=== PATIENT | female | born 1940 | race Two or more races ===

== ENCOUNTER 2020-11-12 09:21 | Outpatient (REF) | payer MEDICARE, SELFPAY ==
[2020-11-12 11:02] LABS: Alanine Aminotransferase 12 U/L (0-31); Albumin Level 4.2 g/dL (3.5-5.0); Alkaline Phosphatase 91 U/L (39-117); Anion Gap 13 (12-20); Aspartate Amino Transferase 16 U/L (5-31); Bilirubin Total 0.8 mg/dL (0.0-1.0); Blood Urea Nitrogen 17 mg/dL (9-16); Calcium 9.5 mg/dL (8.4-10.2); Carbon Dioxide 29 mmol/L (22-29); Chloride 103 mmol/L (96-108); Cholesterol 178 mg/dL; Estimated Glomerular Filt Rate > 60; Glucose Fasting 99 mg/dL (60-99); HDL Cholesterol 56 mg/dL; LDL Cholesterol Calculated 89 mg/dl; Sodium 141 mmol/L (135-145); Total Protein 7.5 g/dL (6.5-8.0); Triglycerides 167 mg/dL
[2020-11-20 20:57] LABS: Vitamin D 25-OH, D2 4 ng/mL; Vitamin D 25-OH, D3 27 ng/mL; Vitamin D 25-OH, Total 31 ng/mL (30-100)
== END 2020-11-12 09:22 | disposition home or self-care (01) ==
LOC: HO.LAB 09:21
PROVIDERS: PCP Internal Medicine; Visit Provider Internal Medicine
DX: E78.00 Pure hypercholesterolemia, unspecified (principal); E78.5 Hyperlipidemia, unspecified; E55.9 Vitamin D deficiency, unspecified
CPT/HCPCS: 36415; 80053; 80061; 82306

== ENCOUNTER 2021-02-20 21:41 | Emergency (ER) | payer MEDICARE, SELFPAY ==
[2021-02-20 21:56] VITALS: BP 227/96; PULSE 92; RESP 18; TEMP 36.8; O2SAT 93; BMI 34.5
--- NOTE | 2021-02-20 22:56 | ED_ITS ---
HPI - General Adult General Chief complaint: General Medical Stated complaint: High blood pressure Time Seen by Provider: 02/20/21 22:56 Source: patient and family (Daughter) Limitations: language barrier ([place]er speaking preferred daughter as her cell phone repair technician daughter speaks Faroese.) History of Present Illness HPI narrative: Pleasant primarily [place] Islander-speaking 80-year-old female prefers daughter as her medical esthetician who is at bedside she has a history of hyperlipidemia as well as hypertension she is currently taking lisinopril fully mg once a day and also atorvastatin she reports yesterday during routine screening she had blood pressure checked by visiting nurse through routine medical screening through insurance and found to have blood pressure that was elevated at 226/108 subsequently states she did not feel too well of feeling a little lightheaded and today she went to the pharmacy to recheck her blood pressure it was 226/118 with heart rate of 96 and this prompted her to come to the emergency room. She otherwise denies any chest pain or headache, no recent illness. States she has been compliant with her medications. She offers no other complaints. Onset (ago): day(s) Severity: moderate Pain Consistency: constant Relieving factors: none Exacerbating factors: none Associated symptoms: denies other symptoms Related Data Previous Rx's Medication Instructions Recorded loratadine 10 mg tablet 10 mg PO DAILY PRN 30 Days #30 tab 10/22/20 atorvastatin 10 mg tablet 10 mg PO DAILY #90 tab 12/04/20 lisinopril 40 mg tablet 40 mg PO DAILY #90 tab 12/04/20 hydrochlorothiazide 12.5 mg PO DAILY #14 tab 02/21/21 Allergies Allergy/AdvReac Type Severity Reaction Status Date / Time No Known Allergies Allergy Verified 02/20/21 21:56 Review of Systems Review of Systems: Constitutional: No Weight loss, No Fever, No Chills, No Night Sweats, No Fatigue, No Malaise ENT/Mouth: No Hearing loss, No Ear Pain, No Nasal Congestion, No Sinus Pain, No Hoarseness, No sore throat, No Rhinorrhea, No Swallowing Difficulty Eyes: No Eye Pain, No Swelling, No Redness, No Foreign Body, No Discharge, No Vision Changes Cardiovascular: No Chest Pain, No SOB, No Dyspnea on Exertion, No Orthopnea, No Edema, No Palpitations Respiratory: No Cough, No Sputum, No Wheezing, No Smoke Exposure, No Dyspnea Gastrointestinal: No Nausea, No Vomiting, No Diarrhea, No Constipation, No abdominal Pain, No Hematochezia, No Melena Genitourinary: no irregular bleeding, No Dysuria, No Urinary Frequency, No Hematuria, No Urinary Incontinence, No Urgency, No Flank Pain, No Urinary Flow Changes, No Hesitancy Musculoskeletal: No joint pain, No Myalgias, No Joint Swelling Skin: No Skin Lesions, No rash Neuro: No Weakness, No Numbness, No Paresthesias, No Loss of Consciousness, No Dizziness, No Headache Psych: No Social Issues Heme/Lymph: No Bruising, No Bleeding,No Lymphadenopathy Endocrine: No Polyuria, No Polydipsia, No Temperature Intolerance Yes all o ther systems are reviewed and are negative [facility] Past Medical History Medical History (Updated 02/21/21 @ 01:58 by Shivam Hollins NP) Hypertension Pure hypercholesterolemia Social History Social History Alcohol intake: never Smoked in Last 30 Days: No Use of substances other than those prescribed or required for medical reasons: No Advance Directives: No Advance Directives Information Provided: No Physical Exam Vital Signs: Vital Signs: Last Vital Signs Temp 98.3 F 02/20/21 21:56 Pulse 78 02/21/21 01:32 Resp 18 02/21/21 01:01 BP 159/69 H 02/21/21 01:32 Pulse Ox 97 02/21/21 01:32 Body Mass Index 34.5 Reviewed Const: General: cooperative and healthy appearing; No acute distress or intoxicated appearing Nutritional Appearance: average body habitus Orientation/consciousness: patient oriented x3 HENMT: Head: Yes normal to inspection Ears: hearing grossly normal bilaterally Eyes: General: appearance normal, both eyes and all related structures Visual Kirkpatrick: normal visual kirkpatrick by confrontation Neck: Neck: Yes normal visual inspection, No positive Brudzinski's sign, No positive Kernig's sign and No tender Thyroid: Thyroid normal Chest: Chest palpation & inspection: normal inspection of the chest Resp: Effort & Inspection: normal respiratory effort Auscultation: clear to auscultation bilaterally Cardio: Jugular venous distension: no JVD Rhythm: regular rhythm Heart sounds: S1 normal heart sound present and S2 normal heart sound present GI: Inspection: Yes normal to inspection Percussion: Yes normal to percussion Auscultation: normal bowel sounds : General: Yes no CVA tenderness Back/Spine/Pelvis: Back: no CVA tenderness Skin: General skin exam: no rashes or lesions noted Neuro: General: patient oriented x3 Extrem: General: Yes normal to inspection Course Reevaluation(s) Reevaluation #1: Blood pressure 227/96 on arrival Essentially no other complaints did have mild lightheadedness earlier today. Will check basic labs, EKG and she is currently on 40 mg lisinopril p.o. daily stuck in the morning I will give her 10 mg of IV labetalol and monitor. Reevaluation #2: Has been resting comfortably without complaints. Gradual decrease her blood pressure to 178/80 after 2 hours 159/69 after 3 hours with 1 dose of labetalol. I will start her on low-dose hydrochlorothiazide 12.5 which she will take at noon and in the morning she will take her lisinopril 40 mg. Her labs are otherwise reassuring. She will follow-up with her primary care doctor in 2 days. In the meantime she will keep a log of her blood pressure readings intake her primary care appointment. She feels comfortable plan as well as her daughter. Findings reviewed as well as falling low-sodium diet return and follow-up instructions. Stable for discharge. Medical Decision Making Lab Data Result diagrams: 02/20/21 23:46 02/20/21 23:45 Labs: Lab Results 02/20/21 02/20/21 02/20/21 Range/Units 23:45 23:46 23:46 WBC 9.5 (4.8-10.8) X10*3/uL RBC 4.20 (4.20-5.50) X10*6/uL Hgb 12.9 (12.0-16.0) g/dl Hct 38.0 (37-47) % MCV 90.5 (80-98) fL MCH 30.7 (27.0-33.0) pg MCHC 33.9 (31.0-35.0) g/dl RDW 12.4 (11.0-16.0) % Plt Count 252 (160-400) X10*3/uL MPV 9.6 (9.4-12.3) fL Immature Gran % (Auto) 0.2 (0.0-0.4) % Neut % (Auto) 64.3 (45-73) % Lymph % (Auto) 23.7 (20-40) % [place] % (Auto) 9.0 (2-11) % Eos % (Auto) 2.0 (0-4) % Baso % (Auto) 0.8 (0-2) % Lymph # (Auto) 2.2 (1.2-4.9) X10*3/uL [place] # (Auto) 0.9 (0.1-1.2) X10*3/uL Eos # (Auto) 0.2 (0.0-0.4) X10*3/uL Baso # (Auto) 0.1 (0.0-0.2) X10*3/uL Abs Immat Gran (auto) 0.02 (0.00-0.03) X10*3/uL Absolute Neuts (auto) 6.1 (2.0-8.3) X10*3/uL Absolute Nucleated RBC 0.000 (0.0-0.012) X10*3/uL Nucleated RBC % (auto) 0.0 (0.0-0.2) /100WBC PT 12.3 (10.8-13.0) SEC INR 1.0 (0.9-1.1) APTT 30.7 (24.1-38.0) SEC Sodium 141 (135-145) mmol/L Potassium 4.2 (3.3-5.1) mmol/L Chloride 106 (96-108) mmol/L Carbon Dioxide 28 (22-29) mmol/L Anion Gap 11 L (12-20) BUN 14 (9-16) mg/dL Creatinine 0.83 (0.5-1.4) mg/dL Estim Creat Clear Calc 65.6 Estimated GFR > 60 Random Glucose 107 (60-115) mg/dL Calcium 9.1 (8.4-10.2) mg/dL Total Bilirubin 0.4 (0.0-1.0) mg/dL AST 19 (5-31) U/L ALT 13 (0-31) U/L Alkaline Phosphatase 88 (39-117) U/L Troponin I High Sens (<3.5-17.0) ng/L Total Protein 7.1 (6.5-8.0) g/dL Albumin 4.0 (3.5-5.0) g/dL Urine Color Urine Appearance Urine pH (5.0-8.0) Ur Specific [place] (1.005-1.025) Urine Protein (NEG-TRACE) MG/DL Urine Glucose (UA) (NEG) MG/DL Urine Ketones (NEG) MG/DL Urine Blood (NEG) Urine Nitrite (NEG) Ur Leukocyte Esterase (NEG) Urine RBC (0) /HPF Urine WBC (0-4) /HPF Ur Squamous Epith Cells /LPF Urine Bacteria /LPF 02/20/21 02/21/21 Range/Units 23:46 00:19 WBC (4.8-10.8) X10*3/uL RBC (4.20-5.50) X10*6/uL Hgb (12.0-16.0) g/dl Hct (37-47) % MCV (80-98) fL MCH (27.0-33.0) pg MCHC (31.0-35.0) g/dl RDW (11.0-16.0) % Plt Count (160-400) X10*3/uL MPV (9.4-12.3) fL Immature Gran % (Auto) (0.0-0.4) % Neut % (Auto) (45-73) % Lymph % (Auto) (20-40) % [place] % (Auto) (2-11) % Eos % (Auto) (0-4) % Baso % (Auto) (0-2) % Lymph # (Auto) (1.2-4.9) X10*3/uL [place] # (Auto) (0.1-1.2) X10*3/uL Eos # (Auto) (0.0-0.4) X10*3/uL Baso # (Auto) (0.0-0.2) X10*3/uL Abs Immat Gran (auto) (0.00-0.03) X10*3/uL Absolute Neuts (auto) (2.0-8.3) X10*3/uL Absolute Nucleated RBC (0.0-0.012) X10*3/uL Nucleated RBC % (auto) (0.0-0.2) /100WBC PT (10.8-13.0) SEC INR (0.9-1.1) APTT (24.1-38.0) SEC Sodium (135-145) mmol/L Potassium (3.3-5.1) mmol/L Chloride (96-108) mmol/L Carbon Dioxide (22-29) mmol/L Anion Gap (12-20) BUN (9-16) mg/dL Creatinine (0.5-1.4) mg/dL Estim Creat Clear Calc Estimated GFR Random Glucose (60-115) mg/dL Calcium (8.4-10.2) mg/dL Total Bilirubin (0.0-1.0) mg/dL AST (5-31) U/L ALT (0-31) U/L Alkaline Phosphatase (39-117) U/L Troponin I High Sens 3.9 (<3.5-17.0) ng/L Total Protein (6.5-8.0) g/dL Albumin (3.5-5.0) g/dL Urine Color STRAW Urine Appearance CLEAR Urine pH 6.0 (5.0-8.0) Ur Specific [place] <= 1.005 (1.005-1.025) Urine Protein NEG (NEG-TRACE) MG/DL Urine Glucose (UA) NEG (NEG) MG/DL Urine Ketones NEG (NEG) MG/DL Urine Blood NEG (NEG) Urine Nitrite NEG (NEG) Ur Leukocyte Esterase 2+ H (NEG) Urine RBC 0 (0) /HPF Urine WBC 1-4 (0-4) /HPF Ur Squamous Epith Cells 2+ /LPF Urine Bacteria TRACE /LPF ECG Data Interpretation: Vent. Rate : 081 BPM Atrial Rate : 081 BPM P-R Int : 168 ms QRS Dur : 084 ms QT Int : 400 ms P-R-T Axes : 059 079 028 degrees QTc Int : 464 ms Normal sinus rhythm Normal ECG When compared with ECG of 25-DEC-2018 11:55, Premature supraventricular complexes are no longer Present Discharge Plan Discharge Clinical Impression: Hypertension Patient Disposition: Home, Self-Care Instructions: Heart Healthy Diet (ED), Low-Sodium Diet (ED), Hypertension (ED) Additional Instructions: Taking medications prescribed Keep blood pressure log of all your blood pressure Follow up with her primary care doctor in 2 days for blood pressure check Return to emergency room if any concerns or worsening symptoms Thank you Prescriptions: New hydrochlorothiazide 12.5 mg tablet 12.5 mg PO DAILY Qty: 14 RF: 0 No Action loratadine [Allergy Relief (loratadine)] 10 mg tablet 10 mg PO DAILY PRN (Reason: allergy symptoms) 30 Days Qty: 30 RF: 0 atorvastatin 10 mg tablet 10 mg PO DAILY Qty: 90 RF: 2 lisinopril 40 mg tablet 40 mg PO DAILY Qty: 90 RF: 1 Referrals: Trina Briones MD [Primary Care Provider] - 2 days
--- NOTE | 2021-02-20 23:06 | ECG_ITS ---
Test Reason : HYPERTENSION Blood Pressure : / mmHG Vent. Rate : 081 BPM Atrial Rate : 081 BPM P-R Int : 168 ms QRS Dur : 084 ms QT Int : 400 ms P-R-T Axes : 059 079 028 degrees QTc Int : 464 ms Normal sinus rhythm Normal ECG When compared with ECG of 25-DEC-2018 11:55, Premature supraventricular complexes are no longer Present Referred By: Shivam Hollins Electronically Signed By:Baldev Morejon
[2021-02-20 23:17] VITALS: BP 192/82; PULSE 79
[2021-02-20 23:32] VITALS: BP 185/84
[2021-02-20 23:51] LABS: Basophils Absolute Auto 0.1 X10*3/uL (0.0-0.2); Basophils Percent Auto 0.8 % (0-2); Eosinophils Absolute Auto 0.2 X10*3/uL (0.0-0.4); Hemoglobin 12.9 g/dl (12.0-16.0); Imm Gran Abs Auto 0.02 X10*3/uL (0.00-0.03); Imm Gran Pct Auto 0.2 % (0.0-0.4); Lymphocytes Absolute Auto 2.2 X10*3/uL (1.2-4.9); Lymphocytes Percent Auto 23.7 % (20-40); MANUAL DIFF FLAG NO; Mean Corpuscular HGB Conc 33.9 g/dl (31.0-35.0); Mean Corpuscular Hemoglobin 30.7 pg (27.0-33.0); Mean Corpuscular Volume 90.5 fL (80-98); Mean Platelet Volume 9.6 fL (9.4-12.3); Monocytes Absolute Auto 0.9 X10*3/uL (0.1-1.2); Neutrophils Absolute Auto 6.1 X10*3/uL (2.0-8.3); Neutrophils Percent Auto 64.3 % (45-73); Platelet Count 252 X10*3/uL (160-400); Red Cell Distribution Width 12.4 % (11.0-16.0); White Blood Count 9.5 X10*3/uL (4.8-10.8)
[2021-02-20 23:53] VITALS: BP 208/82; PULSE 80; RESP 18; O2SAT 93
[2021-02-20 23:54] VITALS: BP 208/82; PULSE 80
[2021-02-20] MEDS: Labetalol HCL 100 MG/20 ML VIAL 10 MG IVPUSH (23:54)
[2021-02-20 23:56] LABS: Prothrombin Time 12.3 SEC (10.8-13.0)
[2021-02-20 23:59] LABS: Partial Thromboplastin Time 30.7 SEC (24.1-38.0)
[2021-02-21] VITALS: BP 182/79; PULSE 77; RESP 18; O2SAT 87
--- NOTE | 2021-02-21 00:04 | PC.NURSE ---
pt sat dropped to 88% . pt placed on 2l nc sat improved now to 94%. pt daughter states pt has been having sob when walking. pt received both covid vac but has not been tested for covid. pt has been under stress about a travel plan her has, pt doesnt want them to go out of the country.
[2021-02-21 00:07] VITALS: BP 178/80; PULSE 69; RESP 18; O2SAT 97
[2021-02-21 00:14] LABS: Alanine Aminotransferase 13 U/L (0-31); Alkaline Phosphatase 88 U/L (39-117); Anion Gap 11 (12-20); Aspartate Amino Transferase 19 U/L (5-31); Bilirubin Total 0.4 mg/dL (0.0-1.0); Blood Urea Nitrogen 14 mg/dL (9-16); Calcium 9.1 mg/dL (8.4-10.2); Carbon Dioxide 28 mmol/L (22-29); Chloride 106 mmol/L (96-108); Creatinine Clr Calc Pharmacy 65.6; Estimated Glomerular Filt Rate > 60; Glucose Random 107 mg/dL (60-115); Potassium 4.2 mmol/L (3.3-5.1); Sodium 141 mmol/L (135-145); Total Protein 7.1 g/dL (6.5-8.0)
[2021-02-21 00:17] LABS: Troponin-I High Sensitivity 3.9 ng/L (<3.5-17.0)
[2021-02-21 00:30] LABS: Appearance Urine CLEAR; Color Urine STRAW; Glucose Urine UA NEG (NEG); Leukocyte Esterase Urine 2+ (NEG); Nitrite Urine NEG (NEG); Specific Gravity - Urine <= 1.005 (1.005-1.025); UACC Culture Trigger YES; Urine Blood NEG (NEG); Urine Ketones NEG (NEG); Urine Protein NEG (NEG-TRACE)
[2021-02-21 00:36] LABS: Bacteria Urine TRACE /LPF; RBC Urine 0 /HPF (0); Squamous Epithelial Cell Urine 2+ /LPF; UACC CULT YES
[2021-02-21 01:01] VITALS: BP 178/89; PULSE 78; RESP 18; O2SAT 98
[2021-02-21 01:05] VITALS: BP 174/91
[2021-02-21 01:32] VITALS: BP 159/69; PULSE 78; O2SAT 97
== END 2021-02-21 02:05 | disposition home or self-care (01) ==
PROVIDERS: Nurse Practitioner Primary Care; Emergency Provider Internal Medicine; PCP Internal Medicine
DX: I10 Essential (primary) hypertension (principal); Z79.899 Other long term (current) drug therapy
CPT/HCPCS: 36415; 80053; 81001; 84484; 85025; 85610; 85730; 87086; 93005; 96374; 99284; 99285

== ENCOUNTER 2021-12-14 12:20 | Outpatient (REF) | payer MEDICARE, SELFPAY ==
--- NOTE | ~2021-12-14 | XR_ITS ---
EXAMINATION: XR LUMBOSACRAL SPINE CLINICAL INFORMATION: Low back pain COMPARISON: CT abdomen pelvis 01/29/2019 TECHNIQUE: Three views of the lumbosacral spine. FINDINGS: 5 nonrib-bearing lumbar vertebral bodies are visualized. There is mild anterolisthesis of L4 and L5. Alignment is otherwise unremarkable. Lumbar vertebral body heights are maintained. There is mild narrowing of the L4/L5 and L5/S1 disc space heights. There are degenerative changes of the posterior elements of the lower lumbar spine. Sacroiliac joints are grossly symmetric. Vascular calcifications noted. XR/XR lumbar spine 2-3V IMPRESSION: Mild degenerative changes of the lower lumbar spine. No compression deformity.
== END 2021-12-14 12:21 | disposition home or self-care (01) ==
LOC: HO.XRAY 12:20
PROVIDERS: PCP Internal Medicine; Visit Provider Internal Medicine
DX: M54.50 Low back pain, unspecified (principal)
CPT/HCPCS: 72100

== ENCOUNTER 2022-01-22 09:39 | Outpatient (REF) | payer MEDICARE, SELFPAY ==
--- NOTE | ~2022-01-22 | XR_ITS ---
EXAMINATION: XR CHEST CLINICAL INFORMATION: Shortness of breath. COMPARISON: None TECHNIQUE: 2 views of the chest were obtained. FINDINGS: There is increased pulmonary vascular markings suggestive of mild CHF. The heart size is borderline enlarged. The lungs are expanded and clear. No gross bony abnormality seen. XR/XR chest 2V IMPRESSION: Mild CHF with borderline cardiomegaly.
[2022-01-22 10:55] LABS: Hematocrit 40.8 % (37.0-47.0); Hemoglobin 13.5 g/dl (12.0-16.0); Mean Corpuscular HGB Conc 33.1 g/dl (31.0-35.0); Mean Corpuscular Hemoglobin 30.9 pg (27.0-33.0); Mean Corpuscular Volume 93.4 fL (80.0-98.0); Mean Platelet Volume 9.5 fL (9.4-12.3); Platelet Count 292 X10*3/uL (160-400); Red Blood Count 4.37 X10*6/uL (4.20-5.50); Red Cell Distribution Width 12.8 % (11.0-16.0); White Blood Count 8.2 X10*3/uL (4.8-10.8)
[2022-01-22 11:05] LABS: Anion Gap 13 (12-20); Blood Urea Nitrogen 18 mg/dL (9-16); Calcium 9.7 mg/dL (8.4-10.2); Carbon Dioxide 26 mmol/L (22-29); Chloride 104 mmol/L (96-108); Estimated Glomerular Filt Rate > 60; Glucose Random 104 mg/dL (60-115); Potassium 4.2 mmol/L (3.3-5.1); Sodium 139 mmol/L (135-145)
[2022-01-22 11:25] LABS: B Type Natriuretic Peptide 52 pg/mL (<100)
== END 2022-01-22 09:40 | disposition home or self-care (01) ==
LOC: HO.XRAY 09:39
PROVIDERS: PCP Internal Medicine; Referring Provider Internal Medicine; Visit Provider Internal Medicine Cardiovascular Disease
DX: I10 Essential (primary) hypertension (principal); E78.5 Hyperlipidemia, unspecified; R06.02 Shortness of breath; Z79.899 Other long term (current) drug therapy
CPT/HCPCS: 36415; 71046; 80048; 83880; 85027; 93005; 99202

== ENCOUNTER → 2022-02-02 10:27 | Outpatient (BNVA) | payer MEDICARE, SELFPAY | PROVIDERS: PCP Internal Medicine; Visit Provider Surgery Vascular Surgery | DX: I83.11 Varicose veins of right lower extremity with inflammation (principal) | CPT/HCPCS: 99202 ==

== ENCOUNTER → 2022-02-12 10:00 | Outpatient (REF) | payer MEDICARE, SELFPAY ==
--- NOTE | ~2022-02-12 | NM_ITS ---
Myocardial perfusion study Indication: Shortness of breath evaluate for myocardial ischemia Technique: The patient was brought in for a Lexiscan perfusion study on 02/12/2022. Patient performed low-level exercise and was injected 0.4 mg of Lexiscan intravenously. Within a minute of injection, 30 mCi of sestamibi was given intravenously. Images were obtained using the SPECT gamma camera interlaced with the gating device. Images were obtained in supine position. Resting perfusion study was performed on 02/15/2022. Patient was administered 30 mCi of sestamibi intravenously at rest. Images were then obtained in supine position. Images obtained with and without CT attenuation. Total DLP 122 mGy-cm. Images were processed with the software and compared side to side in short axis, horizontal long axis and vertical long axis views. Findings: The stress perfusion study showed non attenuated and attenuated corrected images show normal uptake of radiotracer in all segments of LV myocardium.. The gated study shows normal LV systolic function with calculated LVEF of 67%. LV cavity is normal in size. The gated study shows normal systolic wall thickening and contraction of segments. Resting study shows no change in perfusion pattern compared to stress perfusion study. Gating at rest reveals normal systolic wall motion with ejection fraction at 62%. The findings are consistent with normal myocardial perfusion. NM/NM pati perf SPECT rest & str Impression: 1. Myocardial perfusion imaging study shows normal myocardial perfusion 2. Gated LVEF is 67% 3. Transient ischemic dilatation not present EKG is nondiagnostic for ischemia
--- NOTE | 2022-02-12 10:05 | CA_ITS ---
Acquisition Time: 2022-02-12 10:23:13 Total Exercise Time: 00:02:00 Test Indications: SOB Medications: AMLODIPINE ASA LISINOPRIL ATORVASTATIN Protocol: LEXISCAN Max HR: 126 BPM 89% of Pred: 141 BPM Max BP: 132/080 mmHG Max Work Load: 1.0 METS Pharmacological stress test with Lexiscan injection, while sitting and kicking her legs, without anginal symptoms, with isolated PACs, with norotensive response to injection, with nondiagnostic EKG for ischemia. In recovery she had prolonged sinus tachycardia that was treated with Aminophylline 75mg IVP to reverse lexican with improvement in heart rate. Nuclear images pending. Test reviewed with Dr Izquierdo. Referred By: Isaiah Izquierdo Overread By: LEE PERDOMO
== END ==
LOC: HO.CARD 10:00
PROVIDERS: Visit Provider Internal Medicine Cardiovascular Disease
DX: R06.02 Shortness of breath (principal)
CPT/HCPCS: 78452; 93017; A9500; J0280; J2785

== ENCOUNTER → 2022-03-09 08:02 | Outpatient (REF) | payer MEDICARE, SELFPAY ==
--- NOTE | 2022-03-09 08:10 | CA_ITS ---
Transthoracic Echocardiogram Patient (Last, First, Middle): Araseli Chávez E Gender: Female Date of : 1940 Age: 81 Procedure Date: 03/09/2022 Procedure Type: Transthoracic Echocardiogram Location: OP Height: 152.4 cm Weight: 147.87 kg BSA: 2.30 m2 Heart Rate: 96 bpm BP: 120 / 80 mmHg Business Intelligence Administrator: SENTHIL Referring MD: Isaiah Izquierdo MD Culturist: Isaiah Izquierdo MD Symptoms: R06.02 - Shortness of breath Study Quality: Adequate ECG Rhythm: Sinus Conclusions: - 1. Normal LV systolic function with impaired relaxation filling pattern and elevated filling pressures 2. Mild to moderate aortic stenosis 3. Severe mitral annular calcification 4. No gross pericardial effusion Findings Left Ventricle Normal left ventricular size, thickness, and systolic function. The visually estimated ejection fraction is between 60-65%. Regional wall motion abnormalities can not be excluded due to suboptimal endocardial definition. Spectral Doppler is indicative of an impaired relaxation filling pattern. Elevated filling pressures. E/E prime ratio is >15, consistent with elevated filling pressures. Right Ventricle Normal right ventricular cavity size and systolic function. Atria The left atrium is likely dilated. There is no evidence of interatrial shunt. The right atrium was not well visualized. Aortic Valve There is mild calcification of the aortic valve. There is mild thickening of the aortic valve. There is mild to moderate aortic valve stenosis. The mean gradient is 11 mmHg. The aortic valve area is 1.29 cm2. There is no aortic valve regurgitation. Mitral Valve There is mild anterior and severe posterior mitral leaflet thickening. There is severe mitral annular calcification. There is trace mitral valve regurgitation. There is no mitral valve stenosis. Pulmonic Valve The pulmonic valve was not well visualized. Tricuspid Valve The tricuspid valve was not well visualized. Tricuspid regurgitation envelope is inadequate for calculation of right ventricular systolic pressure. Normal right atrial pressure. Great Vessels All visible segments of the aorta are normal in size. The pulmonary artery was not well visualized. Venous The inferior vena cava is normal in size and collapses greater than 50% with inspiration. Pericardium/Pleural There is no evidence of pericardial effusion. Prior Study Comparison No prior study available for comparison. Measurements 2D Linear Measurements IVSd: 1.10 0.6-0.9/0.6-1.0 cm LVIDd: 4.85 3.9-5.3/4.2-5.9 cm LVIDs: 2.74 2.0-3.6 cm LVPWd: 0.75 0.7-1.1 cm LA Diam: 3.90 2.7-3.8/3.0-4.0 cm LV Mass: 193.59 67-162/88-224 g LVOT Diam: 1.90 3.0+(-)1.3 cm 2D Systolic Function EF 4C: 59.60 >55% EF 2C: 71.80 >55% EF BiP: 64.60 >55% Mitral Valve MV Pk E: 1.09 MV PK A: 1.34 MV Decel Time: 194.00 E/A: 0.80 E'Lateral: 5.66 E'Medial: 3.05 E/E' Med: 35.70 E/E' Lat: 19.30 PHT: 57.00 MVA PHT: 3.86 Decel [place]: 5.61 Aortic Valve AoV Pk Jono: 2.25 AoV Mn Jono: 1.55 AoV VTI: 0.50 AoV Pk Grad: 20.00 Aov Mn Grad: 11.00 ANSLEY Cont.VTI: 1.29 LVOT LVOT Pk Jono: 0.96 LVOT Mn Jono: 0.67 LVOT VTI: 0.23 LVOT Pk Grad: 4.00 LVOT Mn Grad: 2.00 LVOT Diam: 1.90 LVOT Area: 2.84 Diastolic Function MV Pk E: 1.09 MV Pk A: 1.34 E/A: 0.80 E'Medial: 3.05 E/E' Med: 35.70 E' Laterial: 5.66 E/E' Lat: 19.30 Right Ventricle TAPSE (mm): 20.70 TVS' Jono: 11.10 Tricuspid Valve RA Press: 3.00 Great Vessels Aorta Sinus of Valsalva: 2.90 2.0-3.5 cm Ao Asc: 3.30 2.1-3.4 cm Pulmonary Valve PV Pk Jono: 1.13 Peak PV Grad: 5.00 Updated in Other Vendor System with Status of Final Isaiah Izquierdo MD electronically signed on 03/10/2022 2:34:00 PM with status of Final
[2022-03-09 09:52] LABS: Alanine Aminotransferase 12 U/L (0-31); Albumin Level 4.1 g/dL (3.5-5.0); Alkaline Phosphatase 99 U/L (39-117); Anion Gap 15 (12-20); Aspartate Amino Transferase 15 U/L (5-31); Bilirubin Total 0.6 mg/dL (0.0-1.0); Blood Urea Nitrogen 20 mg/dL (9-16); Calcium 9.3 mg/dL (8.4-10.2); Carbon Dioxide 24 mmol/L (22-29); Chloride 104 mmol/L (96-108); Cholesterol 167 mg/dL; Estimated Glomerular Filt Rate > 60; Glucose Fasting 106 mg/dL (60-99); HDL Cholesterol 61 mg/dL; LDL Cholesterol Calculated 82 mg/dl; Potassium 4.2 mmol/L (3.3-5.1); Sodium 139 mmol/L (135-145); Total Protein 7.5 g/dL (6.5-8.0); Triglycerides 120 mg/dL
== END ==
LOC: HO.CARD 08:02
PROVIDERS: Absent Provider Internal Medicine; PCP Internal Medicine; Visit Provider Internal Medicine Cardiovascular Disease
DX: R06.02 Shortness of breath (principal); E78.5 Hyperlipidemia, unspecified; I10 Essential (primary) hypertension
CPT/HCPCS: 36415; 80053; 80061; 93306

== ENCOUNTER → 2022-03-23 15:03 | Outpatient (BNVA) | payer MEDICARE, SELFPAY | PROVIDERS: PCP Internal Medicine; Referring Provider Internal Medicine; Visit Provider Internal Medicine Cardiovascular Disease | DX: R06.02 Shortness of breath (principal); I35.0 Nonrheumatic aortic (valve) stenosis | CPT/HCPCS: 99212 ==

== ENCOUNTER 2022-05-27 13:05 | Outpatient (REF) | payer MEDICARE, SELFPAY | END 2022-05-27 13:06 | disposition home or self-care (01) | LOC: HO.US 13:05 | PROVIDERS: Visit Provider Surgery Vascular Surgery | DX: I83.11 Varicose veins of right lower extremity with inflammation (principal); I83.12 Varicose veins of left lower extremity with inflammation | CPT/HCPCS: 93970 ==

== ENCOUNTER → 2022-06-01 13:06 | Outpatient (BNVA) | payer MEDICARE, SELFPAY | PROVIDERS: PCP Internal Medicine; Visit Provider Surgery Vascular Surgery | DX: I83.11 Varicose veins of right lower extremity with inflammation (principal) | CPT/HCPCS: 99212 ==

== ENCOUNTER 2023-01-24 11:27 | Inpatient (IN) | payer MEDICARE, SELFPAY ==
[2023-01-24] VITALS (15 sets, daily range): BP systolic 119–152; BP diastolic 60–71; PULSE 85–107; RESP 16–22; TEMP 36.1–37.2; O2SAT 79–97; BMI 32.6
--- NOTE | ~2023-01-24 | CT_ITS ---
EXAMINATION: CT ANGIOGRAM OF THE CHEST WITH AND WITHOUT CONTRAST (CT PULMONARY ANGIOGRAM FOR PE) CLINICAL INFORMATION: Reason for Exam hypoxia COMPARISON: Previous chest x-ray most recent from yesterday TECHNIQUE: Prior to contrast administration, noncontrast localization images were obtained. Subsequently, multidetector volumetric imaging was performed from the thoracic inlet to below the diaphragms following the administration of 65 mL Omnipaque 350 intravenous contrast. No contrast reaction reported Sagittal, coronal, and MIP oblique sagittal reformatted images were obtained on the CT workstation, uploaded to PACS, and reviewed. This CT examination was performed using dose optimization techniques as appropriate, variously including the following: *Automated exposure control *Adjustment of mA and/or kV according to patient size (this includes techniques or standardized protocols for targeted exams where dose is matched to indication/reason for exam; i.e. extremities or head) *Use of iterative reconstruction technique Total exam dose-length product 317 mGy-cm FINDINGS: QUALITY OF STUDY/CONTRAST BOLUS: Satisfactory. PULMONARY ARTERIES: No pulmonary emboli. Pulmonary arteries are prominent, main pulmonary artery measuring 3.6 cm questionable for pulmonary artery hypertension. THORACIC AORTA: No aneurysm. LUNG: There is atelectasis/small infiltrate seen in the left upper lobe and left lower lobes and right lower lobe. There are scattered areas of groundglass attenuation and increased interstitial markings seen in the right upper, middle and right lower lobes probably representing pneumonitis. PLEURA: No pleural effusion or pneumothorax. MEDIASTINUM: Upper normal heart size. No pericardial effusion. No hilar or mediastinal lymphadenopathy. No evidence of septal bowing or right heart strain. CORONARY ARTERY CALCIFICATION: Mild CHEST WALL/AXILLA: No axillary or internal mammary lymphadenopathy. OSSEOUS STRUCTURES: No acute or suspicious osseous abnormality. Degenerative changes of the spine. UPPER ABDOMEN: Unremarkable. No reflux of contrast into the hepatic veins to suggest elevated right heart pressures. CT/CT angio chest PE protocol IMPRESSION: Left upper and left lower lobe and right lower lobe atelectasis/small infiltrates and scattered areas of probable pneumonitis in the right lung. No evidence of pulmonary embolism. Enlarged pulmonary arteries questionable for pulmonary artery hypertension. VTE: negative
--- NOTE | ~2023-01-24 | XR_ITS ---
EXAMINATION: XR CHEST CLINICAL INFORMATION: Reason for Exam SOB COMPARISON: Chest radiograph 01/22/2022 TECHNIQUE: One view of the chest FINDINGS: Lines and tubes: None. Patchy left greater than right bibasilar airspace opacities. Possible trace bilateral pleural effusions. No pneumothorax. Unchanged cardiomediastinal silhouette. XR/XR chest 1V IMPRESSION: 1. Patchy left greater than right bibasilar airspace opacities which may reflect infection or aspiration. 2. Possible trace bilateral pleural effusions.
--- NOTE | 2023-01-24 11:37 | ECG_ITS ---
Test Reason : SOB Blood Pressure : / mmHG Vent. Rate : 086 BPM Atrial Rate : 086 BPM P-R Int : 168 ms QRS Dur : 082 ms QT Int : 368 ms P-R-T Axes : 064 079 040 degrees QTc Int : 440 ms Normal sinus rhythm Normal ECG When compared with ECG of 20-FEB-2021 23:42, No significant change was found Referred By: Jung Mendoza Electronically Signed By:JUAN A CLEMENT MD
--- NOTE | 2023-01-24 11:39 | ED_ITS ---
HPI - General Adult General Chief complaint: Upper Respiratory Symptoms Stated complaint: SOB/Cough/Dizziness Time Seen by Provider: 01/24/23 11:47 Source: patient and family Mode of arrival: ambulatory Limitations: no limitations History of Present Illness HPI narrative: 82-year-old [place]-speaking female with history of PEs on Xarelto, HTN, HLD, mild to moderate aortic stenosis, PVD, asthma who presents to the ER from home complaining of 6 days of worsening chest congestion, productive cough, shortness of breath associated with generalized malaise, body aches and headache. No known sick contacts at home. Patient has been taking Tylenol for her body aches and has been compliant with her pulmonary inhalers. She states she has been bringing up yellow phlegm when she coughs. Her symptoms have been worsening over the last week. She denies any chest pain, nausea, vomiting, diarrhea or abdominal pain. No fever but she has been having chills all week. MD complaint: Cough and shortness of breath Onset (ago): day(s) () Location: head, chest and back Radiation: non-radiation Severity: moderate Quality: aching Pain Consistency: constant Relieving factors: medication Exacerbating factors: none Associated symptoms: cough, fever/chills, headaches, loss of appetite, malaise, shortness of breath and weakness Treatments prior to arrival: none Related Data Home Medications Medication Instructions Recorded Confirmed cholecalciferol (vitamin D3) 25 25 mcg PO DAILY 01/22/22 12/29/22 mcg (1,000 unit) capsule omega 7-fbw-bzc-fish oil 300 1 cap PO DAILY 01/22/22 12/29/22 mg-1,000 mg capsule (Fish Oil) Previous Rx's Medication Instructions Recorded atorvastatin 10 mg tablet 10 mg PO DAILY #90 tabs 08/05/22 amlodipine 5 mg tablet 5 mg PO DAILY 90 days #90 tabs 11/22/22 lisinopril 40 mg tablet 40 mg PO DAILY 90 days #90 tabs 11/22/22 furosemide 20 mg tablet 20 mg PO DAILY 90 days #90 tabs 12/15/22 beclomethasone dipropionate 40 2 inh inhalation Q12H 30 days 12/29/22 mcg/actuation HFA breath activated #10.6 grams aerosol (Qvar RediHaler) rivaroxaban 20 mg tablet 20 mg PO DAILY 90 days #90 tabs 12/29/22 fluticasone propionate 44 1 puff inhalation BID 30 days 12/30/22 mcg/actuation HFA aerosol inhaler #10.6 grams (Flovent HFA) Allergies Allergy/AdvReac Type Severity Reaction Status Date / Time No Known Allergies Allergy Verified 01/24/23 11:35 Review of Systems Review of Systems: Yes all other systems are reviewed and are negative [facility] Past Medical History Medical History Aortic stenosis Dyspepsia Hypertension Lumbar pain Mitral regurgitation Pulmonary emboli Pure hypercholesterolemia Venous (peripheral) insufficiency Surgical History History of abdominoplasty History of tubal ligation Hx of cardiac cath Family History Family History Father Stroke Mother Stroke Social History Social History Housing: Apartment Alcohol intake: never Patient Tobacco Use Status: Never used Tobacco e-Cigarette/Vaping Use: Never Used Second Hand Smoke Exposure: No Use of substances other than those prescribed or required for medical reasons: No Advance Directives: No Advance Directives Information Provided: Yes service: No Current occupational status: disabled Cognitive needs: No Hearing needs: No Vision needs: No Physical Exam ED Vital Signs: Vital Signs - 24 hr 01/24/23 11:36 01/24/23 12:18 01/24/23 12:18 Temperature 99 F Pulse Rate 105 H 96 Respiratory Rate 22 H 18 18 Blood Pressure 152/71 H Pulse Oximetry 79 L Oxygen Delivery Method Room Air Oxygen Flow Rate 01/24/23 12:00 01/24/23 11:50 01/24/23 12:31 Temperature Pulse Rate 92 Respiratory Rate 16 Blood Pressure 132/69 Pulse Oximetry 95 81 L 89 L Oxygen Delivery Method High Flow Nasal Cannula Room Air Nasal Cannula Oxygen Flow Rate 9 01/24/23 13:15 Temperature Pulse Rate Respiratory Rate Blood Pressure Pulse Oximetry 91 L Oxygen Delivery Method High Flow Nasal Cannula Oxygen Flow Rate BMI result Body Mass Index 32.6 Appearance: Alert. Oriented X3. No acute distress. Head: normocephalic, atraumatic. Eyes: Pupils equal, round and reactive to light. ENT: Pharynx normal. No tonsillar swelling or exudate. Neck: Normal inspection. Neck supple. CVS: Normal heart rate and rhythm. Pulses normal. Respiratory: No respiratory distress. Breath sounds end-expiratory wheeze at the bilateral bases only, otherwise slightly coarse throughout without any rhonchi or rales appreciated. Breathing comfortably. Abdomen: Soft and nontender. +BS x4 Skin: Skin warm and dry. Normal skin color. Normal skin turgor. No rashes. Extremities: No lower extremity edema. No joint swelling. Neuro/psych: Oriented X 3. No motor deficit. No sensory deficit. CN II-XII intact. Normal speech and cognition. Course Course Course Narrative: RME: 82 yold female with pmh of PE presents to the ED for cough, SOB, headache, and sore throat for 5 days. 02 sat on room air 79%. negative for leg swelling or calf pain. EKG and labs ordered. Charged nurse called by Triage Nurse Delvin and patient was brought into the ED immediatley Reevaluation(s) Reevaluation #1: Patient saturating 89 90% on 6 L nasal cannula. No respiratory distress. She was transitioned to high-flow nasal cannula 50% FiO2, 50 liters/minute. Saturating 96% on this. Chest x-ray is showing left greater than right patchy opacities. Given IV Rocephin and azithromycin for community-acquired pneumonia. Will also give a dose of steroids for pneumonia and slight wheezing on examination. She is getting an albuterol treatment now. Will reassess. Will plan for admission. Time: 12:30 Medications Administered Discontinued Medications Generic Name Dose Route Start Last Admin Trade Name Michaelq PRN Reason Stop Dose Admin Albuterol Sulfate 5 mg 01/24/23 11:55 01/24/23 12:17 Albuterol Sulfate (0.083%) 2.5 Mg/3 Ml Vial.Neb INHALE 01/24/23 11:56 5 mg ONCE ONE Administration Ceftriaxone Sodium 1 gm/ 50 mls @ 100 mls/hr 01/24/23 12:20 01/24/23 13:43 Sodium Chloride IV 01/24/23 12:49 Infused ONCE ONE Infusion Azithromycin 500 mg/ Sodium 250 mls @ 125 mls/hr 01/24/23 12:20 01/24/23 13:10 Chloride IV 01/24/23 14:19 125 mls/hr ONCE ONE Administration Methylprednisolone Sodium Succinate 40 mg 01/24/23 12:24 01/24/23 12:40 Methylprednisolone Sod Succ 40 Mg/Ml Vial IVPUSH 01/24/23 12:25 40 mg ONCE ONE Administration Medical Decision Making Medical Decision Making [facility] [place] Narrative: 82-year-old [place]-speaking female with history of PEs on Xarelto, HTN, HLD, mild to moderate aortic stenosis, PVD, asthma who presents to the ER from home complaining of 6 days of worsening chest congestion, productive cough, shortness of breath associated with generalized malaise, body aches and headache. Patient was hypoxic to 79% on arrival to the emergency department. She was ultimately placed on 50% high-flow nasal cannula with improvement in her oxygen saturations. She was not in any respiratory distress, lung sounds revealed course miss and end-expiratory wheezes at the bases only. She was given albuterol, IV Solu-Medrol. Chest x-ray reviewed, looks like left lower lobe pneumonia, possible infiltrate on the right as well. There is small pleural effusions. Her BNP is normal, doubt acute CHF. Will treat for community- acquired pneumonia with Rocephin and azithromycin. Will admit to the hospital. Patient and family updated on plan of care. Differential Diagnosis Differential Diagnoses: The differential diagnosis associated with the presentation includes Acute hypoxic respiratory failure due to pneumonia, viral syndrome, CHF exacerbation, asthma exacerbation, less likely pulmonary embolism given that she is already anticoagulated Admission/Observation Consideration of admission/observation: Escalation of care including admission/observation considered Hypoxic requiring significant amount of oxygen, will require admission Consult Healthcare Provider Management of the patient was discussed with: Hospitalist Lab Data [facility] [place] Lab Attestation statement: I reviewed the patient's lab results. 01/24/23 12:13 01/24/23 12:13 Labs: Lab Results 01/24/23 01/24/23 01/24/23 Range/Units 12:13 12:13 12:13 WBC 12.0 H (4.8-10.8) X10*3/uL RBC 4.32 (4.20-5.50) X10*6/uL Hgb 13.2 (12.0-16.0) g/dl Hct 39.4 (37.0-47.0) % MCV 91.2 (80.0-98.0) fL MCH 30.6 (27.0-33.0) pg MCHC 33.5 (31.0-35.0) g/dl RDW 12.8 (11.0-16.0) % Plt Count 277 (160-400) X10*3/uL MPV 9.5 (9.4-12.3) fL Immature Gran % (Auto) 0.2 (0.0-0.4) % Neut % (Auto) 74.8 H (45-73) % Lymph % (Auto) 12.3 L (20-40) % Cache % (Auto) 11.5 H (2-11) % Eos % (Auto) 0.7 (0-4) % Baso % (Auto) 0.5 (0-2) % Lymph # (Auto) 1.5 (1.2-4.9) X10*3/uL [place] # (Auto) 1.4 H (0.1-1.2) X10*3/uL Eos # (Auto) 0.1 (0.0-0.4) X10*3/uL Baso # (Auto) 0.1 (0.0-0.2) X10*3/uL Abs Immat Gran (auto) 0.03 (0.00-0.03) X10*3/uL Absolute Neuts (auto) 9.0 H (2.0-8.3) x10*3/uL Absolute Nucleated RBC 0.000 (0.0-0.012) X10*3/uL Nucleated RBC % (auto) 0.0 (0.0-0.2) /100WBC PT 13.7 H (10.0-13.1) SEC INR 1.2 H (0.9-1.1) APTT 29.2 (26.0-36.4) SEC Sodium 134 L (135-145) mmol/L Potassium 4.2 (3.3-5.1) mmol/L Chloride 99 (96-108) mmol/L Carbon Dioxide 24 (22-29) mmol/L Anion Gap 15 (12-20) BUN 13 (9-16) mg/dL Creatinine 0.73 (0.5-1.4) mg/dL Estim Creat Clear Calc 65.3 Estimated GFR > 60 Random Glucose 114 (60-115) mg/dL Lactic Acid (0.5-2.0) mmol/L Calcium 9.5 (8.4-10.2) mg/dL Total Bilirubin 0.8 (0.0-1.0) mg/dL AST 14 (5-31) U/L ALT 11 (0-31) U/L Alkaline Phosphatase 102 (39-117) U/L Troponin I High Sens (<3.5-17.0) ng/L B-Natriuretic Peptide (<100) pg/mL Total Protein 8.1 H (6.5-8.0) g/dL Albumin 4.0 (3.5-5.0) g/dL Procalcitonin 0.02 ng/mL Influenza Type A (PCR) (Negative) Influenza Type B (PCR) (Negative) RSV RNA Qual (PCR) (Negative) SARS-CoV-2 RNA (RT-PCR) (Negative) 01/24/23 01/24/23 01/24/23 Range/Units 12:13 12:13 12:13 WBC (4.8-10.8) X10*3/uL RBC (4.20-5.50) X10*6/uL Hgb (12.0-16.0) g/dl Hct (37.0-47.0) % MCV (80.0-98.0) fL MCH (27.0-33.0) pg MCHC (31.0-35.0) g/dl RDW (11.0-16.0) % Plt Count (160-400) X10*3/uL MPV (9.4-12.3) fL Immature Gran % (Auto) (0.0-0.4) % Neut % (Auto) (45-73) % Lymph % (Auto) (20-40) % [place] % (Auto) (2-11) % Eos % (Auto) (0-4) % Baso % (Auto) (0-2) % Lymph # (Auto) (1.2-4.9) X10*3/uL [place] # (Auto) (0.1-1.2) X10*3/uL Eos # (Auto) (0.0-0.4) X10*3/uL Baso # (Auto) (0.0-0.2) X10*3/uL Abs Immat Gran (auto) (0.00-0.03) X10*3/uL Absolute Neuts (auto) (2.0-8.3) x10*3/uL Absolute Nucleated RBC (0.0-0.012) X10*3/uL Nucleated RBC % (auto) (0.0-0.2) /100WBC PT (10.0-13.1) SEC INR (0.9-1.1) APTT (26.0-36.4) SEC Sodium (135-145) mmol/L Potassium (3.3-5.1) mmol/L Chloride (96-108) mmol/L Carbon Dioxide (22-29) mmol/L Anion Gap (12-20) BUN (9-16) mg/dL Creatinine (0.5-1.4) mg/dL Estim Creat Clear Calc Estimated GFR Random Glucose (60-115) mg/dL Lactic Acid 1.2 (0.5-2.0) mmol/L Calcium (8.4-10.2) mg/dL Total Bilirubin (0.0-1.0) mg/dL AST (5-31) U/L ALT (0-31) U/L Alkaline Phosphatase (39-117) U/L Troponin I High Sens 4.7 (<3.5-17.0) ng/L B-Natriuretic Peptide 44 (<100) pg/mL Total Protein (6.5-8.0) g/dL Albumin (3.5-5.0) g/dL Procalcitonin ng/mL Influenza Type A (PCR) (Negative) Influenza Type B (PCR) (Negative) RSV RNA Qual (PCR) (Negative) SARS-CoV-2 RNA (RT-PCR) (Negative) 01/24/23 Range/Units 12:14 WBC (4.8-10.8) X10*3/uL RBC (4.20-5.50) X10*6/uL Hgb (12.0-16.0) g/dl Hct (37.0-47.0) % MCV (80.0-98.0) fL MCH (27.0-33.0) pg MCHC (31.0-35.0) g/dl RDW (11.0-16.0) % Plt Count (160-400) X10*3/uL MPV (9.4-12.3) fL Immature Gran % (Auto) (0.0-0.4) % Neut % (Auto) (45-73) % Lymph % (Auto) (20-40) % [place] % (Auto) (2-11) % Eos % (Auto) (0-4) % Baso % (Auto) (0-2) % Lymph # (Auto) (1.2-4.9) X10*3/uL [place] # (Auto) (0.1-1.2) X10*3/uL Eos # (Auto) (0.0-0.4) X10*3/uL Baso # (Auto) (0.0-0.2) X10*3/uL Abs Immat Gran (auto) (0.00-0.03) X10*3/uL Absolute Neuts (auto) (2.0-8.3) x10*3/uL Absolute Nucleated RBC (0.0-0.012) X10*3/uL Nucleated RBC % (auto) (0.0-0.2) /100WBC PT (10.0-13.1) SEC INR (0.9-1.1) APTT (26.0-36.4) SEC Sodium (135-145) mmol/L Potassium (3.3-5.1) mmol/L Chloride (96-108) mmol/L Carbon Dioxide (22-29) mmol/L Anion Gap (12-20) BUN (9-16) mg/dL Creatinine (0.5-1.4) mg/dL Estim Creat Clear Calc Estimated GFR Random Glucose (60-115) mg/dL Lactic Acid (0.5-2.0) mmol/L Calcium (8.4-10.2) mg/dL Total Bilirubin (0.0-1.0) mg/dL AST (5-31) U/L ALT (0-31) U/L Alkaline Phosphatase (39-117) U/L Troponin I High Sens (<3.5-17.0) ng/L B-Natriuretic Peptide (<100) pg/mL Total Protein (6.5-8.0) g/dL Albumin (3.5-5.0) g/dL Procalcitonin ng/mL Influenza Type A (PCR) NEGATIVE (Negative) Influenza Type B (PCR) NEGATIVE (Negative) RSV RNA Qual (PCR) NEGATIVE (Negative) SARS-CoV-2 RNA (RT-PCR) NEGATIVE (Negative) Independent Interpretation I performed an independent interpretation of an: EKG and Plain X-Ray Interpretation: CXR with patchy infiltrate of LLL, loss of costovertebral angle. Agree with radiologist's read. EKG Radiology Impression Discussion of test interpretation with radiology: I have reviewed the radiologist's reading. Radiologist Impression: EXAMINATION: XR CHEST CLINICAL INFORMATION: Reason for Exam SOB COMPARISON: Chest radiograph? 01/22/2022 TECHNIQUE: One view of the chest FINDINGS: Lines and tubes: None. Patchy left greater than right bibasilar airspace opacities. Possible trace bilateral pleural effusions. No pneumothorax. Unchanged cardiomediastinal silhouette. XR/XR chest 1V IMPRESSION: 1.? Patchy left greater than right bibasilar airspace opacities which may reflect infection or aspiration. 2.? Possible trace bilateral pleural effusions. Independent Historian Clinical information obtained from an independent historian. History obtained from or confirmed by: Other (Adult daughters were at the bedside) External Record Review External record reviewed: Office record, Outpatient record, Prior outpatient labs and Prior outpatient radiology Tests considered The following testing was considered but not selected: CT angio of the chest was considered however patient is already anticoagulated, would not change care. Prescription Management I considered prescription management with: Antibiotic Chronic Conditions Patient?s care impacted by: Hypertension and Other (Asthma, pulmonary embolism) Critical Care Time Critical Care Time Critical Care Time: Yes Total Critical Care Time: 49 Attestation: I have personally provided critical care time exclusive of time spent on separately billable procedures. Time includes review of lab data, radiology results, discussion with consultants, and monitoring for potential decompensation. Intervention performed as documented. Discharge Plan Discharge Clinical Impression: Acute respiratory failure with hypoxia, CAP (community acquired pneumonia) Patient Disposition: Admitted As Inpatient
[2023-01-24] MEDS: Albuterol Sulfate (0.083%) 2.5 MG/3 ML VIAL.NEB 5 MG INHALE (12:17)
[2023-01-24 12:19] LABS: MANUAL DIFF FLAG NO
[2023-01-24 12:21] LABS: Basophils Absolute Auto 0.1 X10*3/uL (0.0-0.2); Basophils Percent Auto 0.5 % (0-2); Eosinophils Absolute Auto 0.1 X10*3/uL (0.0-0.4); Eosinophils Percent Auto 0.7 % (0-4); Hematocrit 39.4 % (37.0-47.0); Hemoglobin 13.2 g/dl (12.0-16.0); Imm Gran Abs Auto 0.03 X10*3/uL (0.00-0.03); Imm Gran Pct Auto 0.2 % (0.0-0.4); Lymphocytes Absolute Auto 1.5 X10*3/uL (1.2-4.9); Lymphocytes Percent Auto 12.3 % (20-40); Mean Corpuscular HGB Conc 33.5 g/dl (31.0-35.0); Mean Corpuscular Hemoglobin 30.6 pg (27.0-33.0); Mean Corpuscular Volume 91.2 fL (80.0-98.0); Mean Platelet Volume 9.5 fL (9.4-12.3); Monocytes Absolute Auto 1.4 X10*3/uL (0.1-1.2); Monocytes Percent Auto 11.5 % (2-11); Neutrophils Percent Auto 74.8 % (45-73); Platelet Count 277 X10*3/uL (160-400); Red Blood Count 4.32 X10*6/uL (4.20-5.50); Red Cell Distribution Width 12.8 % (11.0-16.0)
[2023-01-24 12:26] LABS: INTERNATIONAL NORM RATIO 1.2 (0.9-1.1); Prothrombin Time 13.7 SEC (10.0-13.1)
[2023-01-24 12:28] LABS: Partial Thromboplastin Time 29.2 SEC (26.0-36.4)
[2023-01-24 12:29] LABS: Lactic Acid 1.2 mmol/L (0.5-2.0)
[2023-01-24 12:38] LABS: Alanine Aminotransferase 11 U/L (0-31); Alkaline Phosphatase 102 U/L (39-117); Anion Gap 15 (12-20); Aspartate Amino Transferase 14 U/L (5-31); Bilirubin Total 0.8 mg/dL (0.0-1.0); Blood Urea Nitrogen 13 mg/dL (9-16); Calcium 9.5 mg/dL (8.4-10.2); Carbon Dioxide 24 mmol/L (22-29); Chloride 99 mmol/L (96-108); Creatinine Clr Calc Pharmacy 65.3; Estimated Glomerular Filt Rate > 60; Glucose Random 114 mg/dL (60-115); Potassium 4.2 mmol/L (3.3-5.1); Sodium 134 mmol/L (135-145); Total Protein 8.1 g/dL (6.5-8.0)
[2023-01-24 12:39] LABS: Troponin-I High Sensitivity 4.7 ng/L (<3.5-17.0)
[2023-01-24] MEDS: methylPREDNISolone Sod Succ 40 MG/ML VIAL IVPUSH ×2 (12:40→22:28)
[2023-01-24 12:45] LABS: B Type Natriuretic Peptide 44 pg/mL (<100)
[2023-01-24 13:04] LABS: Influenza A PCR NEGATIVE (Negative); Influenza B PCR NEGATIVE (Negative); Resp Syncy Virus RNA Qual PCR NEGATIVE (Negative); SARS COV2 PCR INHOUSE NEGATIVE (Negative)
[2023-01-24] MEDS: cefTRIAXone sodium 1 GM in 0.9 % Sodium Chloride 50 ML IV (13:04)
[2023-01-24] MEDS: Azithromycin 500 MG in 0.9 % Sodium Chloride 250 ML 125 MG IV (13:10)
--- NOTE | 2023-01-24 13:25 | PM.IMHP ---
History of Present Illness Date of Service: 01/24/23 Attending physician on admission: Tomi Mccain Chief Complaint: sob, productive cough 82 year old female with history of pulmonary embolism compliant with xarelto, aortic stenosis, hld, htn, MR, chronic low back pain, and venous insufficiency presents to the ED for evaluation of malaise, weakness, chest congestion, sore throat, cough with yellow sputum production, headache, and chills ongoing for 6 days and worsening. There has been shortness of breath more recently. No fevers reported. No known sick contacts. No abd pain, n/v/d, lightheadedness, palpitations, or chest pain. She has been noted to slightly choke occasionally when eating and drinking. No recent illness or hospitalization. On arrival, pt hypoxic to 79% improved to 89% on NC and was transitioned to high flow O2 at 50%, initially tachypneic to 22 and tachycardic to 106 which have imrpoved. Patient now breathing comfortably and denies distress. There is a mild leukocytosis of 12.0, no bandemia. Renal function and electrolytes normal except for mild hyponatremia 134. Hepatic panel normal. Negative for COVID-19, influenza, RSV. CXR showing patchy left greater than right bibasilar airspace opacities which may reflect infection or aspiration. In the ED, given 1g IV ceftriaxone and 500mg IV azithromycin. Review of Systems Review of Systems: General: +generalized weakness, +chills, +malaise. No fevers, unintentional weight loss HEENT: +sore throat No nasal congestion, rhinorrhea, sinus pain, ear pain Cardiovascular: No chest pain, palpitations, or leg edema Respiratory: +cough. No shortness of breath, wheezing GI: No abdominal pain, nausea, vomiting, diarrhea, constipation, melena, hematochezia : No dysuria, hematuria, increased urinary frequency, decreased urinary output MSK: No myalgia, back pain Neuro: +headache. No focal weakness, paresthesias Skin: No rashes or lesions [facility] Medical History Aortic stenosis Dyspepsia Hypertension Lumbar pain Mitral regurgitation Pulmonary emboli Pure hypercholesterolemia Venous (peripheral) insufficiency Family History Father Stroke Mother Stroke Surgical History History of abdominoplasty History of tubal ligation Hx of cardiac cath Social History Housing: Apartment Alcohol intake: never Patient Tobacco Use Status: Never used Tobacco e-Cigarette/Vaping Use: Never Used Second Hand Smoke Exposure: No Use of substances other than those prescribed or required for medical reasons: No Advance Directives: No Advance Directives Information Provided: Yes service: No Current occupational status: disabled Cognitive needs: No Hearing needs: No Vision needs: No Meds Allergies Allergy/AdvReac Type Severity Reaction Status Date / Time No Known Allergies Allergy Verified 01/24/23 11:35 Active Medications: Current Medications Azithromycin 500 mg/ Sodium (Chloride) 250 mls @ 125 mls/hr IV ONCE ONE Stop: 01/24/23 14:19 Last Admin: 01/24/23 13:10 Dose: 125 mls/hr Pharmacy Consult (Consult Rx Perform Med Rec) 1 each MISCELLANE ONCE PRN PRN Reason: Consult order Home Medications Medication Instructions Recorded Confirmed Last Taken Type cholecalciferol (vitamin D3) 25 25 mcg PO DAILY 01/22/22 12/29/22 Unknown History mcg (1,000 unit) capsule omega 2-oyg-wgz-fish oil 300 1 cap PO DAILY 01/22/22 12/29/22 Unknown History mg-1,000 mg capsule (Fish Oil) Physical Exam Vital Signs and Narrative: Vital Signs: Last Vital Signs Temp 99 F 01/24/23 11:36 Pulse 96 01/24/23 12:18 Resp 18 01/24/23 12:18 BP 132/69 01/24/23 12:00 Pulse Ox 91 L 01/24/23 13:15 O2 Del Method High Flow Nasal C annula 01/24/23 13:15 O2 Flow Rate 9 01/24/23 12:00 Oxygen Flow Rate 8 01/24/23 13:15 BMI result Body Mass Index 32.6 Constitutional - Awake and Alert, No apparent distress Eyes - PERRLA, EOMI Cardiovascular - S1S2, RRR, No edema Respiratory - Normal lung expansion, Normal respiratory effort, No respiratory distress, rhonchi bilaterally no wheezes or rales Gastrointestinal - NT / ND; +BS; No rebound or guarding Extremities - no calf tenderness bilaterally, no swelling Skin - Warm/Dry Neurological - Alert & oriented x3, 5/5 strength BUE and BLE Psychological - Appropriate affect Results Labs 01/24/23 12:13 01/24/23 12:13 Labs: Laboratory Results - last 24 hr 01/24/23 01/24/23 01/24/23 12:13 12:13 12:13 MCV 91.2 MCH 30.6 MCHC 33.5 RDW 12.8 Plt Count 277 MPV 9.5 Immature Gran % (Auto) 0.2 Neut % (Auto) 74.8 H Lymph % (Auto) 12.3 L [place] % (Auto) 11.5 H Eos % (Auto) 0.7 Baso % (Auto) 0.5 Lymph # (Auto) 1.5 [place] # (Auto) 1.4 H Eos # (Auto) 0.1 Baso # (Auto) 0.1 Abs Immat Gran (auto) 0.03 Absolute Neuts (auto) 9.0 H Absolute Nucleated RBC 0.000 Nucleated RBC % (auto) 0.0 PT 13.7 H INR 1.2 H APTT 29.2 Anion Gap 15 Estim Creat Clear Calc 65.3 Estimated GFR > 60 Random Glucose 114 Lactic Acid Calcium 9.5 Total Bilirubin 0.8 AST 14 ALT 11 Alkaline Phosphatase 102 Troponin I High Sens B-Natriuretic Peptide Total Protein 8.1 H Albumin 4.0 Influenza Type A (PCR) Influenza Type B (PCR) RSV RNA Qual (PCR) SARS-CoV-2 RNA (RT-PCR) 01/24/23 01/24/23 01/24/23 12:13 12:13 12:13 MCV MCH MCHC RDW Plt Count MPV Immature Gran % (Auto) Neut % (Auto) Lymph % (Auto) [place] % (Auto) Eos % (Auto) Baso % (Auto) Lymph # (Auto) [place] # (Auto) Eos # (Auto) Baso # (Auto) Abs Immat Gran (auto) Absolute Neuts (auto) Absolute Nucleated RBC Nucleated RBC % (auto) PT INR APTT Anion Gap Estim Creat Clear Calc Estimated GFR Random Glucose Lactic Acid 1.2 Calcium Total Bilirubin AST ALT Alkaline Phosphatase Troponin I High Sens 4.7 B-Natriuretic Peptide 44 Total Protein Albumin Influenza Type A (PCR) Influenza Type B (PCR) RSV RNA Qual (PCR) SARS-CoV-2 RNA (RT-PCR) 01/24/23 12:14 MCV MCH MCHC RDW Plt Count MPV Immature Gran % (Auto) Neut % (Auto) Lymph % (Auto) [place] % (Auto) Eos % (Auto) Baso % (Auto) Lymph # (Auto) [place] # (Auto) Eos # (Auto) Baso # (Auto) Abs Immat Gran (auto) Absolute Neuts (auto) Absolute Nucleated RBC Nucleated RBC % (auto) PT INR APTT Anion Gap Estim Creat Clear Calc Estimated GFR Random Glucose Lactic Acid Calcium Total Bilirubin AST ALT Alkaline Phosphatase Troponin I High Sens B-Natriuretic Peptide Total Protein Albumin Influenza Type A (PCR) NEGATIVE Influenza Type B (PCR) NEGATIVE RSV RNA Qual (PCR) NEGATIVE SARS-CoV-2 RNA (RT-PCR) NEGATIVE Imaging Radiologist's Impressions: Impressions Chest X-Ray 01/24/23 11:49 IMPRESSION: 1. Patchy left greater than right bibasilar airspace opacities which may reflect infection or aspiration. 2. Possible trace bilateral pleural effusions. Assessment and Plan (1) Acute respiratory failure with hypoxia: Status: Acute (2) Aspiration pneumonia: Status: Acute Plan 82 year old female with history of pulmonary embolism on xarelto, aortic stenosis, hld, htn, MR, chronic low back pain, and venous insufficiency admitted for acute hypoxemic respiratory failure due to pneumonia. #Acute hypoxemic respiratory failure due to bilateral lower lobe pneumonia with question aspiration -Leukocytosis 12. Afebrile. Tachypena due to hypoxia. Not sepsis -CXR showing bilateral patchy opacities L>R with right bibasilar opacities which may reflect infection or aspiration. Patient's daughters do report occassional choking with liquid and food -Suspicious for aspiration. Arnulfo treat with unasyn 3g q6h (initiated 01/24) -NPO for now pending [employer] eval -Methylprednisolone 40mg BID IV to treat associated penumonitis -Albuterol prn -Continue high flow O2 to maintain oximetry >92%, titrate as appropriate -Sputum culture, legionella ag, and strep pneumo ag pending -Symptomatic management #Pulmonary embolism -Has been complant with xarelto. Low suspicion for worsening PE resulting in hypoxia given stable VS and lack of symtpoms -continue xarelto #HTN- reasonably controlled -continue home meds #HLD -continue statin DVT prophylaxis- on xarelto Full code Pt requires inpt stay at least 2 midnights for management of acute hypoxia 2/2 pneumonia requiring IV abs, high flow O2 with titration, and close monitoring. Time Spent With Patient Time: Total time managing care of this patient today ____ minutes. Quality Stroke Does the patient have a stroke diagnosis?: No VTE Prior VTE?: Yes VTE Risk Level:: Medical - moderate - high VTE Device Contraindication: Treatment Not Indicated VTE Drug Contraindication: N/A - Med Ordered
--- NOTE | 2023-01-24 13:38 | PC.NURSE ---
pt comes to the ed with c/o sob/productive cough (yellow phlegm), chest congestion, generalized weakness, all started around 6 days ago. expiratory wheezing and rhonchi present. pt has hx of PE and is on Xarelto. RT at bedside, pt placed on 50L High Flow satting 96-98%. labs drawn, 20g iv inserted LAC. meds given as ordered. daughter at bedside.
[2023-01-24 13:58] LABS: Procalcitonin 0.02 ng/mL
--- NOTE | 2023-01-24 14:34 | PHA.MEDREC ---
Pharmacy Consult ? Medication Reconciliation Pharmacy has completed the medication reconciliation. Patient is on xarelto. She has an rx on hold at [facility], but is using her supply from [facility]. She also states that she stopped the flovent but has not picked up QVAR yet. [place]
--- NOTE | 2023-01-24 15:27 | MHC.SL.SWA ---
Speech Pathologist Impression: Risk of aspiration Risk of Aspiration Due to: Weak Cough HFNC Dysphasia Diet Status: No change Liquid Consistency and Strategies for Safe Swallow: Liquid Intake Recommendation: NPO Solid Food Consistency: Dietary Recommendations: NPO Oral Medication Intake: NPO Please contact the pharmacy regarding appropriate crushable or liquid drug formulations that are available whenever modified delivery is recommended. Recommendation for Speech: Further Testing Needed Comment: Pt and family reporting globus sensation in throat, difficulty managing secretions, and episodes of choking (<1x/month). No PO trials given to pt on this date d/t respiratory status (desatting to mid 80s during TOOL AND DIE MAKER/DESIGNER visit), weak cough, and absent swallow on command. Discussed w/ RN in ED. PA, RD, and RN notified via [employer]. TOOL AND DIE MAKER/DESIGNER to re-assess tomorrow. Manager Aerospace Clinican/Clinical Fellow: No Supervisory Statement: I have reviewed and agree with the student/clinical fellow's documentation: No Speech Language Pathologist: Gali Orr M.A., TOOL AND DIE MAKER/DESIGNER
[2023-01-24] MEDS: Albuterol/Iprat 2.5/0.5MG 3 ML AMPUL.NEB INHALE (15:59)
[2023-01-24] MEDS: Ampicillin Sodium/Sulbactam Na 3 GM in 0.9 % Sodium Chloride 100 ML IV ×2 (16:48→22:26)
--- NOTE | 2023-01-24 17:13 | PC.NURSE ---
RN to RN report given Hema. pt aware of plan to transfer to room 445. daughter at bedside.
--- NOTE | 2023-01-24 17:30 | PC.NURSE ---
pt transferred to 445 by transporter and Respiratory Therapist. pt switched to Non-rebreather for transfer.
[2023-01-24] MEDS: Rivaroxaban 20 MG TABLET PO (17:56)
[2023-01-24] MEDS: Albuterol Sulfate (0.083%) 2.5 MG/3 ML VIAL.NEB INHALE (18:43)
[2023-01-24] MEDS: Atorvastatin Calcium 10 MG TABLET PO (22:28)
[2023-01-24] MEDS: 0.9 % Sodium Chloride Flush 3 ML SYRINGE IVFLUSH (22:29)
[2023-01-24] MEDS: Acetaminophen 325 MG TABLET 650 MG PO (22:39)
[2023-01-25] VITALS (11 sets, daily range): BP systolic 120–143; BP diastolic 54–73; PULSE 78–108; RESP 16–22; TEMP 36.3–37.2; O2SAT 90–96
[2023-01-25] MEDS: Ampicillin Sodium/Sulbactam Na 3 GM in 0.9 % Sodium Chloride 100 ML IV ×3 (04:47→18:45)
[2023-01-25 06:27] LABS: Basophils Percent Auto 0.3 % (0-2); Hematocrit 37.7 % (37.0-47.0); Hemoglobin 12.3 g/dl (12.0-16.0); Imm Gran Abs Auto 0.07 X10*3/uL (0.00-0.03); Imm Gran Pct Auto 0.5 % (0.0-0.4); Lymphocytes Absolute Auto 0.7 X10*3/uL (1.2-4.9); MANUAL DIFF FLAG SCAN; Mean Corpuscular HGB Conc 32.6 g/dl (31.0-35.0); Mean Corpuscular Hemoglobin 30.1 pg (27.0-33.0); Mean Corpuscular Volume 92.2 fL (80.0-98.0); Mean Platelet Volume 9.8 fL (9.4-12.3); Monocytes Absolute Auto 0.2 X10*3/uL (0.1-1.2); Monocytes Percent Auto 1.4 % (2-11); Neutrophils Absolute Auto 13.5 x10*3/uL (2.0-8.3); Neutrophils Percent Auto 92.8 % (45-73); Platelet Count 282 X10*3/uL (160-400); Red Blood Count 4.09 X10*6/uL (4.20-5.50); Red Cell Distribution Width 12.8 % (11.0-16.0); SCAN SMEAR FLAG 1; White Blood Count 14.5 X10*3/uL (4.8-10.8)
[2023-01-25 06:54] LABS: Anion Gap 14 (12-20); Blood Urea Nitrogen 18 mg/dL (9-16); Calcium 9.2 mg/dL (8.4-10.2); Carbon Dioxide 25 mmol/L (22-29); Chloride 103 mmol/L (96-108); Creatinine Clr Calc Pharmacy 62.6; Estimated Glomerular Filt Rate > 60; Glucose Random 183 mg/dL (60-115); Potassium 4.7 mmol/L (3.3-5.1); Sodium 137 mmol/L (135-145)
[2023-01-25 07:04] LABS: SLIDE REVIEW VERIFIED
[2023-01-25] MEDS: Albuterol/Iprat 2.5/0.5MG 3 ML AMPUL.NEB INHALE ×4 (07:33→19:55)
--- NOTE | 2023-01-25 09:03 | MHC.CM.PN ---
CM MET WITH PT WITH [facility] [employer] PT REPORTS SHE LIVES WITH HER AND IS INDEPENDENT WITH CARE SHE DENIES HAVING SERVICES HOWEVER REPORTS SHE DOES HAVE A NURSE THROUGH HER INSURANCE COMPANY SHE CAN CALL PRN PT DOES NOT USE DME SHE DOES NOT THINK SHE HAS A HCP BUT WOULD LIKE TO DISCUSS IT WITH HER FAMILY BEFORE COMPLETING ONE PCP: SHEYLA ADEN IMM DELIVERED CURRENT DCP: HOME NO SERVICES TO TRANSPORT
[2023-01-25] MEDS: methylPREDNISolone Sod Succ 40 MG/ML VIAL IVPUSH ×2 (10:46→18:45)
[2023-01-25] MEDS: 0.9 % Sodium Chloride Flush 3 ML SYRINGE IVFLUSH ×3 (10:46→23:58)
[2023-01-25] MEDS: lisinopriL 40 MG TABLET PO (10:56)
[2023-01-25] MEDS: Cholecalciferol (Vitamin D3) 25 MCG TABLET PO (10:56)
[2023-01-25] MEDS: amLODIPine Besylate 5 MG TABLET PO (10:56)
[2023-01-25 12:02] LABS: ABG Base Excess 3.6 mmol/L; ABG HCO3 28 mmol/L (22-26); ABG pCO2 45 mmHg (32-45); ABG pO2 86 mmHg (83-108)
--- NOTE | 2023-01-25 12:11 | MHC.SL.SWA ---
Risk of Aspiration Due to: Weak Cough Dysphasia Diet Status: DOWNGRADE solids Liquid Consistency and Strategies for Safe Swallow: Liquid Intake Recommendation: Thin Liquid Intake Strategies: Small Sips No Straws Solid Food Consistency: Dietary Recommendations: Chopped/Advanced (NDD3) Additional Modifications to Solid Foods: Moisten w/ sauce/gravy Oral Medication Intake: NPO Please contact the pharmacy regarding appropriate crushable or liquid drug formulations that are available whenever modified delivery is recommended. Compensatory Strategies and Precautions to be Taken for Safe Swallow: Sitting Upright (90 deg) No Straw Small Bites and Sips Alternate Liquids/Solids Rate of Ingestion Change Avoid Specific Foods Supervision While Eating and Drinking for Safe Swallow: Intermittent Supervision Foods to Avoid: Avoid tough, sticky, hard to chew foods Swallowing Recommended Treatments: Recommendation for Speech: Inpatient speech therapy Recommend DOWNGRADE to CHOPPED/ADVANCED solids. Continue with thin liquids. Per RN, pt tolerating pills whole w/ liquid. Aspiration precautions apply. Pt at risk of aspiration on HFNC. Diet updated on pt's white board and in Expanse. MD, RN, RD notified via [employer]. Bonding Machine Tender Clinican/Clinical Fellow: No Supervisory Statement: I have reviewed and agree with the student/clinical fellow's documentation: No Speech Language Pathologist: Gali Orr M.A., COAL GETTER
--- NOTE | 2023-01-25 13:17 | PM.CNPUL ---
History of Present Illness History of Present Illness Consult date: 01/25/23 Reason for consult: dyspnea Chief complaint: aspiration pneumonia hypoxia Narrative: This is an inpatient pulmonary consultation. The patient is an 82 year old female with history of pulmonary embolism compliant with xarelto, aortic stenosis, hld, htn, MR, chronic low back pain, and venous insufficiency presents to the ED for evaluation of malaise, weakness, chest congestion, sore throat, cough with yellow sputum production, headache, and chills ongoing for 6 days and worsening. There has been shortness of breath more recently. No fevers reported. No known sick contacts. No abd pain, n/v/d, lightheadedness, palpitations, or chest pain. She has been noted to slightly choke occasionally when eating and drinking. No recent illness or hospitalization. On arrival, pt hypoxic to 79% improved to 89% on NC and was transitioned to high flow O2 at 50%, initially tachypneic to 22 and tachycardic to 106 which have imrpoved. Patient now breathing comfortably and denies distress. There is a mild leukocytosis of 12.0, no bandemia. Renal function and electrolytes normal except for mild hyponatremia 134. Hepatic panel normal. Negative for COVID-19, influenza, RSV. CXR showing patchy left greater than right bibasilar airspace opacities which may reflect infection or aspiration. In the ED, given 1g IV ceftriaxone and 500mg IV azithromycin. The patient was admitted to the intermediate medical care unit on high-flow 50% and 35 L maintaining a pulse ox in the low 90s. Denies any pleuritic discomfort. On further questioning the patient states that 2 months ago she was evaluated in a hospital in [place] for worsening respiratory symptoms. She was told per the patient's report that she has recurrent blood clots and some of them appear to be chronic. Therefore she was placed back on Xarelto. She has been on it for a couple months now. She also has some leg swelling. Review of Systems Review of Systems: General: +generalized weakness, +chills, +malaise. No fevers, unintentional weight loss HEENT: +sore throat No nasal congestion, rhinorrhea, sinus pain, ear pain Cardiovascular: No chest pain, palpitations, or leg edema Respiratory: +cough. No shortness of breath, wheezing GI: No abdominal pain, nausea, vomiting, diarrhea, constipation, melena, hematochezia : No dysuria, hematuria, increased urinary frequency, decreased urinary output MSK: No myalgia, back pain Neuro: +headache. No focal weakness, paresthesias Skin: No rashes or lesions Neurologic: Denies Abnormal speech present FOR[facility]LY [facility], [facility] Past Medical History Medical History Aortic stenosis Dyspepsia Hypertension Lumbar pain Mitral regurgitation Pulmonary emboli Pure hypercholesterolemia Venous (peripheral) insufficiency Family History Family History Father Stroke Mother Stroke Surgical History Surgical History History of abdominoplasty History of tubal ligation Hx of cardiac cath Social History Social History Household Members: Spouse Housing: House Do you presently have visiting nurse or other home services: No Alcohol intake: never Patient Tobacco Use Status: Never used Tobacco e-Cigarette/Vaping Use: Never Used Second Hand Smoke Exposure: No service: No Current occupational status: retired and disabled Cognitive needs: No Hearing needs: No Vision needs: No Meds Allergies Allergy/AdvReac Type Severity Reaction Status Date / Time No Known Allergies Allergy Verified 01/24/23 11:35 Active Medications: Current Medications Acetaminophen (Acetaminophen 325 Mg Tablet) 650 mg PO Q6H PRN PRN Reason: Pain, Mild (Pain Scale 1-3) Last Admin: 01/24/23 22:39 Dose: 650 mg Albuterol Sulfate (Albuterol Sulfate (0.083%) 2.5 Mg/3 Ml Vial.Neb) 2.5 mg INHALE Q4H PRN PRN Reason: Shortness of Breath/Wheezing Last Admin: 01/24/23 18:43 Dose: 2.5 mg Albuterol/Ipratropium (Albuterol/Iprat 2.5/0.5mg 3 Ml Ampul.Neb) 3 ml INHALE RQ4H WHILE AWAKE [facility] Last Admin: 01/25/23 11:12 Dose: 3 ml Amlodipine Besylate (Amlodipine Besylate 5 Mg Tablet) 5 mg PO DAILY [facility]; Protocol Last Admin: 01/25/23 10:56 Dose: 5 mg Atorvastatin Calcium (Atorvastatin Calcium 10 Mg Tablet) 10 mg PO BEDTIME [facility] Last Admin: 01/24/23 22:28 Dose: 10 mg Docusate Sodium (Docusate Sodium 100 Mg Capsule) 100 mg PO DAILY PRN PRN Reason: Constipation Ampicillin Sodium/Sulbactam (Sodium 3 gm/ Sodium Chloride) 100 mls @ 200 mls/hr IV Q6H [facility] Last Infusion: 01/25/23 12:17 Dose: Infused Doxycycline Hyclate 100 mg/ (Sodium Chloride) 250 mls @ 166.67 mls/hr IV BID [facility] Lisinopril (Lisinopril 40 Mg Tablet) 40 mg PO DAILY [facility]; Protocol Last Admin: 01/25/23 10:56 Dose: 40 mg Methylprednisolone Sodium Succinate (Methylprednisolone Sod Succ 40 Mg/Ml Vial) 40 mg IVPUSH Q12H [facility] Last Admin: 01/25/23 10:46 Dose: 40 mg Ondansetron HCl (Ondansetron Hcl 4 Mg/2 Ml Vial) 4 mg IVPUSH Q8H PRN PRN Reason: Nausea and Vomiting Pharmacy Consult (Consult Rx Perform Med Rec) 1 each MISCELLANE ONCE PRN PRN Reason: Consult order Rivaroxaban (Rivaroxaban 20 Mg Tablet) 20 mg PO DAILY@1730 [facility] Last Admin: 01/24/23 17:56 Dose: 20 mg Sodium Chloride (0.9 % Sodium Chloride Flush 3 Ml Syringe) 3 ml IVFLUSH QSHIFT [facility] Last Admin: 01/25/23 10:46 Dose: 3 ml Vitamin D (Cholecalciferol (Vitamin D3) 25 Mcg Tablet) 25 mcg PO DAILY [facility] Last Admin: 01/25/23 10:56 Dose: 25 mcg Home Medications Medication Instructions Recorded Confirmed Last Taken Type cholecalciferol (vitamin D3) 25 25 mcg PO DAILY 01/22/22 01/24/23 01/23/23 History mcg (1,000 unit) capsule omega 3-mgs-vvh-fish oil 300 1 cap PO DAILY 01/22/22 01/24/23 01/23/23 History mg-1,000 mg capsule (Fish Oil) atorvastatin 10 mg tablet 10 mg PO BEDTIME 01/24/23 01/24/23 01/23/23 History rivaroxaban 20 mg tablet 20 mg PO DAILY@1700 01/24/23 01/24/2301/23/23 History tiotropium 2.5 mcg-olodaterol 2.5 2 puff inhalation DAILY 01/24/23 01/24/23 01/23/23 History mcg/actuation mist for inhalation (Stiolto Respimat) Physical Exam Vital Signs: Vital Signs: Last Vital Signs Temp 99.0 F 01/25/23 11:24 Pulse 94 01/25/23 11:24 Resp 22 H 01/25/23 11:37 BP 136/60 01/25/23 11:24 Pulse Ox 91 L 01/25/23 11:24 O2 Del Method High Flow Nasal C annula 01/25/23 11:24 O2 Flow Rate 40 01/25/23 03:08 FiO2 50 01/25/23 03:08 Oxygen Flow Rate 8 01/24/23 13:15 BMI result Body Mass Index 32.6 Const: General: cooperative, comfortable, alert and awake Orientation/consciousness: patient oriented x3 HEENT: Head: Yes normocephalic and Yes atraumatic Neck: Neck: Yes trachea midline and Yes supple Chest: Chest palpation & inspection: normal inspection of the chest Resp: Effort & Inspection: normal respiratory effort Auscultation: crackles Cardio: Heart sounds: S1 normal heart sound present, S2 normal heart sound present and Murmur heart sound present systolic GI: Auscultation: normal bowel sounds Skin: General skin exam: no rashes or lesions noted Neuro: General: patient oriented x3 and no focal motor deficits Speech: No Abnormal speech present Extrem: General: Yes no clubbing, cyanosis or edema Psych: Appearance: grossly normal Results Laboratory Findings 01/25/23 05:53 01/25/23 05:53 ABG, PT/INR, D-dimer: PT/INR, D-dimer PT 13.7 SEC (10.0-13.1) H 01/24/23 12:13 INR 1.2 (0.9-1.1) H 01/24/23 12:13 Abnormal lab findings: Abnormal Labs 01/24/23 01/24/23 01/24/23 12:13 12:13 12:13 WBC 12.0 H RBC Immature Gran % (Auto) Neut % (Auto) 74.8 H Lymph % (Auto) 12.3 L [place] % (Auto) 11.5 H Lymph # (Auto) [place] # (Auto) 1.4 H Abs Immat Gran (auto) Absolute Neuts (auto) 9.0 H PT 13.7 H INR 1.2 H ABG HCO3 Sodium 134 L BUN Random Glucose Total Protein 8.1 H 01/25/23 01/25/23 01/25/23 05:53 05:53 11:53 WBC 14.5 H RBC 4.09 L Immature Gran % (Auto) 0.5 H Neut % (Auto) 92.8 H Lymph % (Auto) 5.0 L [place] % (Auto) 1.4 L Lymph # (Auto) 0.7 L [place] # (Auto) Abs Immat Gran (auto) 0.07 H Absolute Neuts (auto) 13.5 H PT INR ABG HCO3 28 H Sodium BUN 18 H Random Glucose 183 H Total Protein Microbiology: Microbiology 01/24/23 16:34 Sputum - Expectorated Gram Stain - Final 01/24/23 16:34 Sputum - Expectorated Sputum Culture - Final Assessment and Plan (1) Acute respiratory failure with hypoxia: Status: Acute (2) Pulmonary emboli: Status: Acute (3) CAP (community acquired pneumonia): Status: Acute Plan continue Unasyn Add Doxyxycline CTA r/o chronic thrombo-embolic disease Bloodwork respiratory viral panel continue HF to keep pox>90% Guarded/Full code Time Spent With Patient Time: Total time managing care of this patient today ____ minutes. Procedures Date of Service Date of Service: 01/25/23
[2023-01-25 15:13] LABS: Erythrocyte Sedimentation Rate 42 MM/HR (0-20)
[2023-01-25] MEDS: iohexoL 350 MG/ML 100 ML INFUS..BTL IV (16:28)
--- NOTE | 2023-01-25 16:54 | HO.PM.IMPN ---
Subjective Subjective Date of Service: 01/26/23 Interval History: Feeling better complaining of less shortness of breath and cough, remained hypoxic on high-flow oxygen, denies fever, no chills, no nausea, no vomiting , seen by speech therapy downgraded to chopped advanced diet continued on thin liquids, no other acute issues overnight denies urinary symptoms of urgency frequency, no musculoskeletal discomfort. Review of Systems All other systems reviewed and negative. Physical Exam Vital Signs: Vital Signs: Last Vital Signs Temp 97.8 F 01/25/23 15:36 Pulse 99 01/25/23 15:36 Resp 18 01/25/23 15:36 BP 120/54 L 01/25/23 15:36 Pulse Ox 93 01/25/23 15:36 O2 Del Method High Flow Nasal C annula 01/25/23 15:36 O2 Flow Rate 35 01/25/23 15:36 FiO2 50 01/25/23 15:36 Oxygen Flow Rate 8 01/24/23 13:15 BMI result Body Mass Index 32.6 Const: Other: General awake alert x3, resting comfortably in no acute distress. Neck ,supple no JVD. CVS regular rate rhythm, Respiratory lungs bilateral diffuse rhonchi, no respiratory distress Gastrointestinal abdomen soft, nontender, bowel sounds audible, no guarding , no rigidity. Extremities no edema. Neuro nonfocal Skin no rash Psych appropriate affect Objective Data Active Medications Acetaminophen (Acetaminophen 325 Mg Tablet) 650 mg PO Q6H PRN PRN Reason: Pain, Mild (Pain Scale 1-3) Last Admin: 01/24/23 22:39 Dose: 650 mg Documented By: MADDY Albuterol Sulfate (Albuterol Sulfate (0.083%) 2.5 Mg/3 Ml Vial.Neb) 2.5 mg INHALE Q4H PRN PRN Reason: Shortness of Breath/Wheezing Last Admin: 01/24/23 18:43 Dose: 2.5 mg Documented By: NAVJOT Albuterol/Ipratropium (Albuterol/Iprat 2.5/0.5mg 3 Ml Ampul.Neb) 3 ml INHALE RQ4H WHILE AWAKE [facility] Last Admin: 01/25/23 15:02 Dose: 3 ml Documented By: JUVE Amlodipine Besylate (Amlodipine Besylate 5 Mg Tablet) 5 mg PO DAILY [facility]; Protocol Last Admin: 01/25/23 10:56 Dose: 5 mg Documented By: HUGH Atorvastatin Calcium (Atorvastatin Calcium 10 Mg Tablet) 10 mg PO BEDTIME [facility] Last Admin: 01/24/23 22:28 Dose: 10 mg Documented By: MADDY Docusate Sodium (Docusate Sodium 100 Mg Capsule) 100 mg PO DAILY PRN PRN Reason: Constipation Ampicillin Sodium/Sulbactam (Sodium 3 gm/ Sodium Chloride) 100 mls @ 200 mls/hr IV Q6H [facility] Last Infusion: 01/25/23 12:17 Dose: 0 mls/hr Documented By: HUGH Doxycycline Hyclate 100 mg/ (Sodium Chloride) 250 mls @ 166.67 mls/hr IV BID [facility] Lisinopril (Lisinopril 40 Mg Tablet) 40 mg PO DAILY [facility]; Protocol Last Admin: 01/25/23 10:56 Dose: 40 mg Documented By: HUGH Methylprednisolone Sodium Succinate (Methylprednisolone Sod Succ 40 Mg/Ml Vial) 40 mg IVPUSH Q12H [facility] Last Admin: 01/25/23 10:46 Dose: 40 mg Documented By: HUGH Ondansetron HCl (Ondansetron Hcl 4 Mg/2 Ml Vial) 4 mg IVPUSH Q8H PRN PRN Reason: Nausea and Vomiting Pharmacy Consult (Consult Rx Perform Med Rec) 1 each MISCELLANE ONCE PRN PRN Reason: Consult order Rivaroxaban (Rivaroxaban 20 Mg Tablet) 20 mg PO DAILY@1730 [facility] Last Admin: 01/24/23 17:56 Dose: 20 mg Documented By: HUGH Sodium Chloride (0.9 % Sodium Chloride Flush 3 Ml Syringe) 3 ml IVFLUSH QSHIFT [facility] Last Admin: 01/25/23 10:46 Dose: 3 ml Documented By: HUGH Vitamin D (Cholecalciferol (Vitamin D3) 25 Mcg Tablet) 25 mcg PO DAILY [facility] Last Admin: 01/25/23 10:56 Dose: 25 mcg Documented By: HUGH Labs 01/25/23 05:53 01/25/23 05:53 Labs: Laboratory Results - last 24 hr 01/25/23 01/25/23 01/25/23 05:53 05:53 11:53 MCV 92.2 MCH 30.1 MCHC 32.6 RDW 12.8 Plt Count 282 MPV 9.8 Immature Gran % (Auto) 0.5 H Neut % (Auto) 92.8 H Lymph % (Auto) 5.0 L [place] % (Auto) 1.4 L Eos % (Auto) 0.0 Baso % (Auto) 0.3 Lymph # (Auto) 0.7 L [place] # (Auto) 0.2 Eos # (Auto) 0.0 Baso # (Auto) 0.0 Abs Immat Gran (auto) 0.07 H Absolute Neuts (auto) 13.5 H Absolute Nucleated RBC 0.000 Nucleated RBC % (auto) 0.0 Smear Tech's Comments VERIFIED ESR O2 Saturation 97.0 ABG pH at Pt Temp 7.40 ABG pCO2 at Pt Temp 45 ABG pO2 at Pt Temp 86 ABG HCO3 28 H ABG Base Excess (Actual) 3.6 Anion Gap 14 Estim Creat Clear Calc 62.6 Estimated GFR > 60 Random Glucose 183 H Calcium 9.2 01/25/23 13:52 MCV MCH MCHC RDW Plt Count MPV Immature Gran % (Auto) Neut % (Auto) Lymph % (Auto) [place] % (Auto) Eos % (Auto) Baso % (Auto) Lymph # (Auto) [place] # (Auto) Eos # (Auto) Baso # (Auto) Abs Immat Gran (auto) Absolute Neuts (auto) Absolute Nucleated RBC Nucleated RBC % (auto) Smear Tech's Comments ESR 42 H O2 Saturation ABG pH at Pt Temp ABG pCO2 at Pt Temp ABG pO2 at Pt Temp ABG HCO3 ABG Base Excess (Actual) Anion Gap Estim Creat Clear Calc Estimated GFR Random Glucose Calcium Microbiology Microbiology Results: Microbiology 01/24/23 12:52 Blood Culture - Preliminary Blood - Venous No growth after 24 hours. 01/24/23 12:13 Blood Culture - Preliminary Blood - Venous No growth after 24 hours. 01/24/23 16:34 Gram Stain - Final Sputum - Expectorated Sputum Culture - Final Assessment and Plan (1) Acute respiratory failure with hypoxia: Status: Acute (2) Pulmonary emboli: Status: Acute (3) CAP (community acquired pneumonia): Status: Acute Plan 82 year old female with history of pulmonary embolism on xarelto, aortic stenosis, hld, htn, MR, chronic low back pain, and venous insufficiency admitted for acute hypoxemic respiratory failure due to pneumonia. #Acute hypoxemic respiratory failure due to bilateral lower lobe pneumonia with question aspiration -hypoxia persist no fevers no chills, overall feels better with less shortness of breath -CXR showing bilateral patchy opacities L>R with right bibasilar opacities which may reflect infection or aspiration. -will continue unasyn 3g q6h (initiated 01/24) -Methylprednisolone 40mg BID IV to treat associated penumonitis, scheduled DuoNeb and as needed albuterol -Continue high flow O2 to maintain oximetry >92%, titrate as appropriate -legionella ag, and strep pneumo ag pending Due to persistent symptoms obtain CTA chest that showed atelectasis, small infiltrates and pneumonitis and no evidence of PE -case discussed with Dr. Cote from pulmonology recommended to add doxycycline for atypical coverage Follow clinical course #Pulmonary embolism -Has been compliant with xarelto. Low suspicion for worsening PE resulting in hypoxia given stable VS and lack of symtpoms -continue xarelto #HTN- reasonably controlled -continue home meds #HLD -continue statin DVT prophylaxis- on xarelto Full code Pt, requires continued inpatient stay for management of acute hypoxia 2/2? pneumonia requiring IV abs, high flow O2 with titration, and close monitoring. Time Spent With Patient Time: Total time managing care of this patient today ____ minutes. Quality Stroke Does the patient have a stroke diagnosis?: No VTE Prior VTE?: Yes VTE Risk Level:: Medical - moderate - high VTE Device Contraindication: Treatment Not Indicated VTE Drug Contraindication: N/A - Med Ordered
[2023-01-25] MEDS: Rivaroxaban 20 MG TABLET PO (18:43)
[2023-01-25] MEDS: Doxycycline Hyclate 100 MG in 0.9 % Sodium Chloride 250 ML 166.67 MG IV (19:42)
[2023-01-25] MEDS: Atorvastatin Calcium 10 MG TABLET PO (22:00)
[2023-01-26] VITALS (17 sets, daily range): BP systolic 119–139; BP diastolic 56–91; PULSE 82–118; RESP 18–25; TEMP 36.1–37.7; O2SAT 87–98
--- NOTE | 2023-01-26 | ECG_ITS ---
Test Reason : chest pain Blood Pressure : / mmHG Vent. Rate : 102 BPM Atrial Rate : 102 BPM P-R Int : 146 ms QRS Dur : 088 ms QT Int : 348 ms P-R-T Axes : 062 086 038 degrees QTc Int : 453 ms Sinus tachycardia Otherwise normal ECG When compared with ECG of 24-JAN-2023 11:56, No significant change was found Referred By: Martín Cote Electronically Signed By:JUAN A CLEMENT MD
[2023-01-26] MEDS: Benzonatate 100 MG CAPSULE 200 MG PO ×3 (00:31→20:10)
[2023-01-26] MEDS: Ampicillin Sodium/Sulbactam Na 3 GM in 0.9 % Sodium Chloride 100 ML IV ×2 (03:13→12:57)
[2023-01-26] MEDS: Albuterol/Iprat 2.5/0.5MG 3 ML AMPUL.NEB INHALE ×4 (07:13→19:57)
[2023-01-26] MEDS: amLODIPine Besylate 5 MG TABLET PO (09:13)
[2023-01-26] MEDS: methylPREDNISolone Sod Succ 40 MG/ML VIAL IVPUSH (09:13)
[2023-01-26] MEDS: 0.9 % Sodium Chloride Flush 3 ML SYRINGE IVFLUSH ×2 (09:13→17:33)
[2023-01-26] MEDS: lisinopriL 40 MG TABLET PO (09:13)
[2023-01-26] MEDS: Cholecalciferol (Vitamin D3) 25 MCG TABLET PO (09:13)
[2023-01-26] MEDS: Doxycycline Hyclate 100 MG in 0.9 % Sodium Chloride 250 ML 166.67 MG IV ×2 (09:13→20:10)
--- NOTE | 2023-01-26 09:30 | P.PNPL_ITS ---
Subjective Subjective Date of Service: 01/26/23 Interval history: The patient was seen on the found. Had a difficult time sleeping. Also complain of some left-sided chest discomfort overnight. She no longer has it. She was able to be weaned down on the oxygen by last night she desaturated and had a hard time she was placed on CPAP briefly and then placed back in high- flow. Apparently she was using oxygen at nighttime while she was in [place]. The patient did have a sleep study while she was in [place] which per report the patient was negative for any sleep apnea. I did review her CT scan of the chest that she had here. It appears that she has a dilated pulmonary trunk daly ggesting pulmonary hypertension. No evidence of any residual blood clots. She does have areas of ground-glass opacities and patchy airspace disease suggestive of infectious process. She is getting antibiotics. Less likely aspiration. Respiratory viral panels pending. Objective Data Labs 01/25/23 05:53 01/25/23 05:53 Labs: Laboratory Results - last 24 hr 01/25/23 01/25/23 11:53 13:52 ESR 42 H O2 Saturation 97.0 ABG pH at Pt Temp 7.40 ABG pCO2 at Pt Temp 45 ABG pO2 at Pt Temp 86 ABG HCO3 28 H ABG Base Excess (Actual) 3.6 Microbiology Microbiology Results: Microbiology 01/24/23 12:52 Blood - Venous Blood Culture - Preliminary No growth after 24 hours. 01/24/23 12:13 Blood - Venous Blood Culture - Preliminary No growth after 24 hours. 01/24/23 16:34 Sputum - Expectorated Gram Stain - Final 01/24/23 16:34 Sputum - Expectorated Sputum Culture - Final Review of Systems Review of Systems General: +generalized weakness, +chills, +malaise. No fevers, unintentional weight loss HEENT: +sore throat No nasal congestion, rhinorrhea, sinus pain, ear pain Cardiovascular: No chest pain, palpitations, or leg edema Respiratory: +cough. No shortness of breath, wheezing GI: No abdominal pain, nausea, vomiting, diarrhea, constipation, melena, hematochezia : No dysuria, hematuria, increased urinary frequency, decreased urinary output MSK: No myalgia, back pain Neuro: +headache. No focal weakness, paresthesias Skin: No rashes or lesions Physical Exam Vital Signs: Vital Signs: Last Vital Signs Temp 97.2 F 01/26/23 07:19 Pulse 96 01/26/23 07:19 Resp 20 01/26/23 07:19 BP 119/58 L 01/26/23 07:19 Pulse Ox 87 L 01/26/23 07:19 O2 Del Method Oxymask 01/26/23 07:19 O2 Flow Rate 6 01/25/23 23:57 FiO2 30 01/26/23 07:19 Oxygen Flow Rate 8 01/24/23 13:15 BMI result Body Mass Index 32.6 Const: Other: General awake alert x3, resting comfortably in no acute distress. Neck ,supple no JVD. CVS regular rate rhythm, Respiratory lungs bilateral dimished breath sounds, no respiratory distress Gastrointestinal abdomen soft, nontender, bowel sounds audible, no guarding , no rigidity. Extremities no edema. Neuro nonfocal Skin no rash Psych appropriate affect Procedures Date of Service Date of Service: 01/26/23 Assessment and Plan Assessment and plan (1) Acute respiratory failure with hypoxia: Status: Acute (2) Aspiration pneumonia: Status: Acute (3) CAP (community acquired pneumonia): Status: Acute (4) Pulmonary hypertension: Status: Acute (5) Chest pain: Status: Acute Plan decrease solumedrol lasix x 1 now titrate off High flow. Will likely need oxygen upon discharge continue doxy and unasyn, hopefully can de-escalate abx in 24-48 hours Awaiting viral panel and bloodwork continue xorelto should get EKG and trop I with chest pains from last night. Time Spent With Patient Time: Total time managing care of this patient today ____ minutes. Progress Note: Quality Stroke Does the patient have a stroke diagnosis?: No
[2023-01-26 10:01] LABS: Coronavirus 229E PCR Detected (Not Detect.)
[2023-01-26 10:02] LABS: Adenovirus PCR Not Detected (Not Detect.); Bordetella parapertussis PCR Not Detected (Not Detect.); Bordetella pertussis PCR Not Detected (Not Detect.); Chlamydia pneumoniae PCR Not Detected (Not Detect.); Coronavirus HKU1 PCR Not Detected (Not Detect.); Coronavirus NL63 PCR Not Detected (Not Detect.); Coronavirus OC43 PCR Not Detected (Not Detect.); Human metapneumovirus PCR Not Detected (Not Detect.); Influenza A PCR Not Detected (Not Detect.); Influenza B PCR Not Detected (Not Detect.); Mycoplasma pneumoniae PCR Not Detected (Not Detect.); Parainfluenza 1 PCR Not Detected (Not Detect.); Parainfluenza 2 PCR Not Detected (Not Detect.); Parainfluenza 3 PCR Not Detected (Not Detect.); Parainfluenza 4 PCR Not Detected (Not Detect.); RSV PCR Not Detected (Not Detect.); Rhino/Enterovirus PCR Not Detected (Not Detect.); SARS-CoV-2 PCR Not Detected (Not Detect.)
--- NOTE | 2023-01-26 10:13 | MHC.CM.PN ---
Per ROUNDS discussion, Patient is on high Flow O2 and is not yet medically cleared for dc. Patient may benefit from a PT eval to assist with disposition. CM will follow.
[2023-01-26 10:31] LABS: Troponin-I High Sensitivity < 2.7 ng/L (<3.5-17.0)
[2023-01-26] MEDS: Furosemide 20 MG/2 ML VIAL 10 MG IVPUSH (11:11)
--- NOTE | 2023-01-26 14:04 | PC.RT ---
Pt unable to ketty cpap, will not wear. HFNC continues standby in pts room. Currently 4 lpm n/c being ketty well. RN aware.
--- NOTE | 2023-01-26 15:13 | P.PNIM_ITS ---
Subjective Subjective Date of Service: 01/26/23 Interval History: Events from last night noted patient desaturated and was placed on CPAP briefly subsequently transitioned back to high-flow this morning, patient also had brief episode of left-sided chest pain overnight, denies chest pain this morning, no palpitation, denies nausea ,vomiting, no abdominal pain. Complaining of generalized weakness, chills, sore throat and headache. Review of Systems All other system reviewed and negative Physical Exam Vital Signs: Vital Signs: Last Vital Signs Temp 97.5 F 01/26/23 11:24 Pulse 94 01/26/23 14:59 Resp 18 01/26/23 14:59 BP 130/56 L 01/26/23 11:24 Pulse Ox 89 L 01/26/23 11:24 O2 Del Method Nasal Cannula 01/26/23 11:24 O2 Flow Rate 4 01/26/23 11:24 FiO2 30 01/26/23 07:19 Oxygen Flow Rate 8 01/24/23 13:15 BMI result Body Mass Index 32.6 Const: Other: General awake alert x3, in no acute distress.? Neck ,supple no JVD. CVS? regular rate rhythm, Respiratory lungs bilateral rhonchi, no respiratory distress Gastrointestinal abdomen soft, nontender, bowel sounds audible, no guarding , no rigidity. Extremities no? edema. Neuro non focal Skin no rash Psych appropriate affect Objective Data Active Medications Acetaminophen (Acetaminophen 325 Mg Tablet) 650 mg PO Q6H PRN PRN Reason: Pain, Mild (Pain Scale 1-3) Last Admin: 01/24/23 22:39 Dose: 650 mg Documented By: MADDY Albuterol Sulfate (Albuterol Sulfate (0.083%) 2.5 Mg/3 Ml Vial.Neb) 2.5 mg INHALE Q4H PRN PRN Reason: Shortness of Breath/Wheezing Last Admin: 01/24/23 18:43 Dose: 2.5 mg Documented By: NAVJOT Albuterol/Ipratropium (Albuterol/Iprat 2.5/0.5mg 3 Ml Ampul.Neb) 3 ml INHALE RQ4H WHILE AWAKE [facility] Last Admin: 01/26/23 14:58 Dose: 3 ml Documented By: CHAN Amlodipine Besylate (Amlodipine Besylate 5 Mg Tablet) 5 mg PO DAILY [facility]; Protocol Last Admin: 01/26/23 09:13 Dose: 5 mg Documented By: MADDIE Atorvastatin Calcium (Atorvastatin Calcium 10 Mg Tablet) 10 mg PO BEDTIME [facility] Last Admin: 01/25/23 22:00 Dose: 10 mg Documented By: SAL Benzonatate (Benzonatate 100 Mg Capsule) 200 mg PO TID PRN PRN Reason: Cough Last Admin: 01/26/23 09:13 Dose: 200 mg Documented By: MADDIE Docusate Sodium (Docusate Sodium 100 Mg Capsule) 100 mg PO DAILY PRN PRN Reason: Constipation Doxycycline Hyclate 100 mg/ (Sodium Chloride) 250 mls @ 166.67 mls/hr IV Q12H [facility] Last Infusion: 01/26/23 12:42 Dose: 0 mls/hr Documented By: MADDIE Ampicillin Sodium/Sulbactam (Sodium 3 gm/ Sodium Chloride) 100 mls @ 200 mls/hr IV Q6H [facility] Last Infusion: 01/26/23 13:31 Dose: 0 mls/hr Documented By: MADDIE Lisinopril (Lisinopril 40 Mg Tablet) 40 mg PO DAILY [facility]; Protocol Last Admin: 01/26/23 09:13 Dose: 40 mg Documented By: MADDIE Methylprednisolone Sodium Succinate (Methylprednisolone Sod Succ 40 Mg/Ml Vial) 40 mg IVPUSH DAILY [facility] Ondansetron HCl (Ondansetron Hcl 4 Mg/2 Ml Vial) 4 mg IVPUSH Q8H PRN PRN Reason: Nausea and Vomiting Pharmacy Consult (Consult Rx Perform Med Rec) 1 each MISCELLANE ONCE PRN PRN Reason: Consult order Rivaroxaban (Rivaroxaban 20 Mg Tablet) 20 mg PO DAILY@1730 [facility] Last Admin: 01/25/23 18:43 Dose: 20 mg Documented By: GRZEGORZMARafita Sodium Chloride (0.9 % Sodium Chloride Flush 3 Ml Syringe) 3 ml IVFLUSH QSHIFT [facility] Last Admin: 01/26/23 09:13 Dose: 3 ml Documented By: MADDIE Vitamin D (Cholecalciferol (Vitamin D3) 25 Mcg Tablet) 25 mcg PO DAILY [facility] Last Admin: 01/26/23 09:13 Dose: 25 mcg Documented By: MADDIE Labs 01/25/23 05:53 01/25/23 05:53 Labs: Laboratory Results - last 24 hr 01/25/23 01/25/23 01/26/23 13:52 20:42 09:54 ESR 42 H Troponin I High Sens < 2.7 Respiratory Panel Joy See Note Adenovirus (Rapid PCR) Not Detected B.pert (TEM-PCR) Not Detected B.parapertussis DNA PCR Not Detected C. pneumoniae DNA (PCR) Not Detected Coronavirus OC43 (PCR) Not Detected Coronavirus HKU1 (PCR) Not Detected Coronavirus 229E (PCR) Detected A Coronavirus NL63 (PCR) Not Detected Human Metapneumovir PCR Not Detected Influenza A (RT-PCR) Not Detected Influenza B (RT-PCR) Not Detected M. pneumoniae (PCR) Not Detected Parainfluenza 1 (PCR) Not Detected Parainfluenza 2 (PCR) Not Detected Parainfluenza 3 (PCR) Not Detected Parainfluenza 4 (PCR) Not Detected RSV (PCR) Not Detected Entero/Rhino (PCR) Not Detected SARS-CoV-2 RNA (RT-PCR) Not Detected Microbiology Microbiology Results: Microbiology 01/24/23 12:52 Blood Culture - Preliminary Blood - Venous No growth after 48 hours. 01/24/23 12:13 Blood Culture - Preliminary Blood - Venous No growth after 48 hours. Assessment and Plan (1) Acute respiratory failure with hypoxia: Status: Acute (2) Pulmonary emboli: Status: Acute (3) CAP (community acquired pneumonia): Status: Acute Plan 82 year old female with history of pulmonary embolism on xarelto, aortic stenosis, hld, htn, MR, chronic low back pain, and venous insufficiency admitted for acute hypoxemic respiratory failure due to pneumonia. #Acute hypoxemic respiratory failure due to bilateral lower lobe pneumonia likely due to coronavirus infection Continue high-flow oxygen and gradually wean, required CPAP briefly last night, patient has had sleep study done in [place] and was negative for sleep apnea -CXR showing bilateral patchy opacities L>R with right bibasilar opacities which may reflect infection or aspiration. CTA chest that showed atelectasis, small infiltrates and pneumonitis and no evidence of PE, showed finding suggestive of pulmonary hypertension likely related to PE Viral panel positive for coronavirus so likely viral URI with superadded bacterial infection -will dc unasyn and continue IV doxycycline started 01/25 -on Methylprednisolone 40mg BID IV will decrease to 20 mg IV b.i.d. to treat associated penumonitis, scheduled DuoNeb and as needed albuterol -legionella ag, and strep pneumo ag pending -being followed by pulmonology # brief episode of chest pain last night, EKG showed no acute ischemia, troponin negative #Pulmonary embolism -continue xarelto #HTN- reasonably controlled -continue home meds #HLD -continue statin DVT prophylaxis- on xarelto Full code Pt, requires continued inpatient stay for management of acute hypoxia 2/2? pneumonia requiring IV abs, high flow O2 with titration, and close monitoring. Time Spent With Patient Time: Total time managing care of this patient today ____ minutes. Quality Stroke Does the patient have a stroke diagnosis?: No VTE Prior VTE?: Yes VTE Risk Level:: Medical - moderate - high VTE Device Contraindication: Treatment Not Indicated VTE Drug Contraindication: N/A - Med Ordered
--- NOTE | 2023-01-26 17:00 | MHC.SL.SWA ---
Risk of Aspiration Due to: Weak Cough Dysphasia Diet Status: No change Liquid Consistency and Strategies for Safe Swallow: Liquid Intake Recommendation: Thin Liquid Intake Strategies: Small Sips No Straws Solid Food Consistency: Dietary Recommendations: Chopped/Advanced (NDD3) Additional Modifications to Solid Foods: Moisten w/ sauce/gravy Oral Medication Intake: Whole w/ liquid Please contact the pharmacy regarding appropriate crushable or liquid drug formulations that are available whenever modified delivery is recommended. Compensatory Strategies and Precautions to be Taken for Safe Swallow: Sitting Upright (90 deg) No Straw Small Bites and Sips Alternate Liquids/Solids Rate of Ingestion Change Avoid Specific Foods Supervision While Eating and Drinking for Safe Swallow: Intermittent Supervision Foods to Avoid: Avoid tough, sticky, hard to chew foods Recommendation for Speech: Further Testing Needed Comment: Pt denied any difficulties w/ current diet recommendations. Recommend pt continue with CHOPPED/ADVANCED solids. Continue with thin liquids (NO STRAW). Per RN, pt tolerating pills whole w/ liquid. Continue w/ aspiration precautions. Pt's diet re-written on whiteboard. Claim Manager Clinican/Clinical Fellow: No Supervisory Statement: I have reviewed and agree with the student/clinical fellow's documentation: No Speech Language Pathologist: Gali Orr M.A., HEAD BO[employer] TENNIS COACH
[2023-01-26] MEDS: Rivaroxaban 20 MG TABLET PO (17:33)
--- NOTE | 2023-01-26 18:43 | PC.NURSE ---
RN spoke with Dr Valverde , oxygen saturation goal for this patient is 90-94%
[2023-01-26] MEDS: Atorvastatin Calcium 10 MG TABLET PO (20:10)
[2023-01-27] VITALS (12 sets, daily range): BP systolic 116–140; BP diastolic 57–65; PULSE 72–87; RESP 18–20; TEMP 36–36.8; O2SAT 91–98
--- NOTE | 2023-01-27 00:09 | PC.NURSE ---
oxygen SATURATION down to 82% around 21:00 when patient started to fell asleep , High flow applied by respiratory therapist 60% /30 liters , oxygen saturation up to 95 % now
[2023-01-27] MEDS: 0.9 % Sodium Chloride Flush 3 ML SYRINGE IVFLUSH ×3 (03:22→17:15)
[2023-01-27] MEDS: Benzonatate 100 MG CAPSULE 200 MG PO (03:25)
[2023-01-27] MEDS: Albuterol/Iprat 2.5/0.5MG 3 ML AMPUL.NEB INHALE ×4 (07:42→20:01)
[2023-01-27] MEDS: amLODIPine Besylate 5 MG TABLET PO (09:56)
[2023-01-27] MEDS: methylPREDNISolone Sod Succ 40 MG/ML VIAL 20 MG IVPUSH (09:56)
[2023-01-27] MEDS: lisinopriL 40 MG TABLET PO (09:56)
[2023-01-27] MEDS: Cholecalciferol (Vitamin D3) 25 MCG TABLET PO (09:56)
[2023-01-27] MEDS: Doxycycline Hyclate 100 MG in 0.9 % Sodium Chloride 250 ML 166.67 MG IV ×2 (10:00→20:02)
--- NOTE | 2023-01-27 11:41 | HO.PM.IMPN ---
Subjective Subjective Date of Service: 01/27/23 Interval History: Seen and examined this morning Follow-up for respiratory failure History obtained with the assistance of a farm contractor buyer patient reports productive cough. No significant shortness of breath. Review of Systems Review of Systems: Yes all other systems are reviewed and are negative Constitutional Constitutional: Denies chills and Denies fever(s) ENT Ears, Nose, Mouth, and Throat: Denies dizziness Cardiovascular Cardiovascular: Denies chest pain and Denies palpitations Respiratory Respiratory: Reports cough Gastrointestinal Gastrointestinal: Denies abdominal pain Neurologic Neurologic: Denies dizziness Endocrine Endocrine: Denies palpitations Physical Exam Vital Signs: Vital Signs: Last Vital Signs Temp 97.1 F 01/27/23 11:07 Pulse 87 01/27/23 11:20 Resp 20 01/27/23 11:20 BP 131/58 L 01/27/23 11:07 Pulse Ox 96 01/27/23 11:07 O2 Del Method Oxymask 01/27/23 11:07 O2 Flow Rate 7 01/27/23 11:07 FiO2 67.3 01/27/23 07:24 Oxygen Flow Rate 8 01/24/23 13:15 BMI result Body Mass Index 32.6 Const: General: comfortable, alert and awake Nutritional Appearance: overweight Orientation/consciousness: patient oriented x3 Resp: Effort & Inspection: normal respiratory effort, able to speak in complete sentences, no respiratory distress and no use of accessory muscles Cardio: Rate: regular rate Heart sounds: S1 normal heart sound present and S2 normal heart sound present GI: Inspection: No distended Palpation (GI): Soft to palpation and nontender Neuro: Other: grossly nonfocal General: patient oriented x3 Extrem: General: Yes no pedal edema Objective Data Active Medications Acetaminophen (Acetaminophen 325 Mg Tablet) 650 mg PO Q6H PRN PRN Reason: Pain, Mild (Pain Scale 1-3) Last Admin: 01/24/23 22:39 Dose: 650 mg Documented By: MADDY Albuterol Sulfate (Albuterol Sulfate (0.083%) 2.5 Mg/3 Ml Vial.Neb) 2.5 mg INHALE Q4H PRN PRN Reason: Shortness of Breath/Wheezing Last Admin: 01/24/23 18:43 Dose: 2.5 mg Documented By: NAVJOT Albuterol/Ipratropium (Albuterol/Iprat 2.5/0.5mg 3 Ml Ampul.Neb) 3 ml INHALE RQ4H WHILE AWAKE [facility] Last Admin: 01/27/23 11:17 Dose: 3 ml Documented By: STEW Amlodipine Besylate (Amlodipine Besylate 5 Mg Tablet) 5 mg PO DAILY [facility]; Protocol Last Admin: 01/27/23 09:56 Dose: 5 mg Documented By: CLINTON Atorvastatin Calcium (Atorvastatin Calcium 10 Mg Tablet) 10 mg PO BEDTIME [facility] Last Admin: 01/26/23 20:10 Dose: 10 mg Documented By: SAL Benzonatate (Benzonatate 100 Mg Capsule) 200 mg PO TID PRN PRN Reason: Cough Last Admin: 01/27/23 03:25 Dose: 200 mg Documented By: KELLEY Docusate Sodium (Docusate Sodium 100 Mg Capsule) 100 mg PO DAILY PRN PRN Reason: Constipation Doxycycline Hyclate 100 mg/ (Sodium Chloride) 250 mls @ 166.67 mls/hr IV Q12H [facility] Last Admin: 01/27/23 10:00 Dose: 166.67 mls/hr Documented By: CLINTON Lisinopril (Lisinopril 40 Mg Tablet) 40 mg PO DAILY [facility]; Protocol Last Admin: 01/27/23 09:56 Dose: 40 mg Documented By: CLINTON Methylprednisolone Sodium Succinate (Methylprednisolone Sod Succ 40 Mg/Ml Vial) 20 mg IVPUSH DAILY [facility] Last Admin: 01/27/23 09:56 Dose: 20 mg Documented By: CLINTON Ondansetron HCl (Ondansetron Hcl 4 Mg/2 Ml Vial) 4 mg IVPUSH Q8H PRN PRN Reason: Nausea and Vomiting Pharmacy Consult (Consult Rx Perform Med Rec) 1 each MISCELLANE ONCE PRN PRN Reason: Consult order Rivaroxaban (Rivaroxaban 20 Mg Tablet) 20 mg PO DAILY@1730 [facility] Last Admin: 01/26/23 17:33 Dose: 20 mg Documented By: SAL Sodium Chloride (0.9 % Sodium Chloride Flush 3 Ml Syringe) 3 ml IVFLUSH QSHIFT [facility] Last Admin: 01/27/23 09:57 Dose: 3 ml Documented By: CLINTON Vitamin D (Cholecalciferol (Vitamin D3) 25 Mcg Tablet) 25 mcg PO DAILY [facility] Last Admin: 01/27/23 09:56 Dose: 25 mcg Documented By: JESUSYM Labs 01/25/23 05:53 01/25/23 05:53 Microbiology Microbiology Results: Microbiology 01/24/23 12:52 Blood Culture - Preliminary Blood - Venous No growth after 48 hours. 01/24/23 12:13 Blood Culture - Preliminary Blood - Venous No growth after 48 hours. Assessment and Plan (1) Acute respiratory failure with hypoxia: Status: Acute Plan 82 year old female with history of pulmonary embolism on xarelto, aortic stenosis, hld, htn, MR, chronic low back pain, and venous insufficiency admitted for acute hypoxemic respiratory failure due to pneumonia. Acute hypoxemic respiratory failure due to bilateral lower lobe pneumonia likely due to coronavirus infection Continue high-flow oxygen and gradually wean, desaturated overnight and placed back on high flow; patient has had sleep study done in [place] and was negative for sleep apnea CXR showing bilateral patchy opacities L>R with right bibasilar opacities which may reflect infection or aspiration. CTA chest that showed atelectasis, small infiltrates and pneumonitis and no evidence of PE, showed finding suggestive of pulmonary hypertension likely related to PE Viral panel positive for coronavirus so likely viral URI with superimposed bacterial infection -will dc unasyn and continue IV doxycycline started 01/25 -on Methylprednisolone 40mg BID IV will decrease to 20 mg IV b.i.d. to treat associated penumonitis, scheduled DuoNeb and as needed albuterol -legionella ag, and strep pneumo ag pending -being followed by pulmonology - connective tissue workup pending -goal o2 sat >97% per pulmonology -will likely need home o2 eval prior to d/c brief episode of chest pain 01/25, EKG showed no acute ischemia, troponin negative Pulmonary embolism -continue xarelto HTN- -continue norvasc, lisinopril HLD -continue statin DVT prophylaxis- on xarelto Full code attending - dr. Zelaya Pt, requires continued inpatient stay for management of acute hypoxia 2/2? pneumonia requiring IV abs, high flow O2 with titration, and close monitoring. Time Spent With Patient Time: Total time managing care of this patient today ____ minutes. Quality Stroke Does the patient have a stroke diagnosis?: No VTE Prior VTE?: Yes VTE Risk Level:: Medical - moderate - high VTE Device Contraindication: Treatment Not Indicated VTE Drug Contraindication: N/A - Med Ordered
--- NOTE | 2023-01-27 14:58 | MHC.SL.SWA ---
Speech Pathologist Impression: Risk of Aspiration Due to: Weak Cough Dysphasia Diet Status: Recommend continue on current diet of Chopped/Advanced (NDD3) with thin liquids, pills whole with liquid (no change). Liquid Consistency and Strategies for Safe Swallow: Liquid Intake Recommendation: Thin Liquid Intake Strategies: Small Sips No Straws Solid Food Consistency: Dietary Recommendations: Chopped/Advanced (NDD3) Additional Modifications to Solid Foods: Moisten w/ sauce/gravy Oral Medication Intake: Whole with Liquid Please contact the pharmacy regarding appropriate crushable or liquid drug formulations that are available whenever modified delivery is recommended. Compensatory Strategies and Precautions to be Taken for Safe Swallow: Sitting Upright (90 deg) No Straw Small Bites and Sips Alternate Liquids/Solids Rate of Ingestion Change Avoid Specific Foods Supervision While Eating and Drinking for Safe Swallow: Intermittent Supervision Foods to Avoid: Avoid tough, sticky, hard to chew foods Swallowing Recommended Treatments: Compens. Strategy Educat. Recommendation for Speech: Further Testing Needed Comment: Pt seen during lunch meal. Patient had mostly finished meal at time of visit, reporting that she had no difficulties with swallowing. Patient is currently on Oxymask, and was raising and lowering mask after taking bites of food (taking oxygen breaks during meal). Patient took sip of water from cup, produced a timely oral and pharyngeal phase of swallow with no signs of aspiration. Patient consumed most of her lunch, expressed satisfaction with the food. Recommend continue on current diet of Chopped/Advanced (NDD3) with thin liquids, pills whole with liquid (no change). Patient is able to feed self, is exercising good judgement about oxygen needs, and can be independent during meals. Frequency/Duration: Date Range for Service Req: Timeline to reassess: Iron Worker Clinican/Clinical Fellow: No Supervisory Statement: I have reviewed and agree with the student/clinical fellow's documentation: No Speech Language Pathologist: Savanah Negron M.A., CCC-BI TRI OPERATOR
--- NOTE | 2023-01-27 16:30 | PM.PNPUL ---
Subjective Subjective Date of Service: 01/27/23 Interval history: The patient was seen on exam today. Her breathing is better overall. She was able to be weaned down to nasal cannula during the daytime but then again overnight she was placed back on high-flow. She tends to be hypoxic at nighttime. May be a component to sleep apnea. The patient responded well to diuresis. Her respiratory viral panel was also positive for coronavirus likely precipitating this lower respiratory infection. Her antibiotics were deescalated. She continues on some prednisone. Objective Data Labs 01/25/23 05:53 01/25/23 05:53 Microbiology Microbiology Results: Microbiology 01/24/23 12:52 Blood - Venous Blood Culture - Preliminary No growth after 48 hours. 01/24/23 12:13 Blood - Venous Blood Culture - Preliminary No growth after 48 hours. 01/24/23 16:34 Sputum - Expectorated Gram Stain - Final 01/24/23 16:34 Sputum - Expectorated Sputum Culture - Final Review of Systems Review of Systems General: +generalized weakness, +chills, +malaise. No fevers, unintentional weight loss HEENT: +sore throat No nasal congestion, rhinorrhea, sinus pain, ear pain Cardiovascular: No chest pain, palpitations, or leg edema Respiratory: +cough. No shortness of breath, wheezing GI: No abdominal pain, nausea, vomiting, diarrhea, constipation, melena, hematochezia : No dysuria, hematuria, increased urinary frequency, decreased urinary output MSK: No myalgia, back pain Neuro: +headache. No focal weakness, paresthesias Skin: No rashes or lesions Physical Exam Vital Signs: Vital Signs: Last Vital Signs Temp 96.8 F 01/27/23 15:25 Pulse 72 01/27/23 15:34 Resp 18 01/27/23 15:34 BP 120/63 01/27/23 15:25 Pulse Ox 98 01/27/23 15:25 O2 Del Method Oxymask 01/27/23 15:25 O2 Flow Rate 7 01/27/23 15:25 FiO2 67.3 01/27/23 07:24 Oxygen Flow Rate 8 01/24/23 13:15 BMI result Body Mass Index 32.6 Const: General: comfortable, alert and awake Nutritional Appearance: overweight Orientation/consciousness: patient oriented x3 Resp: Effort & Inspection: normal respiratory effort, able to speak in complete sentences, no respiratory distress and no use of accessory muscles Cardio: Rate: regular rate Heart sounds: S1 normal heart sound present and S2 normal heart sound present GI: Inspection: No distended Palpation (GI): Soft to palpation and nontender Neuro: Other: grossly nonfocal General: patient oriented x3 Extrem: General: Yes no pedal edema Procedures Date of Service Date of Service: 01/27/23 Assessment and Plan Assessment and plan (1) Acute respiratory failure with hypoxia: Status: Acute (2) Aspiration pneumonia: Status: Acute (3) CAP (community acquired pneumonia): Status: Acute (4) Pulmonary hypertension: Status: Acute (5) Chest pain: Status: Acute Plan P.o. prednisone is okay with taper Diuresis as tolerated Will likely need oxygen upon discharge continue doxy Awaiting viral panel and bloodwork continue xorelto Will have outpatient follow-up. Time Spent With Patient Time: Total time managing care of this patient today ____ minutes. Progress Note: Quality Stroke Does the patient have a stroke diagnosis?: No
[2023-01-27] MEDS: Rivaroxaban 20 MG TABLET PO (17:14)
[2023-01-27 19:58] LABS: Immunoglobulin E 20 kU/L (<OR=114)
[2023-01-27] MEDS: Atorvastatin Calcium 10 MG TABLET PO (20:02)
[2023-01-28] VITALS (8 sets, daily range): BP systolic 140–173; BP diastolic 62–78; PULSE 72–101; RESP 16–20; TEMP 36.2–37.1; O2SAT 84–96
[2023-01-28 00:28] LABS: Strep Pneumo Ag urine Not Detected (Not Detected)
[2023-01-28] MEDS: 0.9 % Sodium Chloride Flush 3 ML SYRINGE IVFLUSH ×2 (00:44→09:02)
[2023-01-28 06:05] LABS: ABG Base Excess 10.1 mmol/L; ABG HCO3 35 mmol/L (22-26); ABG pCO2 51 mmHg (32-45); ABG pH 7.45 (7.35-7.45); ABG pO2 83 mmHg (83-108)
[2023-01-28] MEDS: Benzonatate 100 MG CAPSULE 200 MG PO (06:44)
[2023-01-28 07:02] LABS: ABG Refer to POC result
[2023-01-28] MEDS: Albuterol/Iprat 2.5/0.5MG 3 ML AMPUL.NEB INHALE ×2 (07:30→11:52)
[2023-01-28] MEDS: lisinopriL 40 MG TABLET PO (08:54)
[2023-01-28] MEDS: Cholecalciferol (Vitamin D3) 25 MCG TABLET PO (08:54)
[2023-01-28] MEDS: amLODIPine Besylate 5 MG TABLET PO (08:54)
[2023-01-28] MEDS: methylPREDNISolone Sod Succ 40 MG/ML VIAL 20 MG IVPUSH (08:54)
[2023-01-28] MEDS: Doxycycline Hyclate 100 MG in 0.9 % Sodium Chloride 250 ML 166.67 MG IV (08:55)
--- NOTE | 2023-01-28 09:34 | PM.PNPUL ---
Subjective Subjective Date of Service: 01/28/23 Interval history: The patient was seen and examined. Feeling better. Still requiring some oxygen. Will benefit from oxygen upon discharge. Will need outpt f/u. Objective Data Labs 01/25/23 05:53 01/25/23 05:53 Labs: Laboratory Results - last 24 hr 01/24/23 01/25/23 01/28/23 16:33 13:53 05:56 O2 Saturation 96.0 ABG pH at Pt Temp 7.45 ABG pCO2 at Pt Temp 51 H ABG pO2 at Pt Temp 83 ABG HCO3 35 H ABG Base Excess (Actual) 10.1 IgE 20 Ur Strep pneumoniae Ag Not Detected Microbiology Microbiology Results: Microbiology 01/24/23 12:52 Blood - Venous Blood Culture - Preliminary No growth after 48 hours. 01/24/23 12:13 Blood - Venous Blood Culture - Preliminary No growth after 48 hours. 01/24/23 16:34 Sputum - Expectorated Gram Stain - Final 01/24/23 16:34 Sputum - Expectorated Sputum Culture - Final Review of Systems Review of Systems General: No fevers, unintentional weight loss HEENT:No nasal congestion, rhinorrhea, sinus pain, ear pain Cardiovascular: No chest pain, palpitations, or leg edema Respiratory: +cough. No shortness of breath, wheezing GI: No abdominal pain, nausea, vomiting, diarrhea, constipation, melena, hematochezia : No dysuria, hematuria, increased urinary frequency, decreased urinary output MSK: No myalgia, back pain Neuro: +headache. No focal weakness, paresthesias Skin: No rashes or lesions Physical Exam Vital Signs: Vital Signs: Last Vital Signs Temp 97.1 F 01/28/23 07:53 Pulse 86 01/28/23 07:53 Resp 16 01/28/23 07:53 BP 142/62 H 01/28/23 07:53 Pulse Ox 96 01/28/23 03:58 O2 Del Method Nasal Cannula 01/28/23 07:53 O2 Flow Rate 3 01/28/23 07:53 FiO2 67.3 01/27/23 07:24 Oxygen Flow Rate 8 01/24/23 13:15 BMI result Body Mass Index 32.6 Const: General: comfortable, alert and awake Nutritional Appearance: overweight Orientation/consciousness: patient oriented x3 Resp: Effort & Inspection: normal respiratory effort, able to speak in complete sentences, no respiratory distress and no use of accessory muscles Auscultation: no crackles, no rales, no rhonchi, no wheezes and diminished lung sounds Cardio: Rate: regular rate Heart sounds: S1 normal heart sound present and S2 normal heart sound present GI: Inspection: No distended Palpation (GI): Soft to palpation and nontender Neuro: Other: grossly nonfocal General: patient oriented x3 Extrem: General: Yes no pedal edema Procedures Date of Service Date of Service: 01/28/23 Assessment and Plan Assessment and plan (1) Acute respiratory failure with hypoxia: Status: Acute (2) CAP (community acquired pneumonia): Status: Acute (3) Pulmonary hypertension: Status: Acute Plan P.o. prednisone with taper Diuresis as tolerated Will likely need oxygen upon discharge continue doxy x 10 days Awaiting viral panel and bloodwork continue xorelto Will have outpatient follow-up. Time Spent With Patient Time: Total time managing care of this patient today ____ minutes. Progress Note: Quality Stroke Does the patient have a stroke diagnosis?: No
--- NOTE | 2023-01-28 11:51 | P.DS_ITS ---
DS: Providers Provider Date of Service: 01/28/23 Date of admission: 01/24/23 13:48 Date of discharge: 01/28/23 Primary care physician: Trina Escobedo MD Consults: 01/25/23 09:56 Consult to Pulmonology Routine Consulting Provider: [facility] [place] Pulmonology Services Reason for consultation: hypoxia / Has provider been notified: No Attending physician on discharge: Shoshana Valverde Discharging clinician: Peyton Tang DS: Diagnosis Discharge Diagnosis (1) Acute respiratory failure with hypoxia: Status: Acute (2) CAP (community acquired pneumonia): Status: Acute (3) Pulmonary hypertension: Status: Acute DS: Summary Hospital Course Hospital Course: From H&P on day of admission 82 year old female with history of pulmonary embolism compliant with xarelto, aortic stenosis, hld, htn, MR, chronic low back pain, and venous insufficiency presents to the ED for evaluation of malaise, weakness, chest congestion, sore throat, cough with yellow sputum production, headache, and chills ongoing for 6 days and worsening. There has been shortness of breath more recently. No fevers reported. No known sick contacts. No abd pain, n/v/d, lightheadedness, palpitations, or chest pain. She has been noted to slightly choke occasionally when eating and drinking. No recent illness or hospitalization. On arrival, pt hypoxic to 79% improved to 89% on NC and was transitioned to high flow O2 at 50%, initially tachypneic to 22 and tachycardic to 106 which have imrpoved. Patient now breathing comfortably and denies distress. There is a mild leukocytosis of 12.0, no bandemia. Renal function and electrolytes normal except for mild hyponatremia 134. Hepatic panel normal. Negative for COVID-19, influenza, RSV. CXR showing patchy left greater than right bibasilar airspace opacities which may reflect infection or aspiration. In the ED, given 1g IV ceftriaxone and 500mg IV azithromycin. Acute hypoxemic respiratory failure due to bilateral lower lobe pneumonia likely due to coronavirus infection. ?CXR showing bilateral patchy opacities L>R with right bibasilar opacities which may reflect infection or aspiration. CTA chest that showed atelectasis, small infiltrates and pneumonitis and no evidence of PE, showed finding ?suggestive of pulmonary hypertension likely related to PE. Viral panel positive for coronavirus so likely viral URI with superimposed bacterial infection. Patient initially required high-flow oxygen but was able to be weaned off oxygen at rest. She was treated with IV doxycycline as well as steroids for associated penumonitis. Strep pneumo urine antigen not detected, Legionella urine antigen pending at the time of discharge. She was seen in consultation by pulmonology and connective tissue workup obtained and pending at the time of discharge. She was noted to desaturate at night and had overnight oximetry test was done and she qualifies for 4 L of oxygen at night. She had home oxygen evaluation and also qualifies for 4 L of supplemental oxygen during ambulation. She will be discharged home to complete course of oral doxycycline as well as a prednisone taper. She is encouraged to follow-up with her PCP as well as pulmonology. Status at Discharge Functional status at discharge: independent ambulation Time Spent with Patient Time attestation: Total time managing care of this patient today ____ minutes. Discharge coordination time: Greater than 30 minutes Quality: Safe Use of Opioids Does Pt have an Active Cancer Diagnosis on the Problem List?: No Quality: Stroke Does the patient have a stroke diagnosis?: No Physical Exam Vital Signs: Vital Signs: Last Vital Signs Temp 97.7 F 01/28/23 11:32 Pulse 83 01/28/23 11:32 Resp 16 01/28/23 11:32 BP 140/65 H 01/28/23 11:32 Pulse Ox 91 L 01/28/23 11:32 O2 Del Method Room Air 01/28/23 11:32 O2 Flow Rate 3 01/28/23 07:53 FiO2 67.3 01/27/23 07:24 Oxygen Flow Rate 8 01/24/23 13:15 BMI result Body Mass Index 32.6 Const: General: comfortable, alert and awake Nutritional Appearance: overweight Orientation/consciousness: patient oriented x3 Resp: Effort & Inspection: normal respiratory effort, able to speak in complete sentences, no respiratory distress and no use of accessory muscles Cardio: Rate: regular rate Heart sounds: S1 normal heart sound present and S2 normal heart sound present GI: Inspection: No distended Palpation (GI): Soft to palpation and nontender Neuro: Other: grossly nonfocal General: patient oriented x3 and moves all extremities Extrem: General: Yes no pedal edema DS: Data Data Completed and Pending Labs on day of discharge: Laboratory Results - last 24 hr 01/24/23 01/25/23 01/28/23 16:33 13:53 05:56 O2 Saturation 96.0 ABG pH at Pt Temp 7.45 ABG pCO2 at Pt Temp 51 H ABG pO2 at Pt Temp 83 ABG HCO3 35 H ABG Base Excess (Actual) 10.1 IgE 20 Ur Strep pneumoniae Ag Not Detected Preliminary micro results at discharge 01/24/23 12:52 Blood Culture - Preliminary Blood - Venous No growth after 48 hours. 01/24/23 12:13 Blood Culture - Preliminary Blood - Venous No growth after 48 hours. Discharge Plan Discharge Anticipated Discharge Date/Time: 01/28/23 12:11 Patient Disposition: Home Health Service Discharge Diagnosis: acute hypoxemic respiratory failure due to bilateral lower lobe pneumonia due to caronavirus Referrals: Trina Briones MD [Primary Care Provider] - 1 Week Martín Cote MD [Physician] - 1 Week Discharge Medications: New doxycycline hyclate 100 mg tablet 100 mg PO BID 8 Days Qty: 16 0RF prednisone 10 mg tablet See Taper PO DAILY Qty: 30 0RF Taper: Prednisone 40 mg daily for 3 Days and 0 Hour 30 mg daily for 3 Days and 0 Hour 20 mg daily for 3 Days and 0 Hour 10 mg daily for 3 Days and 0 Hour benzonatate 100 mg Capsule 100 mg PO TID PRN (Reason: Cough) Qty: 20 0RF Continued amlodipine 5 mg tablet 5 mg PO DAILY 90 Days Qty: 90 1RF furosemide 20 mg tablet 20 mg PO DAILY 90 Days Qty: 90 0RF atorvastatin 10 mg tablet 10 mg PO BEDTIME rivaroxaban 20 mg tablet 20 mg PO DAILY@1700 Rx Instructions: must administer with evening meal Stiolto Respimat 2.5-2.5 mcg/actuation Mist 2 puff INHALATION DAILY Qvar RediHaler 40 mcg/actuation HFA aerosol breath activated 2 inh inhalation Q12H 30 Days Qty: 10.6 2RF Rx Instructions: administer with spacer cholecalciferol (vitamin D3) 25 mcg (1,000 unit) capsule 25 mcg PO DAILY omega 6-phr-eps-fish oil [Fish Oil] 300-1,000 mg capsule 1 cap PO DAILY Held lisinopril 40 mg tablet 40 mg PO DAILY 90 Days Qty: 90 1RF Hold Instructions: hold until follow up with PCP Discharge Orders: Discharge Order (Routine); Ordered 01/28/23 Ordered By: Peyton Tang Activity on Discharge: As tolerated Stand Alone Forms: Patient Portal Discharge page Care Plan Goals: see below Health Concerns: respiratory failure related to pneumonia from coronavirus infection Plan of Treatment: Complete course of antibiotics as prescribed Complete course of prednisone as prescribed You qualify for all 4 L of supplemental oxygen at night while sleeping and during ambulation/activity Call to schedule a follow-up appointment with your PCP in the next week Call to schedule a follow-up appointment with all source analyst Assessment: see discharge summary
--- NOTE | 2023-01-28 12:14 | P.F2F_ITS ---
Service Date Service Date: 01/28/23 Encounter Date of encounter: 01/28/23 Reasons for Services Signs and symptoms assessed: needs senior living for new supplemental oxygen teaching and blood pressure checks Overseeing Care: Trina Escobedo Homebound: Leaving the home is medically contraindicated at this time without the asist of a device and/or another person due th the listed conditions above and below. Reason homebound: weakness related to hospital stay Certification: Based on the above findings, I certify that this patient is confined to the home and needs intermittent senior living care, physical therapy and/or speech therapy, or continues to need occupational therapy. The patient is under my care, and I have initiated the establishment of the plan of care. The patient will be followed by a physician who will periodically review the plan of care. Time Spent With Patient Time: Total time managing care of this patient today ____ minutes.
--- NOTE | 2023-01-28 12:21 | MHC.CM.PN ---
Patient has been medically cleared for dc to home today with services. CM met with Patient and 2 Visitors and addressed IMM with her, providing Patient with the original and placing a copy on the chart. Patient is agreeable to have [facility], who has been made aware of today's dc.
--- NOTE | 2023-01-28 13:57 | MHC.SL.SWA ---
Speech Pathologist Impression: Risk of aspiration Risk of Aspiration Due to: Weak Cough Dysphasia Diet Status: Recommend continue on current diet of Chopped/Advanced (NDD3) with thin liquids, pills whole with liquid (no change). Liquid Consistency and Strategies for Safe Swallow: Liquid Intake Recommendation: Thin Liquid Intake Strategies: Small Sips No Straws Solid Food Consistency: Dietary Recommendations: Chopped/Advanced (NDD3) Additional Modifications to Solid Foods: Moisten w/ sauce/gravy Oral Medication Intake: Whole with Liquid Please contact the pharmacy regarding appropriate crushable or liquid drug formulations that are available whenever modified delivery is recommended. Compensatory Strategies and Precautions to be Taken for Safe Swallow: Sitting Upright (90 deg) No Straw Small Bites and Sips Alternate Liquids/Solids Rate of Ingestion Change Avoid Specific Foods Supervision While Eating and Drinking for Safe Swallow: Intermittent Supervision Foods to Avoid: Avoid tough, sticky, hard to chew foods Swallowing Recommended Treatments: Compens. Strategy Educat. Recommendation for Speech: Continue to follow Gas Attendant Clinican/Clinical Fellow: No Supervisory Statement: I have reviewed and agree with the student/clinical fellow's documentation: No Speech Language Pathologist: Margy Byrnes M.A., CCC-ENGINEERED WOOD DESIGNER
[2023-01-30 07:28] LABS: Legionella Ag Urine Not Detected (Not Detected)
[2023-02-01 13:28] LABS: Anti Nuclear Antibody Pattern Nuclear, Speckled; Anti Nuclear Antibody Screen POSITIVE (NEGATIVE)
[2023-02-02 11:14] LABS: Cyclic Citrullinated Peptide <16 UNITS
[2023-02-02 13:23] LABS: Myeloperoxidase Antibody <1.0 AI; Proteinase 3 PR3 Antibodies <1.0 AI
== END 2023-01-28 14:40 | disposition home health service (06) | DRG 194 ==
LOC: HO.ED 13:45 → HO.EDOVER 14:10 → HO.IMC 15:53
PROVIDERS: Hospitalist; Physician Assistant; Admitting Provider Physician Assistant; Emergency Provider Emergency Medicine; PCP Internal Medicine; Visit Provider Physician Assistant Medical
DX: J12.89 Other viral pneumonia (principal); J98.11 Atelectasis; B97.29 Other coronavirus as the cause of diseases classified elsewhere; M54.59 Other low back pain; G89.29 Other chronic pain; I10 Essential (primary) hypertension; I27.20 Pulmonary hypertension, unspecified; I08.0 Rheumatic disorders of both mitral and aortic valves; E78.00 Pure hypercholesterolemia, unspecified; Z86.711 Personal history of pulmonary embolism; Z79.01 Long term (current) use of anticoagulants; Z79.899 Other long term (current) drug therapy
CPT/HCPCS: 0241U; 36415; 36600; 71045; 71275; 80048; 80053; 82785; 82803; 83605; 83880; 84145; 84484; 85025; 85610; 85652; 85730; 86021; 86038; 86039; 86200; 87040; 87070; 87205; 87449; 87633; 87899; 92526; 92610; 93005; 94640; 94660; 94762; 99285; J0295; J0456; J0696; J1940; J2920; Q9967

== ENCOUNTER 2023-02-02 13:03 | Outpatient (REF) | payer MEDICARE, SELFPAY ==
--- NOTE | ~2023-02-02 | MM_ITS ---
EXAMINATION: BONE DENSITOMETRY CLINICAL INDICATION: Unspecified menopausal and perimenopausal disorder. COMPARISON: Baseline BD dated 03/21/2015. TECHNIQUE: Using a [employer] DXA System (software version: 13.1) manufactured by [employer], dual-energy x-ray absorptiometry was performed of the lumbar spine and left hip. The images are of good technical quality. Summary results are attached. FINDINGS: AP SPINE L1-L4: Current: BMD 1.329 g/cm2, Z-score 2.1, T-score 1.2, normal, 10.2% increase from baseline (<5% change is not significant). Baseline: BMD 1.206 g/cm2. LEFT FEMUR, NECK: Current: BMD 1.189 g/cm2, Z-score 2.6, T-score 1.1, normal. Baseline: BMD 1.166 g/cm2. LEFT FEMUR, TOTAL: Current: BMD 1.207 g/cm2, Z-score 2.9, T-score 1.6, normal, 2.5% increase from baseline (<5% change is not significant). Baseline: BMD 1.177 g/cm2. IDENTIFIED RISK FACTORS: Menopause. HISTORY OF FRACTURE: None listed. MEDICATIONS: Vitamin D. MM/XR DEXA axial skeleton IMPRESSION: 1. DIAGNOSIS: Normal bone density based on the lowest T-score value of 1.1 in the femoral neck applying World Health Organization criteria. 2. 10-YEAR FRACTURE RISK PREDICTION, FRAX: According to the guidelines, FRAX calculation should only be performed on patients in the osteopenia bone density category. Therefore, FRAX was not performed on this patient. 3. Treatment Recommendations: NOF guidelines recommend consideration for treatment in postmenopausal women and men age 50 and older presenting with the following: -A hip or vertebral (clinical or morphometric) fracture. -T-score less than or equal to -2.5 at the femoral neck or spine after appropriate evaluation to exclude secondary causes. -Low bone mass at the hip or spine and a 10-year fracture probability by FRAX of greater than or equal to 3% for hip fracture or greater than or equal to 20% for major osteoporotic fracture based on the [place] adapted WHO algorithm. 4. Other Recommendations: All treatment decisions require clinical judgment and consideration of individual patient factors, including patient preferences, comorbidities, previous drug use, risk factors not captured in the FRAX model (e.g. frailty, falls, vitamin D deficiency, increased bone turnover, interval significant decline in bone density) and possible under or overestimation of fracture risk by FRAX. FUTURE SCAN RECOMMENDATION: People with diagnosed cases of osteoporosis or at high risk for fracture should have regular bone mineral density tests. For patients eligible for Medicare, routine testing is allowed once every 2 years. The testing frequency can be increased to one year for patients who have rapidly progressing disease, those who are receiving or discontinuing medical therapy to restore bone mass, or have additional risk factors.
--- NOTE | 2023-02-02 13:58 | CA_ITS ---
Transthoracic Echocardiogram Patient (Last, First, Middle): Araseli Chávez E Gender: Female Date of : 1940 Age: 82 Procedure Date: 02/02/2023 Procedure Type: Transthoracic Echocardiogram Location: OP Height: 157.48 cm Weight: 91.63 kg BSA: 1.92 m2 Heart Rate: 82 bpm BP: 140 / 90 mmHg Kitchen And Bath Designer: SENTHIL Referring MD: Isaiah Izquierdo MD Senior Gl Accountant: Isaiah Izquierdo MD Symptoms: I35.0 - Nonrheumatic aortic (valve) stenosis Study Quality: Fair ECG Rhythm: Sinus Conclusions: - 1. Normal LV systolic function with LVEF of 60 65% with impaired relaxation filling pattern 2. Hjuc-kn-estwnnwn aortic stenosis 3. Mildly elevated right ventricular systolic pressure 4. No pericardial effusion Findings Left Ventricle Normal left ventricular size and systolic function. There is mildly increased left ventricular wall thickness. The visually estimated ejection fraction is between 60-65%. Spectral Doppler is indicative of an impaired relaxation filling pattern. E/E prime ratio is between 8 and 15 consistent with indeterminate filling pressures. Right Ventricle Normal right ventricular cavity size and systolic function. Atria The left atrium is likely dilated. There is no evidence of interatrial shunt. The right atrium is normal in size. Aortic Valve There is moderate calcification of the aortic valve. There is mild thickening of the aortic valve. There is mild to moderate aortic valve stenosis. There is no aortic valve regurgitation. Mitral Valve There is mild anterior and moderate posterior mitral leaflet thickening. There is severe mitral annular calcification. There is trace mitral valve regurgitation. There is no mitral valve stenosis. Pulmonic Valve The pulmonic valve is likely normal. Tricuspid Valve Normal tricuspid valve structure. There is mild tricuspid valve regurgitation. Normal right atrial pressure. Mild pulmonary hypertension is present. Great Vessels All visible segments of the aorta are normal in size. The pulmonary artery was not well visualized. Venous The inferior vena cava is normal in size and collapses greater than 50% with inspiration. Pericardium/Pleural There is no evidence of pericardial effusion. Prior Study Comparison Changes noted compared to prior study dated: 03/09/2022. RV systolic pressure is mildly elevated Measurements 2D Linear Measurements IVSd: 1.25 0.6-0.9/0.6-1.0 cm LVIDd: 4.24 3.9-5.3/4.2-5.9 cm LVIDd Index: 1.85 2.4-3.2/2.2-3.1 cm/m2 LVIDs: 2.37 2.0-3.6 cm LVPWd: 1.08 0.7-1.1 cm LA Diam: 4.20 2.7-3.8/3.0-4.0 cm LAIDs Index: 1.83 1.5-2.3 cm/m2 LV Mass: 215.66 67-162/88-224 g LV Mass Index: 94.18 43-95/49-115 g/m2 LVOT Diam: 2.00 3.0+(-)1.3 cm 2D Systolic Function EF 2C: 67.30 >55% Mitral Valve MV VTI: 0.35 MV Pk Jono: 1.63 MV Mn Jono: 0.99 MV Pk Grad: 11.00 MV Mn Grad: 4.00 MV Pk E: 1.07 MV PK A: 1.36 MV Decel Time: 220.00 E/A: 0.80 E'Lateral: 4.79 E'Medial: 3.81 E/E' Med: 28.10 E/E' Lat: 22.30 PHT: 64.00 MVA PHT: 3.44 MVA Continuity: 2.40 Decel Red [place]ow: 4.87 Aortic Valve AoV Pk Jono: 2.80 AoV Mn Jono: 1.92 AoV VTI: 0.57 AoV Pk Grad: 31.00 Aov Mn Grad: 17.00 ANSLEY Cont.VTI: 1.35 LVOT LVOT Pk Jono: 1.09 LVOT Mn Jono: 0.79 LVOT VTI: 0.26 LVOT Pk Grad: 5.00 LVOT Mn Grad: 3.00 LVOT Diam: 2.00 LVOT Area: 3.14 Diastolic Function MV Pk E: 1.07 MV Pk A: 1.36 E/A: 0.80 E'Medial: 3.81 E/E' Med: 28.10 E' Laterial: 4.79 E/E' Lat: 22.30 Right Ventricle TAPSE (mm): 22.30 TVS' Jono: 12.40 Tricuspid Valve TR Pk Jono: 3.12 TR Pk Grad: 39.00 RA Press: 3.00 RVSP: 42.00 Great Vessels Aorta Sinus of Valsalva: 3.00 2.0-3.5 cm Ao Asc: 3.20 2.1-3.4 cm Pulmonary Valve PV Pk Jono: 1.18 Peak PV Grad: 6.00 Updated in Other Vendor System with Status of Final Isaiah Izquierdo MD electronically signed on 02/03/2023 9:09:18 AM with status of Final
== END 2023-02-02 13:04 | disposition home or self-care (01) ==
LOC: HO.MAMMO 13:03
PROVIDERS: PCP Internal Medicine; Visit Provider Internal Medicine Cardiovascular Disease
DX: Z13.820 Encounter for screening for osteoporosis (principal); I35.0 Nonrheumatic aortic (valve) stenosis; N95.9 Unspecified menopausal and perimenopausal disorder
CPT/HCPCS: 77080; 93306

== ENCOUNTER 2023-03-10 14:47 | Outpatient (REF) | payer MEDICARE, SELFPAY ==
--- NOTE | ~2023-03-10 | XR_ITS ---
EXAMINATION: XR CHEST CLINICAL INFORMATION: Pulmonary hypertension. COMPARISON: CT angiogram chest 01/25/2023 and chest radiograph 01/24/2023. TECHNIQUE: 2 views of the chest were obtained. FINDINGS: Heart size within normal limits. No evidence of CHF. Some mild increased interstitial markings in the right lung correlate with scattered ground-glass opacities and areas of atelectasis seen on the prior CT scan. When comparison is made to the prior chest radiograph, no significant change is apparent. XR/XR chest 2V IMPRESSION: No acute intrathoracic disease.
== END 2023-03-10 14:48 | disposition home or self-care (01) ==
LOC: HO.XRAY 14:47
PROVIDERS: PCP Internal Medicine; Visit Provider Hospitalist
DX: R06.02 Shortness of breath (principal); I27.20 Pulmonary hypertension, unspecified; I35.0 Nonrheumatic aortic (valve) stenosis; J18.9 Pneumonia, unspecified organism
CPT/HCPCS: 71046; 94618; 99212

== ENCOUNTER 2023-03-10 14:47 | Outpatient (AMB) | payer MEDICARE, SELFPAY ==
--- NOTE | 2023-03-10 15:11 | MHC.OFFVIS ---
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 There has been shortness of breath more recently. No fevers reported. No known sick contacts. No abd pain, n/v/d, lightheadedness, palpitations, or chest pain. She has been noted to slightly choke occasionally when eating and drinking. No recent illness or hospitalization. On arrival, pt hypoxic to 79% improved to 89% on NC and was transitioned to high flow O2 at 50%, initially tachypneic to 22 and tachycardic to 106 which have imrpoved. Patient now breathing comfortably and denies distress. There is a mild leukocytosis of 12.0, no bandemia. Renal function and electrolytes normal except for mild hyponatremia 134. Hepatic panel normal. Negative for COVID-19, influenza, RSV. CXR showing patchy left greater than right bibasilar airspace opacities which may reflect infection or aspiration. In the ED, given 1g IV ceftriaxone and 500mg IV azithromycin.? The patient was admitted to the intermediate medical care unit on high-flow 50% and 35 L maintaining a pulse ox in the low 90s.? Denies any pleuritic discomfort.? On further questioning the patient states that 2 months ago she was evaluated in a hospital in [place] for worsening respiratory symptoms.? She was told per the patient's report that she has recurrent blood clots and some of them appear to be chronic.? Therefore she was placed back on Xarelto.? She has been on it for a couple months now.? She also has some leg swelling. 03/10/2023 the patient is here for hospital follow-up visit. She was admitted to the [facility] with acute respiratory failure. She did have a CT scan that time demonstrating no evidence of any thromboembolic disease. However, she had evidence of significant pneumonitis and airspace disease. Her viral panel was positive for coronavirus likely precipitating the significant viral illness affecting her lungs. The patient was on high-flow. She was discharged on oxygen. 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 She had been on Xarelto for many years and then stopped. When she will back to [place] the patient underwent a pulmonary angiography in additional testing. She was found to be hypoxic and placed on oxygen. The recommendation for her was to go back on anticoagulation which she did. Upon discharge from the hospital the patient has been prescribe oxygen although she has not used it. She has not felt the need to use it at nighttime or with activity. The the she is trying to fly back to [place]. Clinically the patient feels back to baseline. During the visit we did do a brief walking oximetry 6 minute walk test. Unfortunately the patient did desaturate down to 80% and was noted quickly that heart rate was increasing to about 125 beats per minute. The patient was visibly dyspneic. the patient was placed on 2 L nasal cannula and she was ambulated again and she maintain a pulse ox of 91-92% with activity and heart rate was better about 110. the patient needs to use oxygen primarily with activity. The I strongly recommended to the patient that she is not to travel unless she has a portable oxygen concentrator. She understands that that that capping pressure she would have a hard time with her breathing and could be detrimental to her heart and other end organs. the patient understands that through the [facility] getting a POC will take at least 6 months or more. If she is looking to traveling to [place] at the earliest of her convenience she would have to consider getting a POC herself. One that is [facility] approved. also, she did undergo an echocardiogram demonstrating [id number]-[id number] aortic stenosis. And some diastolic dysfunction. I did give her copies of the echo and also the CT scan for her to take with her when she goes back to [place]. She was wondering if she can come off the anticoagulation since she did have any blood clots in the medication is very expensive. I advised her to continue on the Xarelto until she follows in [place] with her care team that recommended to go back at [address] [facility] Medical History (Updated 03/11/23 @ 00:10 by Martín Cote MD) Aortic stenosis Dyspepsia Hypertension Lumbar pain Mitral regurgitation Pulmonary emboli Pulmonary hypertension Pure hypercholesterolemia Venous (peripheral) insufficiency Surgical History History of abdominoplasty History of tubal ligation Hx of cardiac cath Family History Father Stroke Mother Stroke Social History Household Members: Spouse Housing: House Do you presently have visiting nurse or other home services: No Alcohol intake: never Patient Tobacco Use Status: Never used Tobacco e-Cigarette/Vaping Use: Never Used Second Hand Smoke Exposure: No service: No Current occupational status: retired and disabled Cognitive needs: No Hearing needs: No Vision needs: No Review of Systems Const All systems reviewed & are unremarkable except as noted in HPI and below Eyes Reports no additional complaints, Denies change in vision and Denies other visual disturbances Card Denies chest pain at rest, Denies chest pain with activity, Denies edema, Denies irregular heart rhythm, Denies claudication, Denies dyspnea, Reports dyspnea on exertion, Denies orthopnea, Denies paroxysmal nocturnal dyspnea and Denies slow heart rate Resp Denies cough, Denies dyspnea and Reports dyspnea on exertion GI Denies abdominal pain, Denies change in bowel habits, Denies excessive flatus, Denies nausea and Denies vomiting Denies urinary incontinence, Denies urinary hesitancy and Denies urinary urgency Musc Denies abnormal gait, Denies atrophy, Denies deformity and Denies limited range of motion Skin/Breast Denies bleeding lesions, Denies changing lesions and Denies rash Neuro Denies abnormal gait, Denies behavioral changes and Denies lack of coordination Psych Denies behavioral changes Physical Exam Vital Signs: Last Vital Signs Pulse 83 03/10/23 15:12 BP 128/70 03/10/23 15:12 Pulse Ox 93 03/10/23 15:12 Oxygen Delivery Method Room Air 03/10/23 15:12 BMI result Body Mass Index 36.5 Last Vital Signs Temp 97.1 F 01/28/23 07:53 Pulse 86 01/28/23 07:53 Resp 16 06/02/23 07:53 BP 142/62 H 01/28/23 07:53 Pulse Ox 96 01/28/23 03:58 O2 Del Method Nasal Cannula 01/28/23 07:53 O2 Flow Rate 3 01/28/23 07:53 FiO2 67.3 01/27/23 07:24 Oxygen Flow Rate 8 01/24/23 13:15 BMI result Body Mass Index 32.6 Const General: comfortable HEENT Head: Yes normocephalic Neck Neck: Yes supple Chest Chest palpation & inspection: normal inspection of the chest Resp Effort & Inspection: normal respiratory effort, able to speak in complete sentences, no respiratory distress and no use of accessory muscles Auscultation: no crackles, no rales, no rhonchi, no wheezes and diminished lung sounds Cardio Rate: regular rate Heart sounds: S1 normal heart sound present, S2 normal heart sound present and Murmur heart sound present GI Inspection: No distended Palpation (GI): Soft to palpation and nontender Neuro Other: grossly nonfocal Extrem General: Yes no pedal edema Office Procedures 6 Minute Walk Time:: 23:58 SPO2 % at rest: 92 Pulse at rest: 100 SPO2 % during excercise: 80 Pulse during excercise: 122 Distance in yards walked: 250 Danna Score: 7 Supplemental Oxygen: hypoxia with activity, placed on oxygen 2L/min with activity mailtaining pox 91% [id number] - 6 Minute Walk Assessment & Plan Assessment & Plan (1) Pulmonary hypertension: Code(s): I27.20 - Pulmonary hypertension, unspecified (2) Aortic stenosis: Code(s): I35.0 - Nonrheumatic aortic (valve) stenosis (3) CAP (community acquired pneumonia): Comment: resolved Code(s): J18.9 - Pneumonia, unspecified organism (4) SOB (shortness of breath) on exertion: Code(s): R06.02 - Shortness of breath Plan The patient continues to need oxygen supplementation. Primarily due to her recent lower respiratory infection superimposed on her ongoing pulmonary vascular disease. The patient has not been using the oxygen that she has delivered and would like it picked up. Even after doing the walk can oximetry today and the patient demonstrated significant hypoxia she does not want to keep the oxygen in her home. Explained to her that by not using the oxygen with activity she is putting at risk developing a serious medical complication. Still, the patient would like the oxygen to be removed. I will go ahead and place the order is the patient is coherent and is able to make informed decisions. The patient also is recommended not to travel via air without a portable oxygen concentrator at this can also resulting in a serious medical complication. She will need a portable oxygen concentrator to travel. REC Discontinue home oxygen as per the patient's request The patient will look into a pressures of a portable oxygen concentrator. Ideally a portable oxygen concentrator that can also keep her on 2 L continuous or at least 5 L pulse. She will need enough battery life to be able to cover her trip and also potential delays. chest x-ray continue diuresis as tolerated follow-up in 4-6 weeks Orders: Orders XR chest 2V 03/10/23 I27.20 - Pulmonary hypertension, unspecified Medications: Discontinued atorvastatin 10 mg PO DAILY 90 tabs 2RF E78.00 - Pure hypercholesterolemia, unspecified rivaroxaban must administer with evening meal 20 mg PO DAILY 90 days 90 tabs 0RF I26.99 - Other pulmonary embolism without acute cor pulmonale Coding Level of Care Code Est Pt Level 5 (82533) Diagnoses Pulmonary hypertension I27.20 Aortic stenosis I35.0 CAP (community acquired pneumonia) J18.9 SOB (shortness of breath) on exertion R06.02 CPT Codes Coding ([id number]) Time Spent (min) 45
[2023-03-10 15:12] VITALS: BP 128/70; PULSE 83; O2SAT 93; BMI 36.5
[2023-03-10 23:58] VITALS: PULSE 100; O2SAT 92
== END 2023-03-10 16:05 | disposition home or self-care (01) ==
PROVIDERS: PCP Internal Medicine; Visit Provider Hospitalist
DX: I27.20 Pulmonary hypertension, unspecified (principal); I35.0 Nonrheumatic aortic (valve) stenosis; J18.9 Pneumonia, unspecified organism; R06.02 Shortness of breath
CPT/HCPCS: 94618; 99215

== ENCOUNTER 2023-04-25 14:13 | Outpatient (AMB) | payer MEDICARE, SELFPAY ==
--- NOTE | 2023-04-25 14:14 | A.OFFVIS_ITS ---
Intake Vital Signs 04/25/23 14:16 Height 5 ft 7 in Weight 216 lb 0.848 oz BMI 33.8 BP 144/66 H Blood Pressure Location Lt brachial Position Sitting Pulse 101 H Pulse Source Pulse Oximeter Pulse Oximetry (%) 92 Oxygen Delivery Method Room Air Intake Visit Reasons: Shortness of breath Allergies No Known Allergies Allergy (Verified 04/25/23 14:19) HPI HPI Comments History of Present Illness Details The patient is an 82 year old female with history of pulmonary embolism compliant with xarelto, aortic stenosis, hld, htn, MR, chronic low back pain, and venous insufficiency presents to the ED for evaluation of malaise, weakness, chest congestion, sore throat, cough with yellow sputum production, headache, and chills ongoing for 6 days and worsening. There has been shortness of breath more recently. No fevers reported. No known sick contacts. No abd pain, n/v/d, lightheadedness, palpitations, or chest pain. She has been noted to slightly choke occasionally when eating and drinking. No recent illness or hospitalizat ion. On arrival, pt hypoxic to 79% improved to 89% on NC and was transitioned to high flow O2 at 50%, initially tachypneic to 22 and tachycardic to 106 which have imrpoved. Patient now breathing comfortably and denies distress. There is a mild leukocytosis of 12.0, no bandemia. Renal function and electrolytes normal except for mild hyponatremia 134. Hepatic panel normal. Negative for COVID-19, influenza, RSV. CXR showing patchy left greater than right bibasilar airspace opacities which may reflect infection or aspiration. In the ED, given 1g IV ceftriaxone and 500mg IV azithromycin.? The patient was admitted to the intermediate medical care unit on high-flow 50% and 35 L maintaining a pulse ox in the low 90s.? Denies any pleuritic discomfort.? On further questioning the patient states that 2 months ago she was evaluated in a hospital in [place] for worsening respiratory symptoms.? She was told per the patient's report that she has recurrent blood clots and some of them appear to be chronic.? Therefore she was placed back on Xarelto.? She has been on it for a couple months now.? She also has some leg swelling. 03/10/2023 the patient is here for hospital follow-up visit. She was admitted to the [facility] with acute respiratory failure. She did have a CT scan that time demonstrating no evidence of any thromboembolic disease. However, she had evidence of significant pneumonitis and airspace disease. Her viral panel was positive for coronavirus likely precipitating the significant viral illness affecting her lungs. The patient was on high-flow. She was discharged on oxygen. 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 She had been on Xarelto for many years and then stopped. When she will back to [place] the patient underwent a pulmonary angiography in additional testing. She was found to be hypoxic and placed on oxygen. The recommendation for her was to go back on anticoagulation which she did. Upon discharge from the hospital the patient has been prescribe oxygen although she has not used it. She has not felt the need to use it at nighttime or with activity. The the she is trying to fly back to [place]. Clinically the patient feels back to baseline. During the visit we did do a brief walking oximetry 6 minute walk test. Unfortunately the patient did desaturate down to 80% and was noted quickly that heart rate was increasing to about 125 beats per minute. The patient was visibly dyspneic. the patient was placed on 2 L nasal cannula and she was ambulated again and she maintain a pulse ox of 91-92% with activity and heart rate was better about 110. the patient needs to use oxygen primarily with activity. The I strongly recommended to the patient that she is not to travel unless she has a portable oxygen concentrator. She understands that that that capping pressure she would have a hard time with her breathing and could be detrimental to her heart and o ther end organs. the patient understands that through the [facility] getting a POC will take at least 6 months or more. If she is looking to traveling to [place] at the earliest of her convenience she would have to consider getting a POC herself. One that is [facility] approved. also, she did undergo an echocardiogram demonstrating [id number] aortic stenosis. And some diastolic dysfunction. I did give her copies of the echo and also the CT scan for her to take with her when she goes back to [place]. She was wondering if she can come off the anticoagulation since she did have any blood clots in the medication is very expensive. I advised her to continue on the Xarelto until she follows in [place] with her care team that recommended to go back at [facility]. 04/25/2023 the patient is here for a pulmonary follow-up visit. She is scheduled to fly to [place] in the coming weeks. We did review again her imaging studies. She had a chest x-ray in February 2023 demonstrating again interstitial changes. In addition to that we did review her CTA demonstrating a very dilated pulmonary trunk suggesting significant pulmonary hypertension. No evidence of any thromboembolic disease although she was on Xarelto. The patient still continues to require oxygen supplementation. She is opted to travel without the oxygen in though it is a risk. She understands that she is already developing significant cardiac stress and hypoxemia could worsen that further. In addition to that she is stopped taking her diuretics. She is been using green tea. Explained to her that degree in the stimulant and potentially causing more tachycardia although it is a diuretic is not safe for heart. She needs to go back take her Lasix. [facility] Medical History (Updated 03/11/23 @ 00:10 by Martín Cote MD) Aortic stenosis Dyspepsia Hypertension Lumbar pain Mitral regurgitation Pulmonary emboli Pulmonary hypertension Pure hypercholesterolemia Venous (peripheral) insufficiency Surgical History History of abdominoplasty History of tubal ligation Hx of cardiac cath Family History Father Stroke Mother Stroke Social History Household Members: Spouse Housing: House Do you presently have visiting nurse or other home services: No Alcohol intake: never Patient Tobacco Use Status: Never used Tobacco e-Cigarette/Vaping Use: Never Used Second Hand Smoke Exposure: No service: No Current occupational status: retired and disabled Cognitive needs: No Hearing needs: No Vision needs: No Review of Systems Const All systems reviewed & are unremarkable except as noted in HPI and below Eyes Reports no additional complaints, Denies change in vision and Denies other visual disturbances Card Denies chest pain at rest, Denies chest pain with activity, Denies edema, Denies irregular heart rhythm, Denies claudication, Denies dyspnea, Reports dyspnea on exertion, Denies orthopnea, Denies paroxysmal nocturnal dyspnea and Denies slow heart rate Resp Denies cough, Denies dyspnea and Reports dyspnea on exertion GI Denies abdominal pain, Denies change in bowel habits, Denies excessive flatus, Denies nausea and Denies vomiting Denies urinary incontinence, Denies urinary hesitancy and Denies urinary urgency Musc Denies abnormal gait, Denies atrophy, Denies deformity and Denies limited range of motion Skin/Breast Denies bleeding lesions, Denies changing lesions and Denies rash Neuro Denies abnormal gait, Denies behavioral changes and Denies lack of coordination Psych Denies behavioral changes Physical Exam Vital Signs: Last Vital Signs Pulse 101 H 04/25/23 14:16 BP 144/66 H 04/25/23 14:16 Pulse Ox 92 04/25/23 14:16 Oxygen Delivery Method Room Air 04/25/23 14:16 BMI result Body Mass Index 33.8 Const General: comfortable HEENT Head: Yes normocephalic Neck Neck: Yes supple Chest Chest palpation & inspection: normal inspection of the chest Resp Effort & Inspection: normal respiratory effort, able to speak in complete sentences, no respiratory distress and no use of accessory muscles Auscultation: no crackles, no rales, no rhonchi, no wheezes and diminished lung sounds Cardio Rate: regular rate Heart sounds: S1 normal heart sound present, S2 normal heart sound present and Murmur heart sound present GI Inspection: No distended Palpation (GI): Soft to palpation and nontender Neuro Other: grossly nonfocal Extrem General: Yes no pedal edema Assessment & Plan Assessment & Plan (1) Pulmonary hypertension: Code(s): I27.20 - Pulmonary hypertension, unspecified (2) Aortic stenosis: Code(s): I35.0 - Nonrheumatic aortic (valve) stenosis (3) SOB (shortness of breath) on exertion: Code(s): R06.02 - Shortness of breath Plan The patient will look into a portable oxygen concentrator. Ideally a portable oxygen concentrator that can also keep her on 2 L continuous or at least 5 L pulse. She will need enough battery life to be able to cover her trip and also potential delays. continue diuresis as tolerated continue Xorelto F/U as needed, will be leaving to [facility] in the coming weeks. Then needs to establish care with pulmonary and cardiology Medications: Discontinued atorvastatin 10 mg PO DAILY 90 tabs 2RF E78.00 - Pure hypercholesterolemia, unspecified rivaroxaban must administer with evening meal 20 mg PO DAILY 90 days 90 tabs 0RF I26.99 - Other pulmonary embolism without acute cor pulmonale Coding Level of Care Code Est Pt Level 4 (73936) Diagnoses Pulmonary hypertension I27.20 Aortic stenosis I35.0 SOB (shortness of breath) on exertion R06.02 Time Spent (min) 18
[2023-04-25 14:16] VITALS: BP 144/66; PULSE 101; O2SAT 92; BMI 33.8
== END 2023-04-25 14:46 | disposition home or self-care (01) ==
PROVIDERS: PCP Internal Medicine; Visit Provider Hospitalist
DX: I27.20 Pulmonary hypertension, unspecified (principal); I35.0 Nonrheumatic aortic (valve) stenosis; R06.02 Shortness of breath
CPT/HCPCS: 99214

== ENCOUNTER → 2023-04-25 14:13 | Outpatient (BNVA) | payer MEDICARE, SELFPAY | PROVIDERS: PCP Internal Medicine; Visit Provider Hospitalist | DX: R06.02 Shortness of breath (principal); I27.20 Pulmonary hypertension, unspecified; I35.0 Nonrheumatic aortic (valve) stenosis; Z79.01 Long term (current) use of anticoagulants | CPT/HCPCS: 99212 ==

== ENCOUNTER 2025-04-01 13:22 | Outpatient (AMB) | payer MEDICARE, SELFPAY ==
--- NOTE | 2025-04-01 13:25 | MHC.OFFVIS ---
Vital Signs 04/01/25 13:26 Height 5 ft 7 in Weight 218 lb 4.122 oz BMI 34.2 BP 174/100 H Blood Pressure Location Lt brachial Position Sitting Pulse 95 Pulse Source Pulse Oximeter Pulse Oximetry (%) 86 L Oxygen Delivery Method Nasal Cannula Oxygen Flow Rate 2 Intake Visit Reasons: Shortness of breath Allergies No Known Allergies Allergy (Verified 04/01/25 13:29) HPI Comments Details: The patient is an 84 year old female with history of pulmonary embolism compliant with xarelto, aortic stenosis, hld, htn, MR, chronic low back pain, and venous insufficiency presents to the ED for evaluation of malaise, weakness, chest congestion, sore throat, cough with yellow sputum production, headache, and chills ongoing for 6 days and worsening. There has been shortness of breath more recently. No fevers reported. No known sick contacts. No abd pain, n/v/d, lightheadedness, palpitations, or chest pain. She has been noted to slightly choke occasionally when eating and drinking. No recent illness or hospitalization. On arrival, pt hypoxic to 79% improved to 89% on NC and was transitioned to high flow O2 at 50%, initially tachypneic to 22 and tachycardic to 106 which have imrpoved. Patient now breathing comfortably and denies distress. There is a mild leukocytosis of 12.0, no bandemia. Renal function and electrolytes normal except for mild hyponatremia 134. Hepatic panel normal. Negative for COVID-19, influenza, RSV. CXR showing patchy left greater than right bibasilar airspace opacities which may reflect infection or aspiration. In the ED, given 1g IV ceftriaxone and 500mg IV azithromycin.? The patient was admitted to the intermediate medical care unit on high-flow 50% and 35 L maintaining a pulse ox in the low 90s.? Denies any pleuritic discomfort.? On further questioning the patient states that 2 months ago she was evaluated in a hospital in [place] for worsening respiratory symptoms.? She was told per the patient's report that she has recurrent blood clots and some of them appear to be chronic.? Therefore she was placed back on Xarelto.? She has been on it for a couple months now.? She also has some leg swelling. 03/10/2023 the patient is here for hospital follow-up visit. She was admitted to the [facility] with acute respiratory failure. She did have a CT scan that time demonstrating no evidence of any thromboembolic disease. However, she had evidence of significant pneumonitis and airspace disease. Her viral panel was positive for coronavirus likely precipitating the significant viral illness affecting her lungs. The patient was on high-flow. She was discharged on oxygen. 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 She had been on Xarelto for many years and then stopped. When she will back to [place] the patient underwent a pulmonary angiography in additional testing. She was found to be hypoxic and placed on oxygen. The recommendation for her was to go back on anticoagulation which she did. Upon discharge from the hospital the patient has been prescribe oxygen although she has not used it. She has not felt the need to use it at nighttime or with activity. The the she is trying to fly back to [place]. Clinically the patient feels back to baseline. During the visit we did do a brief walking oximetry 6 minute walk test. Unfortunately the patient did desaturate down to 80% and was noted quickly that heart rate was increasing to about 125 beats per minute. The patient was visibly dyspneic. the patient was placed on 2 L nasal cannula and she was ambulated again and she maintain a pulse ox of 91-92% with activity and heart rate was better about 110. the patient needs to use oxygen primarily with activity. The I strongly recommended to the patient that she is not to travel unless she has a portable oxygen concentrator. She understands that that that capping pressure she would have a hard time with her breathing and could be detrimental to her heart and other end organs. the patient understands that through the [employer] getting a POC will take at least 6 months or more. If she is looking to traveling to [place] at the earliest of her convenience she would have to consider getting a POC herself. One that is [facility] approved. also, she did undergo an echocardiogram demonstrating [id number] aortic stenosis. And some diastolic dysfunction. I did give her copies of the echo and also the CT scan for her to take with her when she goes back to [place]. She was wondering if she can come off the anticoagulation since she did have any blood clots in the medication is very expensive. I advised her to continue on the Xarelto until she follows in [place] with her care team that recommended to go back at [facility]. 04/25/2023 the patient is here for a pulmonary follow-up visit. She is scheduled to fly to [place] in the coming weeks. We did review again her imaging studies. She had a chest x-ray in February 2023 demonstrating again interstitial changes. In addition to that we did review her CTA demonstrating a very dilated pulmonary trunk suggesting significant pulmonary hypertension. No evidence of any thromboembolic disease although she was on Xarelto. The patient still continues to require oxygen supplementation. She is opted to travel without the oxygen in though it is a risk. She understands that she is already developing significant cardiac stress and hypoxemia could worsen that further. In addition to that she is stopped taking her diuretics. She is been using green tea. Explained to her that degree in the stimulant and potentially causing more tachycardia although it is a diuretic is not safe for heart. She needs to go back take her Lasix. 04/01/2025 the patient is here for a pulmonary follow-up visit. The patient is having hard time with the breathing. She is using her portable oxygen concentrator with good effect. She feels more dyspneic and has increased lower extremity edema. She is not currently on a diuretic and she should be on 1. Therefore she will start the Lasix 20 mg daily. In the meantime she needs to also continue with the Adempas. She has been on the end then best for pulmonary hypertension. He has had a cardiac catheterization and echocardiogram spoke demonstrating evidence of pulmonary hypertension. The cardiac catheterization she had an [place]. The last echocardiogram demonstrated moderate pulmonary hypertension. She does respond well to the Adempas and she should continue. Will try to order it for her here. In the meantime she will start the diuretic to help her with the volume status. During our evaluation she did go for brief walking oximetry and we documented that she was not acting differently activating her portable oxygen concentrator because she is breathing through her mouth. We did talk about her breathing technique and also making sure she take deep breaths to make sure she had better gas exchange. When she was able to do that she was able to increase her oxygen pulse ox to 90% on 2 L pulse. Prior to that she was around 81% on 2 L pulse. [facility] Medical History (Updated 04/01/25 @ 21:11 by Martín Cote MD) Pulmonary hypertension Pulmonary emboli Aortic stenosis Mitral regurgitation Lumbar pain Venous (peripheral) insufficiency Dyspepsia Hypertension Pure hypercholesterolemia Surgical History Hx of cardiac cath History of abdominoplasty History of tubal ligation Family History Father Stroke Mother Stroke Social History Household Members: Spouse Housing: House Do you presently have visiting nurse or other home services: No Alcohol intake: never Patient Tobacco Use Status: Never used Tobacco e-Cigarette/Vaping Use: Never Used Second Hand Smoke Exposure: No service: No Current occupational status: retired and disabled Cognitive needs: No Hearing needs: No Vision needs: No Review of Systems Const All systems reviewed & are unremarkable except as noted in HPI and below Eyes Reports no additional complaints, Denies change in vision and Denies other visual disturbances ENT Reports no additional complaints Card Denies chest pain at rest, Denies chest pain with activity, Reports edema, Denies irregular heart rhythm, Denies claudication, Reports leg edema, Reports dyspnea, Reports dyspnea on exertion, Denies orthopnea, Denies paroxysmal nocturnal dyspnea and Denies slow heart rate Resp Denies cough, Reports dyspnea and Reports dyspnea on exertion GI Denies abdominal pain, Denies change in bowel habits, Denies excessive flatus, Denies nausea and Denies vomiting Denies urinary incontinence, Denies urinary hesitancy and Denies urinary urgency Musc Denies abnormal gait, Denies atrophy, Denies deformity and Denies limited range of motion Skin/Breast Denies bleeding lesions, Denies changing lesions and Denies rash Neuro Denies abnormal gait, Denies behavioral changes and Denies lack of coordination Psych Denies behavioral changes Physical Exam Vital Signs: Last Vital Signs Pulse 95 04/01/25 13:26 BP 174/100 H 04/01/25 13:26 Pulse Ox 86 L 04/01/25 13:26 Oxygen Delivery Method Nasal Cannula 04/01/25 13:26 Oxygen Flow Rate 2 04/01/25 13:26 BMI result Body Mass Index 34.2 Const General: comfortable HEENT Head: Yes normocephalic Neck Neck: Yes supple Chest Chest palpation & inspection: normal inspection of the chest Resp Effort & Inspection: normal respiratory effort, able to speak in complete sentences, no respiratory distress and no use of accessory muscles Auscultation: no crackles, no rales, no rhonchi, no wheezes and diminished lung sounds Cardio Rate: regular rate Heart sounds: S1 normal heart sound present, S2 normal heart sound present and Murmur heart sound present GI Inspection: No distended Palpation (GI): Soft to palpation and nontender Neuro Other: grossly nonfocal Extrem General: No clubbing, No cyanosis and Yes edema Assessment & Plan Assessment & Plan (1) Pulmonary hypertension: Code(s): I27.20 - Pulmonary hypertension, unspecified Category: Medical (2) Aortic stenosis: Code(s): I35.0 - Nonrheumatic aortic (valve) stenosis Category: Medical Qualifiers: Cardiac valve disease etiology: etiology unspecified Qualified Code(s): I35.0 - Nonrheumatic aortic (valve) stenosis (3) SOB (shortness of breath) on exertion: Code(s): R06.02 - Shortness of breath Category: Medical (4) Post herpetic neuralgia: Code(s): B02.29 - Other postherpetic nervous system involvement Category: Medical Plan continue Adempas start diuresis as tolerated bloodwork next week continue Xorelto continue oxygen POC 2L/rest and 3L with activity F/U 3-4 months Orders: Orders Basic Metabolic Panel Today I27.20 - Pulmonary hypertension, unspecified, I35.0 - Nonrheumatic aortic (valve) stenosis, R06.02 - Shortness of breath Complete Blood Count Auto Diff Today I27.20 - Pulmonary hypertension, unspecified, I35.0 - Nonrheumatic aortic (valve) stenosis, R06.02 - Shortness of breath Liver Panel Today I27.20 - Pulmonary hypertension, unspecified, I35.0 - Nonrheumatic aortic (valve) stenosis, R06.02 - Shortness of breath B Type Natriuretic Peptide Today I27.20 - Pulmonary hypertension, unspecified, I35.0 - Nonrheumatic aortic (valve) stenosis, R06.02 - Shortness of breath Medications: New lidocaine 5% 1 appl topical BID 35.44 grams 4RF pain B02.29 - Other postherpetic nervous system involvement Changed From furosemide 20 mg PO DAILY 90 days 90 tabs 0RF To furosemide 20 mg PO DAILY 30 tabs 5RF 30 days Refilled riociguat 2.5 mg PO TID 90 tabs 6RF 30 days I27.20 - Pulmonary hypertension, unspecified Coding Level of Care Code Est Pt Level 4 (99977) Complex EM visit Add On G2211 Diagnoses Pulmonary hypertension I27.20 Aortic valve stenosis, etiology of cardiac valve disease unspecified I35.0 Cardiac valve disease etiology: etiology unspecified SOB (shortness of breath) on exertion R06.02 Post herpetic neuralgia B02.29 Time Spent (min) 30
[2025-04-01 13:26] VITALS: BP 174/100; PULSE 95; O2SAT 86; BMI 34.2
== END 2025-04-01 14:33 | disposition home or self-care (01) ==
LOC: HO.HPS 13:23
PROVIDERS: PCP Internal Medicine; Visit Provider Hospitalist
DX: I27.20 Pulmonary hypertension, unspecified (principal); I35.0 Nonrheumatic aortic (valve) stenosis; R06.02 Shortness of breath; B02.29 Other postherpetic nervous system involvement
CPT/HCPCS: 99214; G2211

== ENCOUNTER → 2025-04-01 13:22 | Outpatient (BNVA) | payer MEDICARE, SELFPAY | PROVIDERS: PCP Internal Medicine; Visit Provider Hospitalist | DX: I27.20 Pulmonary hypertension, unspecified (principal); I35.0 Nonrheumatic aortic (valve) stenosis; R06.02 Shortness of breath; B02.29 Other postherpetic nervous system involvement | CPT/HCPCS: 99212 ==

== ENCOUNTER 2025-04-09 11:27 | Outpatient (REF) | payer MEDICARE, SELFPAY ==
[2025-04-09 11:58] LABS: MANUAL DIFF FLAG NO
[2025-04-09 12:07] LABS: Hematocrit 39.6 % (37.0-47.0); Hemoglobin 13.0 g/dl (12.0-16.0); Imm Gran Abs Auto 0.02 X10*3/uL (0.00-0.03); Imm Gran Pct Auto 0.3 % (0.0-0.4); Lymphocytes Absolute Auto 0.9 X10*3/uL (1.2-4.9); Mean Corpuscular HGB Conc 32.8 g/dl (31.0-35.0); Mean Corpuscular Hemoglobin 29.4 pg (27.0-33.0); Mean Corpuscular Volume 89.6 fL (80.0-98.0); NRBC Abs Auto 0.000 X10*3/uL (0.0-0.012); NRBC Pct Auto 0.0 /100WBC (0.0-0.2); Platelet Count 245 X10*3/uL (160-400); Red Blood Count 4.42 X10*6/uL (4.20-5.50); White Blood Count 6.1 X10*3/uL (4.8-10.8)
[2025-04-09 12:35] LABS: B Type Natriuretic Peptide 144 pg/mL (<100)
--- OUTSIDE RECORDS SUMMARY | 2025-04-09 12:35 | XMS_ITS | Patient Health Record ---
Author Organization [facility] Address [address] [place] [address] Care Team Providers Care Station Mechanic Apprentice Name Role Phone Trina Briones Primary Care Provider Luis Sol Jr Unavailable Reason For Referral No Information Medications Medication SIG (Take, Route, Frequency, Duration) Notes Start Date End Date Status Lisinopril 40mg 1 tablet Orally Once a day Active Colyte with Flavor Packs 240 GM As directed Orally Over the specified time. 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 (Z79.82) Active confirmed Plan Of Treatment Pending Test Test Name Order Date COLONOSCOPY WITH BIOPSY 06/09/2011 COLONOSCOPY REMOVAL OF LESION SNARE NESTOR OLIVA 06/09/2011 Future Test Test Name Order Date COLONOSCOPY 06/02/2011 COLONOSCOPY 05/21/2016 Insurance Providers Payer Name Payer Address Payer Phone Subscriber Number Group Number Insured Name Patient Relationship to Insured Coverage Start Date Coverage End Date [employer] OF [employer] [address] [place] [address] [id number] CLOTILDE LUBIN Self - patient is the insured Medical (General) History Medical History History ICD Code colonoscopy 06-09-2011 colonic polyps hypertension pulmonary embolism elevated cholesterol Surgical History Surgery Date(Month/Year) abdominoplasty ankle surgery tubal ligation
[2025-04-09 12:52] LABS: Alanine Aminotransferase 9 U/L (0-31); Albumin Level 4.0 g/dL (3.5-5.0); Alkaline Phosphatase 85 U/L (39-117); Anion Gap 12 (12-20); Aspartate Amino Transferase 20 U/L (5-31); Blood Urea Nitrogen 24 mg/dL (9-16); Calcium 8.9 mg/dL (8.4-10.2); Carbon Dioxide 29 mmol/L (22-29); Chloride 105 mmol/L (96-108); Estimated Glomerular Filt Rate > 60; Potassium 4.2 mmol/L (3.3-5.1); Sodium 142 mmol/L (135-145); Total Protein 7.3 g/dL (6.5-8.0)
== END 2025-04-09 11:28 | disposition home or self-care (01) ==
LOC: HO.LAB 11:27
PROVIDERS: Visit Provider Hospitalist
DX: I27.20 Pulmonary hypertension, unspecified (principal); I35.0 Nonrheumatic aortic (valve) stenosis; R06.02 Shortness of breath
CPT/HCPCS: 36415; 80048; 80076; 83880; 85025

== ENCOUNTER 2025-07-08 11:03 | Outpatient (AMB) | payer MEDICARE, SELFPAY ==
--- NOTE | 2025-07-08 13:03 | MHC.OFFVIS ---
Intake Visit Reasons: 6MWT Bundle Breaker Required: Yes Bundle Breaker Name: Peyton Cote Accompanied by: Daughter Allergies No Known Allergies Allergy (Verified 04/01/25 13:29) [facility] Medical History (Updated 07/08/25 @ 19:37 by Martín Cote MD) Pulmonary hypertension Pulmonary emboli Aortic stenosis Mitral regurgitation Lumbar pain Venous (peripheral) insufficiency Dyspepsia Hypertension Pure hypercholesterolemia Surgical History Hx of cardiac cath History of abdominoplasty History of tubal ligation Family History Father Stroke Mother Stroke Social History Household Members: Spouse Housing: House Do you presently have visiting nurse or other home services: No Alcohol intake: never Patient Tobacco Use Status: Never used Tobacco e-Cigarette/Vaping Use: Never Used Second Hand Smoke Exposure: No service: No Current occupational status: retired and disabled Cognitive needs: No Hearing needs: No Vision needs: No Office Procedures 6 Minute Walk Time:: 11:30 SPO2 % at rest: 81 Pulse at rest: 101 SPO2 % during excercise: 84 Pulse during excercise: 110 SPO2 % after excercise: 92 Pulse after excercise: 112 Distance in yards walked: 50 Danna Score: 7 Performance Observations:: Patient arrived to dept with O2 saturation of 81% with pulse of 101. O2 applied at 2L via nasal cannula with O2 sat returned to 92%. Patient walked on level ground unassisted.. After 1.5 minutes O2 sat dropped to 84% pulse of 110..O2 applied via nasal cannula at 2L with return to 92%. Continued walk for another 1.5 minutes and O2 sat dropped to 86% O2 increased to 3L which did very little. Increased O2 to 4L with return of O2 sat returned to 92-93%..Finished walk with O2 at 4L maintaining O2 sat of 91-92% and pulse 100-108. Patient did require the use of supplemental oxygen at rest 2L and 4L with exertion. Patients family endorses that patient is very sob with any exertion. [id number] - 6 Minute Walk Assessment & Plan Assessment & Plan (1) Pulmonary hypertension: Code(s): I27.20 - Pulmonary hypertension, unspecified Category: Medical (2) Dependence on nocturnal oxygen therapy: Code(s): Z99.81 - Dependence on supplemental oxygen Category: Medical Plan Oxygen 2L at rest, 4L with activity Orders: Orders AMB 6 minute walk Today J96.01 - Acute respiratory failure with hypoxia Coding Level of Care Code Est Pt Level 1 (24221) Diagnoses Pulmonary hypertension I27.20 Dependence on nocturnal oxygen therapy Z99.81 CPT Codes Coding ([id number])
[2025-07-08 13:21] VITALS: PULSE 101; O2SAT 81
== END 2025-07-08 14:11 | disposition home or self-care (01) ==
LOC: HO.HPS 11:04
PROVIDERS: Visit Provider Hospitalist
DX: I27.20 Pulmonary hypertension, unspecified (principal); Z99.81 Dependence on supplemental oxygen
CPT/HCPCS: 94618

== ENCOUNTER → 2025-07-08 11:03 | Outpatient (BNVA) | payer MEDICARE, SELFPAY | PROVIDERS: Visit Provider Hospitalist | DX: J96.01 Acute respiratory failure with hypoxia (principal); I27.20 Pulmonary hypertension, unspecified; Z99.81 Dependence on supplemental oxygen | CPT/HCPCS: 94618; 99211 ==

== ENCOUNTER 2025-08-09 08:12 | Outpatient (REF) | payer MEDICARE, SELFPAY ==
[2025-08-09 09:48] LABS: Alanine Aminotransferase 7 U/L (0-31); Albumin Level 4.3 g/dL (3.5-5.0); Alkaline Phosphatase 80 U/L (39-117); Anion Gap 13 (12-20); Aspartate Amino Transferase 23 U/L (5-31); Blood Urea Nitrogen 19 mg/dL (9-16); Calcium 8.9 mg/dL (8.4-10.2); Carbon Dioxide 27 mmol/L (22-29); Chloride 106 mmol/L (96-108); Cholesterol 202 mg/dL (<200); Estimated Glomerular Filt Rate > 60; HDL Cholesterol 53 mg/dL (>40); Potassium 3.5 mmol/L (3.3-5.1); Sodium 142 mmol/L (135-145); Total Protein 7.7 g/dL (6.5-8.0); Triglycerides 143 mg/dL (<150)
== END 2025-08-09 08:13 | disposition home or self-care (01) ==
LOC: HO.LAB 08:12
PROVIDERS: PCP Internal Medicine; Visit Provider Internal Medicine
DX: E55.9 Vitamin D deficiency, unspecified (principal); E78.5 Hyperlipidemia, unspecified; I27.20 Pulmonary hypertension, unspecified
CPT/HCPCS: 36415; 80053; 80061; 82306

== ENCOUNTER 2025-08-13 14:55 | Outpatient (AMB) | payer MEDICARE, SELFPAY ==
[2025-08-13 14:58] VITALS: BP 134/64; PULSE 75; RESP 16; TEMP 36.2; O2SAT 91; BMI 32.6
--- NOTE | 2025-08-13 14:58 | MHC.PC.OV ---
Vital Signs 08/13/25 14:58 Height 5 ft 7 in Weight 208 lb 2 oz BMI 32.6 BP 134/64 Blood Pressure Location Lt brachial Position Sitting Respiration 16 Pulse 75 Pulse Source Pulse Oximeter Temp 97.1 F Temp Source Temporal Artery Scan Pulse Oximetry (%) 91 L Oxygen Delivery Method Nasal Cannula Oxygen Flow Rate 2 Intake Visit Reasons: Follow Up Multiple Slide Operator Required: Yes Multiple Slide Operator Name: [id number] carney Accompanied by: Self / Same As Patient Allergies No Known Allergies Allergy (Verified 08/13/25 15:14) Medication List - Last Reconciled 08/13/25 by Trina Escobedo MD apixaban (Eliquis) 5 mg PO BID 30 days atorvastatin 10 mg PO DAILY 90 days cholecalciferol (vitamin D3) 25 mcg PO DAILY lisinopril 40 mg PO DAILY 90 days riociguat 2.5 mg PO TID 30 days rivaroxaban (Xarelto) 20 mg PO QPM 90 days Tobacco use date assessed: 08/13/25 Fall risk assessment: No Falls in past year Last assessed Fall Risk: 08/13/25 Dental Screening Dental Screen Date: 08/13/25 Did you have a dental visit in the last 12 months?: Yes Did you have a dental problem in the last 6 months where you did not have access to dental care?: No Was dental information given to patient?: Patient has dentist HPI HPI Comments History of Present Illness Details The patient is an 84 year old female presenting for follow-up for chronic conditions including pulmonary hypertension and hypercholesterolemia. The patient has a history of pulmonary hypertension and is managed by a wet room supervisor, Dr. Cote. She takes riociguat (Adempas) 2.5 mg three times a day for this condition. Her last appointment with the wet room supervisor was in January, and she underwent a walking test which led to a prescription for home oxygen tanks. She reports bone pain and has a history of osteoarthritis. Her last bone densitometry was in 2022 and was normal, but she is due for a repeat scan. Recent lab work showed a total cholesterol of 202 mg/dL and an LDL of 121 mg/dL. She has started taking atorvastatin 10 mg for her cholesterol. Her labs also indicated prediabetes with a blood sugar of 107 mg/dL, a value that has been stable for three years, and a low vitamin D level. She is also on lisinopril 40 mg. An echocardiogram from two years ago showed mild to moderate aortic stenosis and a normal ejection fraction. She has no known medication allergies. [facility] Medical History (Updated 08/13/25 @ 21:25 by Trina Escobedo MD) Pulmonary hypertension Pulmonary emboli Aortic stenosis Mitral regurgitation Lumbar pain Venous (peripheral) insufficiency Dyspepsia Hypertension Pure hypercholesterolemia Surgical History Hx of cardiac cath History of abdominoplasty History of tubal ligation Family History Father Stroke Mother Stroke Social History Household Members: Spouse Housing: House Do you presently have visiting nurse or other home services: No Alcohol intake: never Patient Tobacco Use Status: Never used Tobacco e-Cigarette/Vaping Use: Never Used Second Hand Smoke Exposure: No service: No Current occupational status: retired and disabled Cognitive needs: No Hearing needs: No Vision needs: No Questionnaire PHQ-9 Over the last 2 weeks, how often have you been bothered by any of the following problems? 1. Little interest or pleasure in doing things: not at all 2. Feeling down, depressed, or hopeless: not at all 3. Trouble falling or staying asleep, or sleeping too much: not at all 4. Feeling tired or having little energy: not at all 5. Poor appetite or overeating: not at all 6. Feeling bad about yourself - or that you are a failure or have let yourself or your family down: not at all 7. Trouble concentrating on things, such as reading the newspaper or watching television: not at all 8. Moving or speaking so slowly that other people could have noticed. Or the opposite - being so fidgety or restless that you have been moving around a lot more than usual: not at all 9. Thoughts that you would be better off or of hurting yourself in some way: not at all Total score: 0 Depression Screening Interpretation: Negative Depression Screening Done: Yes 43574 - PHQ-9 Billing: Yes Source: Developed by Drs. Servando Flowers, Jennifer Farhan Tai and colleagues, with an educational jean from [employer]. Thrive Questionnaire Date Thrive assessed: 08/13/25 I am a: Patient What is your living situation today?: I have a steady place to live Within the past 12 months, did the food you bought not last and you didn't have the money to get more?: Never true Within the past 12 months, did you worry whether your food would run out before you got money to buy more?: Never true Do you have trouble paying for medicines?: Yes Do you have trouble getting transportation to medical appointments?: No Do you have trouble paying your heating and electricity bill?: No Do you have trouble taking care of your child, family member or friend?: No Do you have trouble with day-to-day activities such as bathing, preparing meals, shopping, managing finances, etc.?: No Are you currently unemployed and looking for a job?: No Are you interested in more education?: No Please select the resources that you would like help with: None Currently or been in a relationship where the following occur: I choose not to answer THRIVE Score: 0 AUDIT C Alcohol Use Questionnaire (AUDIT-C) 1. How often do you have a drink containing alcohol?: Never Total Score: 0 Score Reviewed/Action Taken: No SUZI-7 AMB Questionnaire SUZI-7 Date SUZI - 7 assessed: 08/13/25 Feeling nervous, anxious, or on edge: 1 = Several days Not being able to stop or control worryin = Not at all Worrying too much about different things: 1 = Several days Trouble relaxin = Not at all Being so restless that it is hard to sit still: 0 = Not at all Becoming easily annoyed or irritable: 0 = Not at all Feeling afraid as if something awful might happen: 0 = Not at all Total SUZI-7 score (0-4 normal; 5-9 mild; 10-14 moderate; 15-21 severe): 2 Source: Developed by Drs. Servando Flowers, Farhan Ramirez and colleagues, with an educational jean from [employer]. SUZI-7 Assessment Billing SUZI-7 Assessment Tool: SUZI-7 Assessment 51488 Review of Systems Const All systems reviewed & are unremarkable except as noted in HPI and below Card Denies chest pain at rest, Denies chest pain with activity, Denies edema, Denies irregular heart rhythm, Denies claudication, Denies dyspnea, Denies dyspnea on exertion, Denies orthopnea, Denies paroxysmal nocturnal dyspnea and Denies slow heart rate Resp Denies cough, Denies dyspnea and Denies dyspnea on exertion Physical exam (Primary Care) Vital Signs: Last Vital Signs Temp 97.1 F 08/13/25 14:58 Pulse 75 08/13/25 14:58 Resp 16 08/13/25 14:58 BP 134/64 08/13/25 14:58 Pulse Ox 91 L 08/13/25 14:58 Oxygen Delivery Method Nasal Cannula 08/13/25 14:58 Oxygen Flow Rate 2 08/13/25 14:58 BMI result Body Mass Index 32.6 BMI Assessment/Plan discussion: High BMI High, discussed plan: lifestyle, weight reduction, dietary and physical activity Tobacco/Smoking Status: Tobacco use Status Tobacco use date assessed 08/13/25 08/13/25 14:59 Patient Tobacco Use Status Never used Tobacco 08/13/25 14:59 e-Cigarette/Vaping Use Never Used 08/13/25 14:59 PHQ-9: PHQ-9 Score PHQ-9: Total score 0 08/13/25 16:03 Depression Screening Interpretation: Negative Thrive Assessment: Date of Thrive Assessment Date Thrive assessed 08/13/25 08/13/25 14:59 Currently or been in a relationship where the following occur: I choose not to answer Resp Effort & Inspection: normal respiratory effort Auscultation: clear to auscultation bilaterally Cardio Jugular venous distension: no JVD Rate: regular rate Rhythm: regular rhythm Heart sounds: S1 normal heart sound present and S2 normal heart sound present Extrem General: Yes full ROM Immunizations Tenivac (PF) 5 Lf unit-2 Lf unit/0.5 mL intramuscular syringe Performing Provider: Trina Escobedo MD [facility] Administered by: Shirley Bui LPN on 08/13/25 16:02 Dose Route Admin Location Dispensed Lot Number Expiration Date [facility] [employer] Professor 0.5 mL IM Left Deltoid 0.5 mL [id number] 11/25/26 [id number] [employer] Total Dispensed Waste 0.5 mL 0 % VIS Given Date VIS Provided VIS Publication Date 08/13/25 Single Vaccine 21 Eligibility Eligibility Date Funding Source Not [facility] Eligible 08/13/25 Private Coding Level of Care Code Add On Preventative Visit Only Diagnoses Aortic stenosis I35.0 Pulmonary hypertension I27.20 Pulmonary emboli I26.99 Dyspepsia R10.13 Lipoma D17.9 Right upper quadrant abdominal pain R10.11 Additional Codes SUZI-7 Assessment Billing - SUZI-7 Assessment Tool: SUZI-7 Assessment 64364 ([id number]) PHQ-9 - 66616 - PHQ-9 Billing: Yes ([id number]) Time Spent (min) 23 Assessment & Plan Assessment & Plan (1) Aortic stenosis: Code(s): I35.0 - Nonrheumatic aortic (valve) stenosis Category: Medical (2) Pulmonary hypertension: Code(s): I27.20 - Pulmonary hypertension, unspecified Category: Medical (3) Pulmonary emboli: Code(s): I26.99 - Other pulmonary embolism without acute cor pulmonale Category: Medical (4) Dyspepsia: Code(s): R10.13 - Epigastric pain Category: Medical (5) Lipoma: Code(s): D17.9 - Benign lipomatous neoplasm, unspecified Category: Medical (6) Right upper quadrant abdominal pain: Code(s): R10.11 - Right upper quadrant pain Category: Medical Plan Plan 1. Pulmonary Hypertension The patient will continue to follow up with her wet room supervisor, Dr. Cote. She has been advised to schedule an appointment as it has been several months since her last visit in January. She will continue her current medication, riociguat (Adempas), for this condition. 2. Hypercholesterolemia The patient has started taking atorvastatin 10 mg due to recent lab results showing high cholesterol. Repeat fasting labs will be checked in 4 months to monitor her lipid levels. 3. Aortic Stenosis An echocardiogram will be repeated to assess the status of her mild to moderate aortic stenosis, which was last evaluated two years ago. 4. Osteoarthritis A referral to rheumatology was discussed to evaluate her bone pain, which may be related to osteoarthritis or another type of arthritis requiring different treatment. 5. Health Maintenance A bone densitometry scan is needed as the last one was two years ago. She will continue taking her vitamin D supplement for low levels. Repeat fasting labs, including a check for her prediabetic status, are scheduled in 4 months. Orders: Orders Lipid Panel 4 Months E78.5 - Hyperlipidemia, unspecified Comprehensive [place]. Panel Fast 4 Months I27.20 - Pulmonary hypertension, unspecified US abdomen limited Today R10.11 - Right upper quadrant pain Td Immunization Today Z23 - Encounter for immunization CA echo transthoracic complete Today I35.0 - Nonrheumatic aortic (valve) stenosis Referrals General Surgery Referral D17.9 - Benign lipomatous neoplasm, unspecified Rheumatology Referral M25.50 - Pain in unspecified joint
--- OUTSIDE RECORDS SUMMARY | 2025-08-13 19:17 | XMS_ITS | Patient Health Record ---
Author Organization [place] [facility] Address [address] [place] [address] Care Team Providers Care Spraying Machine Operator Name Role Phone Trina Briones Primary Care Provider UnavailLuis Turk Jr Unavailable Reason For Referral No Information Medications Medication SIG (Take, Route, Frequency, Duration) Notes Start Date End Date Status Lisinopril 40mg Tablet 1 tablet Orally O nce a day Active Colyte with Flavor Packs 240 GM Solution Reconstituted As directed Orally Over the specified time.; Duration: 1 day(s) 05/21/2016 Active Atorvastatin Calcium 10 MG Tablet 1 tablet Orally Once a day Active Vitamin D3 1000 UNIT Tablet 1 tablet Ora lly Once a day Active Aspir-81 81 MG Tablet Delayed Release 1 tablet Orally Once a day Active Social History Social History Additional Details Category Social Info Options Details Miscellaneous: Marital status: Occupation: retired Problems Problem Type SNOMED Code ICD Code Onset Dates Problem Status W/U Status Risk Notes Problem Right lower quadrant pain (029786431) Abdominal pain, right lower quadrant (789.03) Active confirmed Problem History of polyp of colon (situation) (102615900) Personal history of colonic polyps (V12.72) Active confirmed Problem Colon cancer screening (417760516) Colon cancer screening (Z12.11) Active confirmed Problem Long-term current use of antiplatelet drug (163382122290181) senior living (current) use of aspirin (Z79.82) Active confirmed [...] [place] [address] [place] [id number] CLOTILDE LUBIN Self - patient is the insured Medical (General) History Medical History History ICD Code colonoscopy 06-09-2011 colonic polyps hypertension pulmonary embolism elevated cholesterol Surgical History Surgery Date(Month/Year) abdominoplasty ankle surgery tubal ligation
== END 2025-08-13 15:57 | disposition home or self-care (01) ==
LOC: HO.HMCH 14:56
PROVIDERS: PCP Internal Medicine; Visit Provider Internal Medicine
DX: I35.0 Nonrheumatic aortic (valve) stenosis (principal); I27.20 Pulmonary hypertension, unspecified; I26.99 Other pulmonary embolism without acute cor pulmonale; R10.13 Epigastric pain; D17.9 Benign lipomatous neoplasm, unspecified; R10.11 Right upper quadrant pain; Z23 Encounter for immunization

== ENCOUNTER → 2025-08-13 14:55 | Outpatient (BNVA) | payer MEDICARE, SELFPAY | PROVIDERS: PCP Internal Medicine; Visit Provider Internal Medicine | DX: I27.20 Pulmonary hypertension, unspecified (principal); I35.0 Nonrheumatic aortic (valve) stenosis; I26.99 Other pulmonary embolism without acute cor pulmonale; R10.13 Epigastric pain; R10.11 Right upper quadrant pain; D17.9 Benign lipomatous neoplasm, unspecified; Z13.31 Encounter for screening for depression; Z13.39 Encounter for screening examination for other mental health and behavioral disorders; Z23 Encounter for immunization | CPT/HCPCS: 90471; 90714; 96127; 99212 ==

== ENCOUNTER 2025-08-16 11:35 | Outpatient (AMB) | payer MEDICARE, SELFPAY ==
[2025-08-16 11:37] VITALS: BP 131/58; PULSE 101; BMI 33.0
--- NOTE | 2025-08-16 11:37 | A.OFFVIS_ITS ---
Vital Signs 08/16/25 11:37 Height 5 ft 7 in Weight 211 lb BMI 33.0 BP 131/58 L Blood Pressure Location Lt brachial Position Sitting Pulse 101 H Intake Visit Reasons: Benign lipomatous neoplasm, unspecified Intake Note: Patient referred by PCP Dr. Bam Escobedo for evaluation of lipoma on posterior shoulder. Present for 20+yrs. Patient c/o: enlarging, oozing at times, tender to touch. Casting Machine Service Operator Required: Yes Casting Machine Service Operator Language: Clinical Appeals Specialist Services: Casting Machine Service Operator Offered & Declined Casting Machine Service Operator Name: Renetta Varner KAREN Accompanied by: daughter Ellen Allergies No Known Allergies Allergy (Verified 08/16/25 11:44) Medication List - Last Reconciled 08/16/25 by Kevin Hernadez MD apixaban (Eliquis) 5 mg PO BID 30 days atorvastatin 10 mg PO DAILY 90 days cholecalciferol (vitamin D3) 25 mcg PO DAILY lisinopril 40 mg PO DAILY 90 days riociguat 2.5 mg PO TID 30 days rivaroxaban (Xarelto) 20 mg PO QPM 90 days HPI Comments Details: Patient presents for consideration of a long-term ?cyst? in the posterior aspect of her left shoulder. She denies any history of trauma or instrumentation to the region reports that the ?cyst? has been there for a long time. Occasionally it itches and sometimes it drains. [facility] Medical History Pulmonary hypertension Pulmonary emboli Aortic stenosis Mitral regurgitation Lumbar pain Venous (peripheral) insufficiency Dyspepsia Hypertension Pure hypercholesterolemia Surgical History Hx of cardiac cath History of abdominoplasty History of tubal ligation Family History Father Stroke Mother Stroke Social History Household Members: Spouse Housing: House Do you presently have visiting nurse or other home services: No Alcohol intake: never Patient Tobacco Use Status: Never used Tobacco e-Cigarette/Vaping Use: Never Used Second Hand Smoke Exposure: No service: No Current occupational status: retired and disabled Cognitive needs: No Hearing needs: No Vision needs: No Review of Systems Const All systems reviewed & are unremarkable except as noted in HPI and below Physical Exam Vital Signs: Last Vital Signs Pulse 101 H 08/16/25 11:37 BP 131/58 L 08/16/25 11:37 BMI result Body Mass Index 33.0 Const General: tired appearing Nutritional Appearance: obese morbidly obese HEENT Head: Yes normal to inspection, Yes normocephalic and Yes atraumatic Eyes General: appearance normal, both eyes and all related structures Pupils: Equal, round and reactive pupils present EOM: EOMs intact bilaterally Neck Neck: Yes normal visual inspection Chest Chest palpation & inspection: normal inspection of the chest Resp Other: Uses supplemental oxygen which is chronic for her Effort & Inspection: audible wheezes and uses accessory muscles Cardio Rate: regular rate Rhythm: regular rhythm GI Inspection: Yes normal to inspection Back/Spine/Pelvis Cervical Spine: normal cervical lordosis Thoracic/Lumbar Spine: thoracic and lumbar spine normal to inspection Neuro Cranial nerves: Yes Equal, round and reactive pupils present Extrem Other: A posterior aspect of the left shoulder she exhibits approximate 2 cm diameter mobile soft tissue mass consistent with a sebaceous cyst. There was no corresponding skin change. There was no erythema edema or discharge. Assessment & Plan Assessment & Plan (1) Sebaceous cyst: Code(s): L72.3 - Sebaceous cyst Category: Medical Plan: I told the patient that her presentation was consistent with a sebaceous cyst. She indicated that she understood. Reviewed options. She indicated that she wished to manage the cyst with expectant observation and also said that she would call us should it change or should she have any questions or problems. Coding Level of Care Code New Pt Level 3 (32346) Diagnoses Sebaceous cyst L72.3 Time Spent (min) 30 Comment Record review patient visit and coordination of care time
--- OUTSIDE RECORDS SUMMARY | 2025-08-16 13:43 | XMS_ITS | Patient Health Record ---
Author Organization [place] [facility] Address [address] [place] [address] Care Team Providers Care Animal Physiology Teacher Name Role Phone Trina Briones Primary Care [...] Risk Notes Problem Right lower quadrant pain (676874556) Abdominal pain, right lower quadrant (789.03) Active confirmed Problem History of polyp of colon (situation) (911466791) Personal history of colonic polyps (V12.72) Active confirmed Problem Colon cancer screening (163498466) Colon cancer screening (Z12.11) Active confirmed Problem Long-term current use of antiplatelet drug ([id number]) [facility] (current) use of aspirin (Z79.82) Active confirmed [...] [place] [address] [place] [id number] CLOTILDE LUBIN Self - patient is the insured Medical (General) History Medical History History ICD Code colonoscopy 06-09-2011 colonic polyps hypertension pulmonary embolism elevated cholesterol Surgical History Surgery Date(Month/Year) abdominoplasty ankle surgery tubal ligation
== END 2025-08-16 11:59 | disposition home or self-care (01) ==
LOC: HO.HGS 11:36
PROVIDERS: PCP Internal Medicine; Visit Provider Surgery
DX: L72.3 Sebaceous cyst (principal)
CPT/HCPCS: 99203

== ENCOUNTER → 2025-08-16 11:35 | Outpatient (BNVA) | payer MEDICARE, SELFPAY | PROVIDERS: PCP Internal Medicine; Visit Provider Surgery | DX: L72.3 Sebaceous cyst (principal) | CPT/HCPCS: 99202 ==